=== PATIENT | female | born 1960 | race American Indian/Alaskan Native ===

== ENCOUNTER 2017-08-06 13:09 | Inpatient (IN) | payer MEDICAID ==
[2017-08-06] MEDS ORDERED: Sodium Chloride 0.9% 1,000 ML IV STA ×2 (13:23→15:48)
--- NOTE | 2017-08-06 13:35 | ED PDOC ---
Arrival/HPI - General Chief Complaint: Substance Abuse Time Seen by Provider: 08/06/17 13:11 Historian: Patient - History of Present Illness Narrative History of Present Illness (Text): 08/06/17 13:18 A 56 year old female, whose past medical history includes hypertension and substance abuse, who is brought in by EMS to the emergency department for AMS. Per EMS, patient was found by on the bathroom floor unresponsive. Patient has been administered Narcan 4 mg intranasally in the field. Upon arrival, patient found to be agitated and yelling, and she attempted to climb out of the stretcher. Here in the ER, patient has now been sedated. Limited HPI and ROS due to patient's AMS. No PMD Past Medical History - Provider Review Nursing Documentation Reviewed: Yes - Psychiatric Hx Substance Use: Yes (heroine) Family/Social History - Physician Review Nursing Documentation Reviewed: Yes Family/Social History: No Known Family HX Smoking Status: Unknown If Ever Smoked Hx Alcohol Use: No Hx Substance Use: Yes (heroine) Allergies/Home Meds Allergies/Adverse Reactions: Allergies No Known Allergies Allergy (Verified 08/06/17 13:12) Home Medications: Home Meds Medication Instructions Recorded Confirmed Unobtainable 08/06/17 08/06/17 Review of Systems - Review of Systems Systems not reviewed;Unavailable: Altered Mental Status Physical Exam Vital Signs Reviewed: Yes Vital Signs Temp Pulse Pulse Resp BP Pulse Ox 08/06/17 16:50 100 08/06/17 16:46 96 H 25 H 142/112 H 98 08/06/17 16:42 85 25 H 08/06/17 15:37 100 F H 123 H 123 H 20 121/22 L 08/06/17 13:21 100 F H 123 H 20 121/72 99 Temperature: Febrile Blood Pressure: Normal Pulse: Tachycardic Respiratory Rate: Normal Appearance: Positive for: Ill-Appearing Pain Distress: None Mental Status: Positive for: Agitated (patient in AMS state, agitated and yelling), other (obese) Finger Stick Blood Glucose: 190 - Systems Exam Pupils: Present: Pinpoint (dilated) Cardiovascular: Present: Tachycardic Medical Decision Making ED Course and Treatment: 08/06/17 13:22 Impression: 56 year old female with AMS. Plan: -- EKG -- Head CT -- Chest X-ray -- Labs -- Venous Blood Gas -- Urinalysis -- IV Fluids -- Geoden Inj. -- Reassess and disposition Progress Notes: 08/06/17 13:47 Code Sepsis called. 08/06/2017 14:23 Chest X-ray IMPRESSION: No active disease. Dictator: Raymundo Atkinson MD 08/07/17 07:42 pt with suspect heroin od. upnn arrival agited, ?withdrawla vs sepsis. note leukocytosis la, code sepsis called. geodon given in itialy for agitation. antibiotics ordered. tachycardia improved s/p fluids. accepted icu and by hospitalist. - Lab Interpretations Lab Results: 08/06/17 13:37 08/06/17 13:37 Lab Results 08/06/17 13:37: Thyroxine (T4) 8.1, Total T3 1.09, TSH 3rd Generation 0.76 08/06/17 13:37: Alcohol, Quantitative < 10 08/06/17 13:37: Salicylates < 1 L, Acetaminophen < 10.0 L 08/06/17 13:37: Sodium 141, Chloride 102, Potassium 3.1 L, Carbon Dioxide 21, Anion Gap 20, BUN 17, Creatinine 1.0, Est GFR ( Amer) > 60, Est GFR (Non- Af Amer) 58, Random Glucose 203 H, Calcium 9.7, Magnesium 2.1, Total Bilirubin 0.8, AST 225 H, ALT 83 H, Alkaline Phosphatase 116, Lactate Dehydrogenase 842 H , Total Creatine Kinase 93, Troponin I 0.02, Total Protein 8.3, Albumin 4.7, Globulin 3.7, Albumin/Globulin Ratio 1.3 08/06/17 13:37: PT 12.9 H, INR 1.12 H, APTT 26.1 08/06/17 13:37: WBC 13.4 H, RBC 3.80, Hgb 11.7 L, Hct 34.1 L, MCV 89.7, MCH 30.8 , MCHC 34.3, RDW 13.4, Plt Count 314, MPV 9.3, Gran % 53.2, Lymph % (Auto) 41.0 H, [place] % (Auto) 4.1, Eos % (Auto) 1.6, Baso % (Auto) 0.1, Gran # 7.14 H, Lymph # (Auto) 5.5 H, [place] # (Auto) 0.6, Eos # (Auto) 0.2, Baso # (Auto) 0.01 08/06/17 13:37: pO2 80 H, VBG pH 7.34, VBG pCO2 42.0, VBG HCO3 22.7, VBG Total CO2 24.0, VBG O2 Sat (Calc) 98.1 H, VBG Base Excess -3.0 L, VBG Potassium 2.8 L , Sodium 140.0, Chloride 105.0, Glucose 214 H, Lactate 6.3 H*, FiO2 21.0, Venous Blood Potassium 2.8 L I have reviewed the lab results: Yes - RAD Interpretation Radiology Orders: 08/06/17 13:22 CHEST PORTABLE [RAD] Stat 08/06/17 13:28 HEAD W/O CONTRAST [CT] Stat 08/06/17 14:04 ABD & PELVIS IV CONTRAST ONLY [CT] Stat - Medication Orders Current Medication Orders: Enoxaparin Sodium (Lovenox) 40 mg SC DAILY SUBHASH PRN Reason: Protocol Last Admin: 08/06/17 15:29 Dose: 40 mg MAR aPTT Document 08/06/17 15:29 EQ (Rec: 08/06/17 15:29 EQ [id number]) aPTT aPTT (secs) 26.1 Subcutaneous Administrations Document 08/06/17 15:29 EQ (Rec: 08/06/17 15:29 EQ [id number]) Injection Site MAR Injection Site Left Deltoid Charges for Administration # of Subcutaneous Administrations 1 Ceftriaxone Sodium (Rocephin 1 Gram Ivpb) 1 gm in 100 mls @ 100 mls/hr IVPB DAILY SUBHASH PRN Reason: Protocol Last Admin: 08/06/17 21:37 Dose: 100 mls/hr eMAR Start Stop Document 08/06/17 21:37 MG (Rec: 08/06/17 21:41 MG [id number]) Intravenous Solution Start Date 08/06/17 Start Time 21:41 Lactated Ringer's (Lactated Ringer's) 1,000 mls @ 150 mls/hr IV .Q6H40M SUBHASH Last Admin: 08/07/17 00:40 Dose: 150 mls/hr eMAR Start Stop Document 08/07/17 00:40 MG (Rec: 08/07/17 06:58 MG [id number]) Intravenous Solution Start Date 08/06/17 Start Time 00:40 Lorazepam (Ativan) 2 mg IVP Q6H PRN; Protocol PRN Reason: Agitation Pantoprazole Sodium (Protonix Inj) 40 mg IVP DAILY SUBHASH Discontinued Medications Acetaminophen (Tylenol 650 Mg Supp) 650 mg RC STAT STA Stop: 08/06/17 14:27 Last Admin: 08/06/17 15:29 Dose: 650 mg MAR Pain/Vitals Document 08/06/17 15:29 EQ (Rec: 08/06/17 15:29 EQ [id number]) Pain Reassessment Is This A Pain ReAssessment? No Sleep Is patient sleeping during reassessment? No Presence of Pain Presence of Pain Yes Sodium Chloride (Sodium Chloride 0.9%) 1,000 mls @ 999 mls/hr IV .Q1H1M STA Stop: 08/06/17 14:23 Last Admin: 08/06/17 13:34 Dose: 999 mls/hr eMAR Start Stop Document 08/06/17 13:34 EQ (Rec: 08/06/17 13:34 EQ [id number]) Intravenous Solution Start Date 08/06/17 Start Time 13:34 Vancomycin HCl (Vancomycin 1gm) 1 gm in 250 mls @ 167 mls/hr IVPB STAT STA PRN Reason: Protocol Stop: 08/06/17 15:15 Last Admin: 08/06/17 15:26 Dose: 167 mls/hr eMAR Start Stop Document 08/06/17 15:26 EQ (Rec: 08/06/17 15:28 EQ [id number]) Intravenous Solution Start Date 08/06/17 Start Time 15:27 Piperacillin Sod/Tazobactam Sod (Zosyn 3.375 In Ns 100ml) 100 mls @ 200 mls/hr IVPB STAT STA PRN Reason: Protocol Stop: 08/06/17 14:15 Last Admin: 08/06/17 14:08 Dose: 200 mls/hr eMAR Start Stop Document 08/06/17 14:08 EQ (Rec: 08/06/17 14:10 EQ [id number]) Intravenous Solution Start Date 08/06/17 Start Time 14:08 Potassium Chloride (Potassium Chloride 10 Meq/100 Ml) 10 meq in 100 mls @ 50 mls/hr IVPB Q2H SUBHASH Stop: 08/06/17 18:14 Sodium Chloride (Sodium Chloride 0.9%) 1,000 mls @ 150 mls/hr IV .Q6H40M SUBHASH Last Admin: 08/06/17 15:30 Dose: 150 mls/hr eMAR Start Stop Document 08/06/17 15:30 EQ (Rec: 08/06/17 15:30 EQ [id number]) Intravenous Solution Start Date 08/06/17 Start Time 15:30 Potassium Chloride (Potassium Chloride 20 Meq/100 Ml) 20 meq in 100 mls @ 50 mls/hr IVPB Q2H SUBHASH Stop: 08/06/17 18:44 Last Admin: 08/06/17 15:29 Dose: 50 mls/hr eMAR Start Stop Document 08/06/17 15:29 EQ (Rec: 08/06/17 15:29 EQ [id number]) Intravenous Solution Start Date 08/06/17 Start Time 15:29 Sodium Chloride (Sodium Chloride 0.9%) 1,000 mls @ 999 mls/hr IV .Q1H1M STA Stop: 08/06/17 16:48 Sodium Chloride (Sodium Chloride 0.9%) 500 mls @ 999 mls/hr IV .Q31M STA Stop: 08/06/17 16:19 Potassium Chloride (Potassium Chloride 10 Meq/100 Ml) 10 meq in 100 mls @ 50 mls/hr IVPB Q2H SUBHASH Stop: 08/06/17 22:44 Last Admin: 08/06/17 21:41 Dose: 50 mls/hr eMAR Start Stop Document 08/06/17 21:41 MG (Rec: 08/06/17 21:41 [place] [id number] Intravenous Solution Start Date 08/06/17 Start Time 21:41 Lactated Ringer's (Lactated Ringer's) 1,000 mls @ 100 mls/hr IV .Q10H [facility] Last Admin: 08/06/17 19:54 Dose: 100 mls/hr eMAR Start Stop Document 08/06/17 19:54 KGD (Rec: 08/06/17 19:54 KGD [id number]) Intravenous Solution Start Date 08/06/17 Start Time 19:54 Lorazepam (Ativan) 2 mg IVP ONCE ONE PRN Reason: Protocol Stop: 08/06/17 14:20 Last Admin: 08/06/17 14:23 Dose: 2 mg IVP Administration Document 08/06/17 14:23 EQ (Rec: 08/06/17 14:23 EQ [id number]) Charges for Administration # of IVP Administrations 1 Pneumococcal Polyvalent Vaccine (Pneumovax 23 Vaccine) 0.5 ml IM .ONCE ONE Stop: 08/06/17 15:57 Ziprasidone (Geodon Inj) 20 mg IM STAT STA PRN Reason: Protocol Stop: 08/06/17 13:24 Last Admin: 08/06/17 13:34 Dose: 20 mg IM Administration Charges Document 08/06/17 13:34 EQ (Rec: 08/06/17 13:34 EQ [id number]) Injection Site MAR Injection Site Left Deltoid Charges for Administration # of IM Administrations 1 - Scribe Statement The provider has reviewed the documentation as recorded by the Kervin Caal Provider Scribe Attestation: All medical record entries made by the Kervin were at my direction and personally dictated by me. I have reviewed the chart and agree that the record accurately reflects my personal performance of the history, physical exam, medical decision making, and the department course for this patient. I have also personally directed, reviewed, and agree with the discharge instructions and disposition. Disposition/Present on Arrival - Present on Arrival Any Indicators Present on Arrival: No History of DVT/PE: No History of Uncontrolled Diabetes: No Urinary Catheter: No History of Decub. Ulcer: No History Surgical Site Infection Following: None - Disposition Have Diagnosis and Disposition been Completed?: Yes Diagnosis: Overdose, Lactic acidosis, Sepsis, UTI (urinary tract infection) Disposition: HOSPITALIZED Disposition Time: 02:00 Patient Problems: Current Active Problems Problem Status Onset Lactic acidosis Acute Overdose Acute Sepsis Acute UTI (urinary tract infection) Acute Condition: CRITICAL
[2017-08-06 13:44] LABS: VENOUS BLOOD GAS PO2 80 mm/Hg (30-55); VENOUS BLOOD PH 7.34 (7.32-7.43)
[2017-08-06] MEDS ORDERED: Piperacillin/Tazobact 3.375 gm 100 ML IVPB STA (13:46)
[2017-08-06] MEDS ORDERED: Vancomycin 1gm in NS 250ml 1 GM/250 ML BAG IVPB STA (13:46)
[2017-08-06 13:47] LABS: BASO # 0.01 K/mm3 (0.0-2.0); BASO % 0.1 % (0.0-3.0); EOS # 0.2 (0.0-0.7); EOS % 1.6 % (1.5-5.0); GRAN # 7.14 (1.4-6.5); GRAN % 53.2 % (50.0-68.0); HEMOGLOBIN 11.7 g/dL (12.0-16.0); LYMPH # 5.5 (1.2-3.4); MEAN CELL VOLUME 89.7 fl (80.0-105.0); MEAN CORPUSCULAR HEMOGLOBIN 30.8 pg (25.0-35.0); MEAN CORPUSCULAR HGB CONC 34.3 g/dl (31.0-37.0); MEAN PLATELET VOLUME 9.3 fl (7.0-11.0); MONO # 0.6 (0.1-0.6); MONO % 4.1 % (1.0-6.0); RBC 3.8 10^6/uL (3.5-6.1); RED CELL DISTRIBUTION WIDTH 13.4 % (11.5-14.5); WHITE BLOOD COUNT 13.4 10^3/ul (4.5-11.0)
[2017-08-06 13:58] LABS: ALB/GLOB RATIO 1.3 (1.1-1.8); ALBUMIN 4.7 g/dL (3.0-4.8); ALT/SGPT 83 U/L (7-56); AST/SGOT 225 U/L (14-36); BLOOD UREA NITROGEN 17 mg/dL (7-21); CALCIUM 9.7 mg/dL (8.4-10.5); GFR AFRICAN-AMERICAN > 60; GFR NON-AFRICAN AMERICAN 58
[2017-08-06 13:59] LABS: ACETAMINOPHEN < 10.0 ug/ml (10.0-20.0); SALICYLATE < 1 mg/dL (2.0-20.0)
[2017-08-06 14:04] LABS: INR 1.12 (0.93-1.08); PARTIAL THROMBOPLASTIN TIME 26.1 Seconds (25.1-36.5); PROTHROMBIN TIME 12.9 SECONDS (9.4-12.5)
[2017-08-06 14:09] LABS: TROPONIN I 0.02 ng/mL
[2017-08-06] MEDS ORDERED: Iohexol 350 MG/100 ML VIAL ONE (14:16)
--- NOTE | 2017-08-06 14:25 | RAD ---
HISTORY: Altered mental status COMPARISON: No prior. FINDINGS: LUNGS: No active pulmonary disease. PLEURA: No significant pleural effusion identified, no pneumothorax apparent. CARDIOVASCULAR: Normal. OSSEOUS STRUCTURES: No significant abnormalities. VISUALIZED UPPER ABDOMEN: Normal. OTHER FINDINGS: None. IMPRESSION: No active disease.
[2017-08-06] MEDS ORDERED: Sodium Chloride 0.9% 1,000 ML IV SCH (14:45)
--- NOTE | 2017-08-06 15:23 | CT ---
PROCEDURE: CT HEAD WITHOUT CONTRAST. HISTORY: Altered mental status COMPARISON: None available. TECHNIQUE: Axial computed tomography images were obtained through the head/brain without intravenous contrast. Radiation dose: Total exam DLP = 891.86 mGy-cm. This CT exam was performed using one or more of the following dose reduction techniques: Automated exposure control, adjustment of the mA and/or kV according to patient size, and/or use of iterative reconstruction technique. FINDINGS: HEMORRHAGE: No intracranial hemorrhage. BRAIN: No mass effect or edema. No atrophy or chronic microvascular ischemic changes. VENTRICLES: Unremarkable. No hydrocephalus. CALVARIUM: Unremarkable. PARANASAL SINUSES: Unremarkable as visualized. No significant inflammatory changes. MASTOID AIR CELLS: Unremarkable as visualized. No inflammatory changes. OTHER FINDINGS: None. IMPRESSION: No acute intracranial abnormalities. No significant findings to account for the clinical presentation.
--- NOTE | 2017-08-06 15:26 | CT ---
PROCEDURE: CT Abdomen and Pelvis with contrast HISTORY: sepsis, leukocytosis COMPARISON: None. TECHNIQUE: Contrast dose: 100 cc Omnipaque 350 Radiation dose: Total exam DLP = 1085.89 mGy-cm. This CT exam was performed using one or more of the following dose reduction techniques: Automated exposure control, adjustment of the mA and/or kV according to patient size, and/or use of iterative reconstruction technique. FINDINGS: LOWER THORAX: Unremarkable. LIVER: Unremarkable. No gross lesion or ductal dilatation. GALLBLADDER AND BILE DUCTS: Cholelithiasis without CT evidence of acute cholecystitis. PANCREAS: Unremarkable. No gross lesion or ductal dilatation. SPLEEN: Unremarkable. ADRENALS: Unremarkable. No mass. KIDNEYS AND URETERS: Unremarkable. No hydronephrosis. No solid mass. VASCULATURE: Unremarkable. No aortic aneurysm. BOWEL: Unremarkable. No obstruction. No gross mural thickening. APPENDIX: Normal appendix. PERITONEUM: Unremarkable. No free fluid. No free air. LYMPH NODES: Unremarkable. No enlarged lymph nodes. BLADDER: Unremarkable. REPRODUCTIVE: Unremarkable. BONES: No acute fracture. OTHER FINDINGS: None. IMPRESSION: Cholelithiasis without CT evidence of acute cholecystitis. Otherwise unremarkable study without acute findings to account for the clinical presentation
[2017-08-06] MEDS: Enoxaparin 40 mg Syringe SC SCH (15:29)
[2017-08-06 15:35] LABS: URINE BILIRUBIN NEGATIVE (NEGATIVE); URINE BLOOD TRACE-LYSED (NEGATIVE); URINE COLOR YELLOW (YELLOW); URINE GLUCOSE (UA) 100 mg/dL (NEGATIVE); URINE LEUKOCYTE ESTERASE SMALL Leu/uL (NEGATIVE); URINE PROTEIN NEGATIVE mg/dL (<30 mg/dL); URINE UROBILINOGEN 0.2 E.U./dL (<1 E.U./dL)
[2017-08-06 15:42] LABS: URINE BACTERIA MOD (NEG)
[2017-08-06 15:43] LABS: URINE APPEARANCE SL CLOUDY (CLEAR)
[2017-08-06 15:45] LABS: T4 8.1 ug/dL (5.5-11.0)
[2017-08-06] MEDS ORDERED: Sodium Chloride 0.9% 500 ML IV STA (15:49)
[2017-08-06 15:50] LABS: BARBITURATES, UR NEGATIVE (NEGATIVE); BENZODIAZEPINES, UR NEGATIVE (NEGATIVE); OPIATES, UR POSITIVE (NEGATIVE); PHENCYCLIDINE, UR NEGATIVE (NEGATIVE)
[2017-08-06 15:51] LABS: ARTERIAL BLOOD GAS HCO3 24.8 mmol/L (21-28); ARTERIAL BLOOD GAS O2 SAT 97.9 % (95-98); ARTERIAL BLOOD GAS PCO2 41 mm/Hg (35-45); ARTERIAL BLOOD GAS PH 7.39 (7.35-7.45); ARTERIAL BLOOD GAS TCO2 26.1 mmol.L (22-28)
[2017-08-06 15:56] VITALS: BMI 30.3
[2017-08-06] MEDS ORDERED: Pneumococcal 23-Valent Vaccine IM ONE (15:56)
[2017-08-06 15:58] LABS: T3 1.09 ng/mL (0.97-1.69)
--- NOTE | 2017-08-06 16:21 | CP.PCM.HP ---
<Jen Contreras - Last Filed: 08/06/17 15:44> History of Present Illness - History of Present Illness History of Present Illness: Jen Contreras, PGY1, H&P for Dr Castañeda: CC: AMS 56 year old female, with PMH HTN, substance abuse, brought in by EMS to [facility] [place] [facility] ED for AMS. At my time of examination, patient agitated, confused, uncooperative. Most HPI obtained from son and boyfriend, staff members, medical records. As per boyfriend, patient was in her usual state of health this morning. Around 12: 30 PM, he found patient kneeling down in toilet bowel with dilated pupils and not responding to his questions. He noted a bag of heroin there. Denies LOC, jerking movements of body, urinary/bowel incontinence. When EMS arrived, they gave Narcan 4 mg. Upon arrival to ED, patient agitated, screaming but confused. Given Geodon and ativan here. As per boyfriend, patient has been complaining of intermittent cp for past few weeks. Denies prior stress test or cardiac cath. In ED, pt had temp 100F, tachycardic 120's, mild leukocytosis 13.4, lactic acid 6.3, K 3.1. elevated LFTs, UA pos for infection. Head CT negative. CT abd pelvis showed no infection, + cholelithiasis. Code sepsis called. Given 2.5 L IVF, vanco, zosyn. 12 point ROS unobtainable as patient is AMS. PMD: denies Pharm: INS: Medicaid [employer] [place] [employer] PMH: HTN, substance abuse PSH: denies NKA FH: HTN Father, cancer SH: lives with boyfriend. Snorts heroin. Denies tobacco use. + 3 beers/day for 15 years. Present on Admission - Present on Admission Any Indicators Present on Admission: No History of DVT/PE: No History of Uncontrolled Diabetes: No Urinary Catheter: No Decubitus Ulcer Present: No Review of Systems - Review of Systems Systems not reviewed;Unavailable: Altered Mental Status, Uncooperative Past Patient History - Past Social History Smoking Status: Unknown If Ever Smoked - CARDIAC Hx Cardiac Disorders: Yes (chest pain) Hx Hypertension: Yes - PULMONARY Hx Respiratory Disorders: No - NEUROLOGICAL Hx Neurological Disorder: No - HEENT Hx HEENT Problems: No - RENAL Hx Chronic Kidney Disease: No - ENDOCRINE/METABOLIC Hx Endocrine Disorders: No - HEMATOLOGICAL/ONCOLOGICAL Hx Blood Disorders: No - INTEGUMENTARY Hx Dermatological Problems: Yes Other/Comment: dark skin discolorations ble - MUSCULOSKELETAL/RHEUMATOLOGICAL Hx Musculoskeletal Disorders: Yes Hx Unsteady Gait: Yes - GASTROINTESTINAL Hx Gastrointestinal Disorders: Yes (obese) - GENITOURINARY/GYNECOLOGICAL Hx Genitourinary Disorders: No - PSYCHIATRIC Hx Psychophysiologic Disorder: Yes Other/Comment: heroine abuse, occasional beer - SURGICAL HISTORY Hx Surgeries: No Meds Allergies/Adverse Reactions: Allergies Allergy/AdvReac Type Severity Reaction Status Date / Time No Known Allergies Allergy Verified 08/06/17 13:12 Physical Exam - Constitutional Appears: Older Than Stated Age, Combative, Agitated, Confused - Head Exam Head Exam: ATRAUMATIC, NORMOCEPHALIC - Eye Exam Eye Exam: Normal appearance. absent: Conjunctival injection, Nystagmus, Scleral icterus Pupil Exam: Mydriatic (4 mm bilaterally). absent: Fixed, Irregular, Miosis, Unequal - ENT Exam ENT Exam: Mucous Membranes Dry - Neck Exam Neck exam: Positive for: Full Rom - Respiratory Exam Respiratory Exam: Clear to Auscultation Bilateral, NORMAL BREATHING PATTERN. absent: Accessory Muscle Use, Rales, Rhonchi, Wheezes, Stridor - Cardiovascular Exam Cardiovascular Exam: Tachycardia, +S1, +S2. absent: Systolic Murmur - GI/Abdominal Exam GI & Abdominal Exam: Normal Bowel Sounds, Soft. absent: Distended, Firm, Guarding, Mass, Organomegaly, Rebound, Rigid, Tenderness - Extremities Exam Extremities exam: Positive for: normal capillary refill, normal inspection, pedal pulses present. Negative for: calf tenderness, pedal edema - Back Exam Back exam: NORMAL INSPECTION. absent: CVA tenderness (L), CVA tenderness (R) - Neurological Exam Additional comments: + awake, oriented to self only. Uncooperative with exam. Moving all extremities No facial droop. - Psychiatric Exam Psychiatric exam: Agitated - Skin Skin Exam: Dry, Normal Color, Warm Results - Vital Signs Recent Vital Signs: Last Vital Signs Temp 100 F H 08/06/17 13:21 Pulse 123 H 08/06/17 13:21 Resp 20 08/06/17 13:21 BP 121/72 08/06/17 13:21 Pulse Ox 99 08/06/17 13:21 - Labs Result Diagrams: 08/06/17 13:37 08/06/17 13:37 Labs: Laboratory Results - last 24 hr 08/06/17 15:15 Urine Color Yellow Urine Appearance Sl cloudy Urine pH 6.0 Ur Specific [place] <= 1.005 Urine Protein Negative Urine Glucose (UA) 100 H Urine Ketones Negative Urine Blood Trace-lysed H Urine Nitrate Negative Urine Bilirubin Negative Urine Urobilinogen 0.2 Ur Leukocyte Esterase Small H Urine RBC 1 - 3 Urine WBC 10 - 15 Ur Epithelial Cells 4 - 5 Urine Bacteria Mod Assessment & Plan - Assessment and Plan (Free Text) Assessment: 56 year old female with PMH HTN, substance abuse, presents for AMS, found to be septic, elevated lactic acidosis, UTI, transaminitis, elevated trop: AMS: 2/2 drug use vs sepsis vs seizure vs CVA - admitted to ICU for airway protection - F/u UDS. - etoh, salicylate, tylenol levels negative - Received geodon and ativan 2 mg IV in ED - Ativan prn agitation - mild temperature 100F, leukocytosis 13.4, lactate 6.3. trend lactate/wbc - Given 1L NS bolus, Vanco, Zosyn in ED. Will give additional 2.5L NS bolus, as per sepsis protocol - 30 ml/kg/hr - UA positive for mild infection. F/u urine culture, blood cultures - CXR neg for pulmonary congestion/infiltrates - CT abd pelvis shows cholelithiasis, no inflammation. - F/u procalcitonin - Rocephin IV - ID consult. F/u recs - CK level normal. f/u prolactin - EEG f/u - Head CT negative - neurochecks, seizure precautions, fall precautions Elevated trop: - EKG shows sinus tachycardia. HR 123. No ST/T wave abnormalities. QTc 426 ms. - trop 0.02. - patient complains of intermittent cp at home - TSH, lipid panel, A1C - serial trops x2 f/u - echocardiogram Transaminitis: 2/2 alcohol use vs hepatitis vs ischemic colitis - etoh level neg - Discriminant factor 5 - patient's family reports a long history of alcohol abuse - 3 beers/day for many years - hepatitis panel - monitor Hypokalemia: - repleted - monitor hx if HTN: - BP normal - monitor Hx of substance abuse: - advised cessation - f/u UDS - ativan prn Hx of alcohol use: - advised cessation - CIWA protocol - seizure precautions, neurochecks - fall precautions - ativan prn PPX: lovenox sq, protonix Dispo: upon discharge, patient will follow up with [facility] clinic at [facility] Case seen and discussed with Dr Castañeda. Jen Contreras PGY1 - Date & Time Date: 08/06/17 Time: 16:21 <Sarthak Castañeda - Last Filed: 08/06/17 18:36> Results - Vital Signs Recent Vital Signs: Last Vital Signs Temp 100 F H 08/06/17 15:37 Pulse 113 H 08/06/17 17:24 Resp 18 08/06/17 17:24 BP 122/79 08/06/17 17:24 Pulse Ox 100 08/06/17 17:24 - Labs Result Diagrams: 08/06/17 13:37 08/06/17 13:37 Labs: Laboratory Results - last 24 hr 08/06/17 08/06/17 08/06/17 15:15 15:15 15:46 pCO2 41 pO2 72.0 L HCO3 24.8 ABG pH 7.39 ABG Total CO2 26.1 ABG O2 Saturation 97.9 ABG Base Excess -0.2 ABG Potassium 3.2 L VBG pH VBG pCO2 VBG HCO3 VBG Total CO2 VBG O2 Sat (Calc) VBG Base Excess VBG Potassium Sodium 141.0 Chloride 110.0 H Glucose 141 H Lactate 1.5 FiO2 21.0 Arterial Blood Potassium 3.2 L Venous Blood Potassium Urine Color Yellow Urine Appearance Sl cloudy Urine pH 6.0 Ur Specific [place] <= 1.005 Urine Protein Negative Urine Glucose (UA) 100 H Urine Ketones Negative Urine Blood Trace-lysed H Urine Nitrate Negative Urine Bilirubin Negative Urine Urobilinogen 0.2 Ur Leukocyte Esterase Small H Urine RBC 1 - 3 Urine WBC 10 - 15 Ur Epithelial Cells 4 - 5 Urine Bacteria Mod Urine Opiates Screen Positive H Urine Methadone Screen Negative Ur Barbiturates Screen Negative Ur Phencyclidine Scrn Negative Ur Amphetamines Screen Negative U Benzodiazepines Scrn Negative U Oth Cocaine Metabols Negative U Cannabinoids Screen Negative 08/06/17 17:40 pCO2 pO2 25 L HCO3 ABG pH ABG Total CO2 ABG O2 Saturation ABG Base Excess ABG Potassium VBG pH 7.34 VBG pCO2 51.0 VBG HCO3 27.5 VBG Total CO2 29.1 H VBG O2 Sat (Calc) 57.6 VBG Base Excess 0.9 VBG Potassium 4.0 Sodium 141.0 Chloride 107.0 Glucose 112 H Lactate 2.0 FiO2 21.0 Arterial Blood Potassium Venous Blood Potassium 4.0 Urine Color Urine Appearance Urine pH Ur Specific [place] Urine Protein Urine Glucose (UA) Urine Ketones Urine Blood Urine Nitrate Urine Bilirubin Urine Urobilinogen Ur Leukocyte Esterase Urine RBC Urine WBC Ur Epithelial Cells Urine Bacteria Urine Opiates Screen Urine Methadone Screen Ur Barbiturates Screen Ur Phencyclidine Scrn Ur Amphetamines Screen U Benzodiazepines Scrn U Oth Cocaine Metabols U Cannabinoids Screen Attending/Attestation - Attestation I have personally seen and examined this patient.: Yes I have fully participated in the care of the patient.: Yes I have reviewed all pertinent clinical information: Yes Notes (Text): 08/06/17 18:31 Medical record note made by the resident after discussion with my direction and input after the patient was personally seen and examined by me. I have reviewed the chart and agree that the record accurately reflects by personal performance of the history, physical exam, data review, and medical decision-making, in the course for the patient. I have also personally directed the plan of care. 56 year old female, with PMH HTN, substance abuse is admitted with change of mental status, also found to have low grade fever 100 F , leukocytosis, elevated transaminase and lactic acidosis.The etiology of change of mental status is harriet to drug abuse and possible sepsis.Patient was given IV Vancomycin and Zosyn in ER.At this we will continue IV hydration, antibiotics and will follow up cultures.We will follow up lactic acid. Borderline troponin, will monitor serial troponin, we will get 2D Echo. We will watch patient for alcohol withdrawal.Elevated transaminase is likely due to alcohol abuse, we will monitor.
[2017-08-06 18:01] LABS: VENOUS BLOOD GAS BASE EXCESS 0.9 mmol/L (0.0-2.0); VENOUS BLOOD GAS PO2 25 mm/Hg (30-55); VENOUS BLOOD PH 7.34 (7.32-7.43)
[2017-08-06 18:43] LABS: ARTERIAL BLOOD GAS HCO3 22.7 mmol/L (21-28); ARTERIAL BLOOD GAS O2 SAT 96.9 % (95-98); ARTERIAL BLOOD GAS PCO2 35 mm/Hg (35-45); ARTERIAL BLOOD GAS PH 7.42 (7.35-7.45); ARTERIAL BLOOD GAS TCO2 23.8 mmol.L (22-28)
[2017-08-06] MEDS ORDERED: Lactated Ringer's 1,000 ML IV SCH (18:45)
--- NOTE | 2017-08-06 19:14 | PCM.SEPTIC ---
<Jen Contreras - Last Filed: 08/06/17 19:13> Sepsis Progress Note - Reassessment Type Date of Evaluation: 08/06/17 Time of Evaluation: 19:14 Reassessment Type: Non-invasive reassessment - Non Invasive Reassessment Were the most recent vital sign reviewed: Yes Vital Sign (Latest): Temp Pulse Resp BP Pulse Ox 100 F H 93 H 24 122/79 100 08/06/17 15:37 08/06/17 18:50 08/06/17 18:50 08/06/17 17:24 08/06/17 18:50 Cardiovascular: Yes: Regular Rate, Rhythm Respiratory: Yes: Normal Breath Sounds Capillary Refill: Normal (Less than 2 sec) Pulses: Normal Radial, Normal Dorsalis Pedis, Normal Posterior Tibialis Skin: Warm, Dry <Sarthak Castañeda - Last Filed: 08/07/17 10:52> Sepsis Progress Note - Non Invasive Reassessment Vital Sign (Latest): Temp Pulse Resp BP Pulse Ox 100 F H 69 22 153/94 H 100 08/06/17 15:37 08/07/17 10:40 08/07/17 10:40 08/07/17 10:00 08/07/17 10:40 Attending/Attestation - Attestation I have fully participated in the care of the patient.: Yes I have reviewed all pertinent clinical information, including history, physical exam and plan: Yes
--- NOTE | 2017-08-06 20:05 | CP.PCM.CON ---
History of Present Illness - History of Present Illness History of Present Illness: Infectious Disease Consultation: August 06, 2017 56 yo female found by boyfriend in altered mental status kneeling the bathroom with dilated pupils. Bag of heroin found next to patient at that time. Patient was given Narcan by EMS and again in ER. The patient has been mostly uncooperative, confused, and agitated. As per boyfriend, the patient was in her usual state of health on the morning of admission. The patient may have had some chest pain for the past few weeks. PMHx: HTN, substance abuse PSHx: none given Allergies: NKDA Social Hx: Snorts heroin, lives with boyfriend. No tobacco use 3 beers/day for 15 years. Active Medications Enoxaparin Sodium (Lovenox) 40 mg SC DAILY [facility] PRN Reason: Protocol Last Admin: 08/06/17 15:29 Dose: 40 mg Ceftriaxone Sodium (Rocephin 1 Gram Ivpb) 1 gm in 100 mls @ 100 mls/hr IVPB DAILY [facility] PRN Reason: Protocol Potassium Chloride (Potassium Chloride 10 Meq/100 Ml) 10 meq in 100 mls @ 50 mls/hr IVPB Q2H [facility] Stop: 08/06/17 22:44 Lactated Ringer's (Lactated Ringer's) 1,000 mls @ 100 mls/hr IV .Q10H [facility] Lorazepam (Ativan) 2 mg IVP Q6H PRN; Protocol PRN Reason: Agitation Pantoprazole Sodium (Protonix Inj) 40 mg IVP DAILY [facility] Family Hx: HTN ROS: Unable to obtain at this time. Past Patient History - Past Social History Smoking Status: Unknown If Ever Smoked - CARDIAC Hx Cardiac Disorders: Yes (chest pain) Hx Hypertension: Yes - PULMONARY Hx Respiratory Disorders: No - NEUROLOGICAL Hx Neurological Disorder: No - HEENT Hx HEENT Problems: No - RENAL Hx Chronic Kidney Disease: No - ENDOCRINE/METABOLIC Hx Endocrine Disorders: No - HEMATOLOGICAL/ONCOLOGICAL Hx Blood Disorders: No - INTEGUMENTARY Hx Dermatological Problems: Yes Other/Comment: dark skin discolorations ble - MUSCULOSKELETAL/RHEUMATOLOGICAL Hx Musculoskeletal Disorders: Yes Hx Unsteady Gait: Yes - GASTROINTESTINAL Hx Gastrointestinal Disorders: Yes (obese) - GENITOURINARY/GYNECOLOGICAL Hx Genitourinary Disorders: No - PSYCHIATRIC Hx Psychophysiologic Disorder: Yes Other/Comment: heroine abuse, occasional beer - SURGICAL HISTORY Hx Surgeries: No Meds Allergies/Adverse Reactions: Allergies Allergy/AdvReac Type Severity Reaction Status Date / Time No Known Allergies Allergy Verified 08/06/17 13:12 - Medications Medications: Current Medications Enoxaparin Sodium (Lovenox) 40 mg SC DAILY [facility] PRN Reason: Protocol Last Admin: 08/06/17 15:29 Dose: 40 mg Ceftriaxone Sodium (Rocephin 1 Gram Ivpb) 1 gm in 100 mls @ 100 mls/hr IVPB DAILY [facility] PRN Reason: Protocol Potassium Chloride (Potassium Chloride 10 Meq/100 Ml) 10 meq in 100 mls @ 50 mls/hr IVPB Q2H [facility] Stop: 08/06/17 22:44 Lactated Ringer's (Lactated Ringer's) 1,000 mls @ 100 mls/hr IV .Q10H [facility] Lorazepam (Ativan) 2 mg IVP Q6H PRN; Protocol PRN Reason: Agitation Pantoprazole Sodium (Protonix Inj) 40 mg IVP DAILY [facility] Physical Exam - Constitutional Appears: Older Than Stated Age, Combative, Agitated, Confused - Head Exam Head Exam: ATRAUMATIC, NORMOCEPHALIC - Eye Exam Eye Exam: absent: Conjunctival injection, Scleral icterus Pupil Exam: Mydriatic (4mm bilaterally.). absent: Fixed, Irregular - ENT Exam ENT Exam: Mucous Membranes Dry - Neck Exam Neck exam: Positive for: Full Rom, Normal Inspection - Respiratory Exam Respiratory Exam: Clear to Auscultation Bilateral, NORMAL BREATHING PATTERN. absent: Rales, Rhonchi, Wheezes - Cardiovascular Exam Cardiovascular Exam: Tachycardia, +S1, +S2 - GI/Abdominal Exam GI & Abdominal Exam: Normal Bowel Sounds, Soft. absent: Distended, Tenderness - Extremities Exam Extremities exam: Positive for: full ROM, normal inspection. Negative for: joint swelling, pedal edema - Back Exam Back exam: NORMAL INSPECTION - Neurological Exam Neurological exam: Alert, CN II-XII Intact Additional comments: Orientated to self. - Psychiatric Exam Psychiatric exam: Agitated, Anxious - Skin Skin Exam: Intact, Normal Color Results - Vital Signs Recent Vital Signs: Last Vital Signs Temp 100 F H 08/06/17 15:37 Pulse 93 H 08/06/17 18:50 Resp 24 08/06/17 18:50 BP 122/79 08/06/17 17:24 Pulse Ox 100 08/06/17 18:50 - Labs Result Diagrams: 08/06/17 13:37 08/06/17 13:37 Labs: Laboratory Results - last 24 hr 08/06/17 08/06/17 08/06/17 15:15 15:15 15:46 pCO2 41 pO2 72.0 L HCO3 24.8 ABG pH 7.39 ABG Total CO2 26.1 ABG O2 Saturation 97.9 ABG Base Excess -0.2 ABG Potassium 3.2 L VBG pH VBG pCO2 VBG HCO3 VBG Total CO2 VBG O2 Sat (Calc) VBG Base Excess VBG Potassium Sodium 141.0 Chloride 110.0 H Glucose 141 H Lactate 1.5 FiO2 21.0 Arterial Blood Potassium 3.2 L Venous Blood Potassium Urine Color Yellow Urine Appearance Sl cloudy Urine pH 6.0 Ur Specific Norman <= 1.005 Urine Protein Negative Urine Glucose (UA) 100 H Urine Ketones Negative Urine Blood Trace-lysed H Urine Nitrate Negative Urine Bilirubin Negative Urine Urobilinogen 0.2 Ur Leukocyte Esterase Small H Urine RBC 1 - 3 Urine WBC 10 - 15 Ur Epithelial Cells 4 - 5 Urine Bacteria Mod Urine Opiates Screen Positive H Urine Methadone Screen Negative Ur Barbiturates Screen Negative Ur Phencyclidine Scrn Negative Ur Amphetamines Screen Negative U Benzodiazepines Scrn Negative U Oth Cocaine Metabols Negative U Cannabinoids Screen Negative 08/06/17 17:40 pCO2 pO2 25 L HCO3 ABG pH ABG Total CO2 ABG O2 Saturation ABG Base Excess ABG Potassium VBG pH 7.34 VBG pCO2 51.0 VBG HCO3 27.5 VBG Total CO2 29.1 H VBG O2 Sat (Calc) 57.6 VBG Base Excess 0.9 VBG Potassium 4.0 Sodium 141.0 Chloride 107.0 Glucose 112 H Lactate 2.0 FiO2 21.0 Arterial Blood Potassium Venous Blood Potassium 4.0 Urine Color Urine Appearance Urine pH Ur Specific Norman Urine Protein Urine Glucose (UA) Urine Ketones Urine Blood Urine Nitrate Urine Bilirubin Urine Urobilinogen Ur Leukocyte Esterase Urine RBC Urine WBC Ur Epithelial Cells Urine Bacteria Urine Opiates Screen Urine Methadone Screen Ur Barbiturates Screen Ur Phencyclidine Scrn Ur Amphetamines Screen U Benzodiazepines Scrn U Oth Cocaine Metabols U Cannabinoids Screen Assessment & Plan - Assessment and Plan (Free Text) Assessment: 56 yo female found in altered mental status by boyfriend with bag of heroin nearby. The patient has leukocytosis, hypokalemia, elevates tranaminases, lactic acidosis. Started on Rocephin. Chest X-ray with no signs of active disease. CT abdomen with cholelithiasis but no signs of acute cholecystitis. Opiates positive on urine drug screen. Supportive care. Temperature up to 100.0 F. Cannot rule sepsis vs. aftereffects of excessive heroin ingestion. Maintain Rocephin for now. Thank you for allowing me to participate in the care of the patient, we will follow with you.
--- NOTE | 2017-08-06 20:31 | CON ---
HISTORY OF PRESENT ILLNESS: This is a 56-year-old lady whose past medical history significant for hypertension and heroin abuse, who was brought in by EMS for her altered mental status. The patient received Narcan intranasally and her mental status substantially improved. However, she was found to have significant lactic acidosis and occasionally slipping back to substantial lethargy. She, however, is easily arousable; however, unable to maintain conversation and responds only with short sentences to the question. She, however, appears to be comfortable, not in respiratory or otherwise distress. At some point, the patient was agitated, 20 mg of Geodon IM. She also received 2 mg of Ativan x1. CT of the head, abdomen, and pelvis is pending. No nausea, no vomiting, no diarrhea, no constipation. PAST MEDICAL HISTORY: Hypertension. SOCIAL HISTORY: The patient is a heroin abuser, no alcohol abuse. Unclear whether she ever smoked and not. ALLERGIES: NKDA. FAMILY HISTORY: Noncontributory. MEDICATIONS AT HOME: Unobtainable. REVIEW OF SYSTEMS: Review of 12-organ system other than mentioned in the history of present illness is negative. PHYSICAL EXAMINATION: VITAL SIGNS: Temperature 100, heart rate 123, blood pressure 121/72, respiratory rate 20, oxygen saturation 99% on room air. ENT, HEAD, AND NECK: Atraumatic. LUNGS: Clear to auscultation bilaterally. HEART: Regular rate and rhythm. S1, S2 normal. ABDOMEN: Soft, nontender, and nondistended. MUSCULOSKELETAL: No C/C/E. NEURO: The patient was observed moving all extremities spontaneously. SKIN: Moist. PSYCH: Patient is lethargic, comfortable, easily arousable. She appears to be confused. LABORATORY DATA: WBC 13.4, hemoglobin 11.7, and platelet count 314. Sodium 141, potassium 3.1 (supplemented in the emergency room), chloride is 102, carbon dioxide 21. BUN 17, creatinine 1. Glucose 203. AST 225, ALT 83, total bilirubin 0.8. ABG showed lactic acid 6.3, pH 7.34, pCO2 of 42. INR 1.12. Blood toxicology screen showed negative for salicylates, Tylenol, and alcohol. U-tox screen is pending. Chest x-ray, no active pulmonary disease. EKG showed no specific signs of ischemia. ASSESSMENT AND PLAN: This is a 56-year-old lady who presented with possible opiate overdose. She, however, still did not regain clear consciousness and appeared to be very lethargic, even at times agitated. I am a bit concerned about her sinus tachycardia even without signs of myocardial ischemia. It is possible that she shows signs of opiate withdrawal. I am concerned about lactic acidosis and mild leukocytosis as well. Possibility of sepsis of unclear origin cannot be ruled out at present time. I agree with CT head, abdomen, and pelvis. Her abdominal exam is benign though. However, the source of lactic acidosis is unclear at the present time. Urine will be sent for urinalysis and culture. I will send blood culture and procalcitonin level. I agree with empiric antibiotics. The patient will be admitted to ICU. ABG as well as lactic acid level will be repeated. If the patient continued to be agitated, Precedex drip will be started. At the present time, I would avoid antipsychotics as they lower threshold for seizures, which may be a concern if the patient withdraws from opiates. I will order EEG. The plan may be adjusted based on imaging of her head, abdomen, and pelvis. We will continue with DVT and GI prophylaxes. Aspiration precaution. Head of bed elevated more than 35 degrees. I will check TSH and T4 level, and we will get echocardiogram as well. Addendum: Patient arrived to ICU-->more alert and awake, calm, lactic acidosis resolved, ventilating well, no C02 retention. UA+ve for LE, ceftriaxone started ccm time 40 min Davion Mahan MD [facility]
--- NOTE | 2017-08-06 20:38 | CP.PCM.PN ---
Subjective - Date & Time of Evaluation Date of Evaluation: 08/06/17 Time of Evaluation: 20:38 - Subjective Subjective: # 24 angiocaht was inserted in left hand dorsum. Objective - Vital Signs/Intake and Output Vital Signs (last 24 hours): Temp Pulse Resp BP Pulse Ox 100 F H 77 16 154/83 H 100 08/06/17 15:37 08/06/17 20:30 08/06/17 20:30 08/06/17 20:00 08/06/17 20:30 - Medications Medications: Current Medications Enoxaparin Sodium (Lovenox) 40 mg SC DAILY [facility] PRN Reason: Protocol Last Admin: 08/06/17 15:29 Dose: 40 mg Ceftriaxone Sodium (Rocephin 1 Gram Ivpb) 1 gm in 100 mls @ 100 mls/hr IVPB DAILY [facility] PRN Reason: Protocol Potassium Chloride (Potassium Chloride 10 Meq/100 Ml) 10 meq in 100 mls @ 50 mls/hr IVPB Q2H [facility] Stop: 08/06/17 22:44 Last Admin: 08/06/17 19:52 Dose: 50 mls/hr Lactated Ringer's (Lactated Ringer's) 1,000 mls @ 100 mls/hr IV .Q10H [facility] Last Admin: 08/06/17 19:54 Dose: 100 mls/hr Lorazepam (Ativan) 2 mg IVP Q6H PRN; Protocol PRN Reason: Agitation Pantoprazole Sodium (Protonix Inj) 40 mg IVP DAILY [facility] - Labs Labs: PT 12.9 SECONDS (9.4-12.5) H 08/06/17 13:37 INR 1.12 (0.93-1.08) H 08/06/17 13:37 APTT 26.1 Seconds (25.1-36.5) 08/06/17 13:37
[2017-08-06 21:23] LABS: VENOUS BLOOD GAS BASE EXCESS 3.1 mmol/L (0.0-2.0); VENOUS BLOOD GAS PO2 22 mm/Hg (30-55); VENOUS BLOOD PH 7.37 (7.32-7.43)
[2017-08-06] MEDS: cefTRIAXone 1 gm 1 GM/100 ML BAG IVPB SCH (21:37)
--- NOTE | 2017-08-06 22:43 | CARD ---
APPROVED REPORT EKG Measurement Heart [id number] ID [id number] <Conclusion> Sinus tachycardia with fusion complexes Possible Left atrial enlargement Borderline ECG
[2017-08-07] MEDS: Lactated Ringer's 1,000 ML IV SCH ×2 (00:40→07:00)
[2017-08-07 01:39] LABS: BLOOD UREA NITROGEN 12 mg/dL (7-21); CALCIUM 8.9 mg/dL (8.4-10.5); GFR AFRICAN-AMERICAN > 60; GFR NON-AFRICAN AMERICAN > 60
[2017-08-07 05:40] LABS: BASO # 0.01 K/mm3 (0.0-2.0); BASO % 0.1 % (0.0-3.0); EOS # 0.1 (0.0-0.7); EOS % 0.8 % (1.5-5.0); GRAN # 4.42 (1.4-6.5); GRAN % 58.9 % (50.0-68.0); HEMOGLOBIN 10.9 g/dL (12.0-16.0); LYMPH # 2.5 (1.2-3.4); LYMPH % 33.6 % (22.0-35.0); MEAN CORPUSCULAR HEMOGLOBIN 30.3 pg (25.0-35.0); MEAN CORPUSCULAR HGB CONC 33.6 g/dl (31.0-37.0); MEAN PLATELET VOLUME 9.2 fl (7.0-11.0); MONO # 0.5 (0.1-0.6); MONO % 6.6 % (1.0-6.0); RBC 3.6 10^6/uL (3.5-6.1); RED CELL DISTRIBUTION WIDTH 13.7 % (11.5-14.5); WHITE BLOOD COUNT 7.5 10^3/ul (4.5-11.0)
[2017-08-07 05:50] LABS: ARTERIAL BLOOD GAS O2 SAT 99.2 % (95-98); ARTERIAL BLOOD GAS PCO2 41 mm/Hg (35-45); ARTERIAL BLOOD GAS PH 7.41 (7.35-7.45); ARTERIAL BLOOD GAS TCO2 27.3 mmol.L (22-28)
[2017-08-07 06:14] LABS: LDL CHOLESTEROL 86 mg/dL (0-129)
[2017-08-07 06:16] LABS: ALB/GLOB RATIO 1.2 (1.1-1.8); ALBUMIN 4.3 g/dL (3.0-4.8); ALT/SGPT 73 U/L (7-56); AST/SGOT 80 U/L (14-36); BLOOD UREA NITROGEN 11 mg/dL (7-21); CALCIUM 9.3 mg/dL (8.4-10.5); GFR AFRICAN-AMERICAN > 60; GFR NON-AFRICAN AMERICAN > 60; HDL CHOLESTEROL 57 mg/dL (29-60)
[2017-08-07 06:41] LABS: CK-MB 0.7 ng/mL (0.0-3.6)
--- NOTE | 2017-08-07 07:56 | CP.PCM.PN ---
<Timothy Melendez - Last Filed: 08/07/17 09:30> Subjective - Date & Time of Evaluation Date of Evaluation: 08/07/17 Time of Evaluation: 07:54 - Subjective Subjective: Patient seen and examined this AM. No acute events overnight reported. Patient complaining of constipation and abdominal discomfort. Reports she is not passing flatus. Patient denies chest pain, shortness of breath, fever, chills, nausea, vomiting. Objective - Vital Signs/Intake and Output Vital Signs (last 24 hours): Temp Pulse Resp BP Pulse Ox 100 F H 71 13 101/59 L 100 08/06/17 15:37 08/07/17 06:00 08/07/17 04:00 08/07/17 04:00 08/07/17 04:00 Intake and Output: 08/07/17 08/07/17 06:59 18:59 Intake Total 1850 Output Total 450 Balance 1400 - Medications Medications: Current Medications Enoxaparin Sodium (Lovenox) 40 mg SC DAILY [facility] PRN Reason: Protocol Last Admin: 08/06/17 15:29 Dose: 40 mg Ceftriaxone Sodium (Rocephin 1 Gram Ivpb) 1 gm in 100 mls @ 100 mls/hr IVPB DAILY [facility] PRN Reason: Protocol Last Admin: 08/06/17 21:37 Dose: 100 mls/hr Lactated Ringer's (Lactated Ringer's) 1,000 mls @ 150 mls/hr IV .Q6H40M [facility] Last Admin: 08/07/17 00:40 Dose: 150 mls/hr Lorazepam (Ativan) 2 mg IVP Q6H PRN; Protocol PRN Reason: Agitation Pantoprazole Sodium (Protonix Inj) 40 mg IVP DAILY [facility] - Labs Labs: 08/07/17 05:15 08/07/17 05:15 PT 12.9 SECONDS (9.4-12.5) H 08/06/17 13:37 INR 1.12 (0.93-1.08) H 08/06/17 13:37 APTT 26.1 Seconds (25.1-36.5) 08/06/17 13:37 - Constitutional Appears: No Acute Distress - Head Exam Head Exam: ATRAUMATIC, NORMAL INSPECTION, NORMOCEPHALIC - Eye Exam Eye Exam: EOMI, PERRL - ENT Exam ENT Exam: Mucous Membranes Moist - Neck Exam Neck Exam: Full ROM - Respiratory Exam Respiratory Exam: Clear to Ausculation Bilateral, NORMAL BREATHING PATTERN. absent: Wheezes - Cardiovascular Exam Cardiovascular Exam: REGULAR RHYTHM, +S1, +S2 - GI/Abdominal Exam GI & Abdominal Exam: Soft, Tenderness (LLQ, diffuse tenderness), Diminished Bowel Sounds - Extremities Exam Extremities Exam: Full ROM. absent: Pedal Edema, Tenderness - Neurological Exam Neurological Exam: Alert, Awake, CN II-XII Intact, Oriented x3 Neuro motor strength exam: Left Upper Extremity: 5, Right Upper Extremity: 5, Left Lower Extremity: 5, Right Lower Extremity: 5 - Psychiatric Exam Psychiatric exam: Normal Mood - Skin Skin Exam: Dry, Intact Assessment and Plan - Assessment and Plan (Free Text) Assessment: 56 year old female with past medical history of HTN, polysubstance abuse who [place] [facility] [place] vs. suboxone ingestion with AMS. Patient given narcan in field and evaluated in ED to have elevated lactate, leukocytosis, temp of 100F and admitted to ICU for AMS likely secondary to AMS in setting of polysubstance abuse vs. ?seizure vs. ?infectious etiology. Patient responded to IVF challenge and is stable in ICU with plans for DC to med/surg Plan: AMS - improved - Etiology: opiate use vs. sepsis vs. seizure - UDS positive for opiates - Lactate on admission 6.1 s/p fluids repeat wnl - Broad spectrum abx with vanc and zosyn - Procalcitonin normal, UA with positive leuk est - Prolactin elevated, started on keppra - ID consulted and followed up Sepsis - resolved - Elevated lactate of 6.1, leukocytosis, mild temperature of 100F, AMS on admission - IVF challenge and abx administered - Repeat lactate wnl, afebrile, mental status improved - Continue rocephin as of now - ID consulted ETOH withdrawal - Last drink yesterday - CIWA protocol - Ativan prn agitation - Monitor for 24 hours Elevated Prolactin - No reported seizure activity from handoff and patient - Head CT negative for acute findings - Neurology consult, appreciate recs - EEG f/u results Transaminitits - improved - Elevated on admission, improvement today - Etiology alcohol vs. sepsis - Ab/pelvis CT showing cholelithiasis - Continue to monitor Hx of HTN - Continue home medication of norvasc 10mg Hx of substance and alcohol use - Cessation counseling provided - UDS positive for opiates - Monitor for withdrawl symptoms Constipation - Abdominal/pelvis CT showing collection of stool - Hypoactive bowel sounds, reports absent flatus - Hx of suboxone, opiate use - Miralax and soap water enema GI/DVT ppx - Protonix - Lovenox Dispo: Patient to follow up with Dr. Rosas upon discharge Case and plan discussed with attending, Dr. Maddy Melendez PGY-1 <Sarthak Castañeda - Last Filed: 08/07/17 10:58> Objective - Vital Signs/Intake and Output Vital Signs (last 24 hours): Temp Pulse Resp BP Pulse Ox 100 F H 69 22 153/94 H 100 08/06/17 15:37 08/07/17 10:40 08/07/17 10:40 08/07/17 10:00 08/07/17 10:40 Intake and Output: 08/07/17 08/07/17 06:59 18:59 Intake Total 1850 Output Total 450 Balance 1400 - Medications Medications: Current Medications Amlodipine Besylate (Norvasc) 10 mg PO DAILY [facility] Last Admin: 08/07/17 09:21 Dose: 10 mg Aspirin (Aspirin Chewable) 81 mg PO DAILY [facility] Last Admin: 08/07/17 09:21 Dose: 81 mg Enoxaparin Sodium (Lovenox) 40 mg SC DAILY [facility] PRN Reason: Protocol Last Admin: 08/07/17 09:22 Dose: 40 mg Ceftriaxone Sodium (Rocephin 1 Gram Ivpb) 1 gm in 100 mls @ 100 mls/hr IVPB DAILY [facility] PRN Reason: Protocol Last Admin: 08/07/17 09:23 Dose: 100 mls/hr Lactated Ringer's (Lactated Ringer's) 1,000 mls @ 75 mls/hr IV .[id number] [facility] Lorazepam (Ativan) 2 mg IVP Q6H PRN; Protocol PRN Reason: Agitation Pantoprazole Sodium (Protonix Inj) 40 mg IVP DAILY [facility] Last Admin: 08/07/17 09:22 Dose: 40 mg Polyethylene Glycol (Miralax) 17 gm PO DAILY [facility] Last Admin: 08/07/17 09:21 Dose: 17 gm - Labs Labs: 08/07/17 05:15 07/01/18 05:15 PT 12.9 SECONDS (9.4-12.5) H 08/06/17 13:37 INR 1.12 (0.93-1.08) H 08/06/17 13:37 APTT 26.1 Seconds (25.1-36.5) 08/06/17 13:37 Attending/Attestation - Attestation I have personally seen and examined this patient.: Yes I have fully participated in the care of the patient.: Yes I have reviewed all pertinent clinical information, including history, physical exam and plan: Yes Notes (Text): 08/07/17 10:52 Medical record note made by the resident after discussion with my direction and input after the patient was personally seen and examined by me. I have reviewed the chart and agree that the record accurately reflects by personal performance of the history, physical exam, data review, and medical decision-making, in the course for the patient. I have also personally directed the plan of care. 56 year old female, with PMH of HTN, alcohol and drug abuse was admitted with change of mental status, found to have low grade fever 100 F , leukocytosis, elevated transaminase and lactic acidosis. The etiology is due to drug abuse, seizure ? and possible sepsis.Patient was given IV Vancomycin and Zosyn in ER, now on Rocephin. Lactic acidosis is resolved .Mental status is back to normal, LFT are coming down, cultures are negative so fat,EEG is requested. Borderline troponin with out chest pain and EKG changes, 2D Echo is requested, Opioid induced constipation,we will give stool softner, there is no no sign of withdrawal at this time. Management plan was discussed in detail with patient. Education was provided.
--- NOTE | 2017-08-07 08:12 | PN ---
DATE: 08/07/2017 SUBJECTIVE: The patient is seen and examined at bedside. She is very comfortable. She is smiling. She is alert, awake and oriented x3. She maintains thoughtful and long conversation. She is aware about her diagnosis. OBJECTIVE: VITAL SIGNS: Heart rate 75, oxygen saturation 100% on room air, blood pressure 138/79, respiratory rate 20. ENT: Head and neck atraumatic. LUNGS: Clear to auscultation bilaterally. HEART: Regular rate and rhythm. S1, S2 normal. ABDOMEN: Soft, nontender and nondistended. MUSCULOSKELETAL: No C/C/E. NEUROLOGICAL: The patient moves all extremities spontaneously. SKIN: Moist. PSYCHIATRIC: The patient is alert, awake and oriented x3. LABORATORY DATA: WBC 7.5 down from 13.4, hemoglobin 10.9, platelet count 254. Sodium 143, potassium 4.1, chloride 105, carbon dioxide 29, BUN 11, creatinine 0.7, glucose 78, AST 80, ALT 73, total bilirubin 0.9. Troponin x3 negative. ABG showed 7.41/41/102 with lactic acid 0.6 on 28% of FiO2. MEDICATIONS: Lovenox 40 mg subcu daily for DVT prophylaxis, Ativan p.r.n., Protonix, ceftriaxone. ASSESSMENT AND PLAN: This is 56-year-old lady who presented with urinary tract infection and opiate overdose. She completely woke up and is able to protect her airways. She is alert, awake and oriented x3. She is hemodynamically and respiratory marti stable. She does not have any signs of end-organ dysfunction. Her leukocytosis improved. She is not febrile. We will continue with ceftriaxone for now. However, she potentially can be switched to Bactrim, but that will be deferred to primary medical team judgment. We will continue target euvolemia, euglycemia, normothermia and oxgyen saturation more than 90%. We will continue with DVT, GI prophylaxes. The patient can be transferred to Med-Surg floor. ccm time 40 min Davion Mahan MD [facility]
[2017-08-07] MEDS: POLYETHYLENE GLYCOL 3350 17 GM/Dose PACKET PO SCH (09:21)
[2017-08-07] MEDS: Enoxaparin 40 mg Syringe SC SCH (09:22)
[2017-08-07] MEDS: cefTRIAXone 1 gm 1 GM/100 ML BAG IVPB SCH (09:23)
[2017-08-07] MEDS ORDERED: Lactated Ringer's 1,000 ML IV SCH (09:26)
--- NOTE | 2017-08-07 12:20 | CP.CCUPN ---
<Jose CarlosJavier - Last Filed: 08/07/17 12:13> CCU Subjective - Physician Review Events Since Last Encounter (Free Text): 08/07/17 08:30A Patient seen and examined at bedside. Patient had no significant events overnight. Per this morning conversation, patient believes she snorted Suboxone in the bathroom before she was found unresponsive. No acute complaints at this time CCU Objective - Vital Signs / Intake & Output Vital Signs (Last 4 hours): Vital Signs Pulse Resp BP Pulse Ox 08/07/17 10:40 69 22 100 08/07/17 10:30 77 21 100 08/07/17 10:20 67 17 100 08/07/17 10:10 69 18 100 08/07/17 10:00 70 20 153/94 H 100 08/07/17 09:50 69 18 100 08/07/17 09:40 66 20 100 08/07/17 09:30 72 32 H 100 08/07/17 09:21 149/87 08/07/17 09:20 72 18 100 08/07/17 09:10 68 22 100 08/07/17 09:00 72 18 149/87 100 08/07/17 08:50 74 20 100 08/07/17 08:40 70 22 100 08/07/17 08:30 68 19 100 08/07/17 08:20 94 H 33 H 100 Intake and Output (Last 8hrs): Intake & Output 08/06/17 08/07/17 08/07/17 22:59 06:59 14:59 Intake Total 1850 Output Total 450 Balance 1400 Weight 82.645 kg 85.275 kg Intake: IV 1850 Left Hand 1850 Output: Urine 450 Urine, Voided 450 Other: Voiding Method Bedpan # Bowel Movements 0 - Physical Exam Pupils: Positive for: Pinpoint (dilated) Cardiovascular: Positive for: Tachycardic - Medications Active Medications: Active Medications Generic Name Dose Route Start Last Admin Trade Name Freq PRN Reason Stop Dose Admin Amlodipine Besylate 10 mg 08/07/17 10:00 08/07/17 09:21 Norvasc PO 10 mg DAILY SUBHASH Administration Aspirin 81 mg 08/07/17 10:00 08/07/17 09:21 Aspirin Chewable PO 81 mg DAILY SUBHASH Administration Enoxaparin Sodium 40 mg 08/06/17 14:45 08/07/17 09:22 Lovenox SC 40 mg DAILY SUBHASH Administration Protocol Ceftriaxone Sodium 1 gm in 100 mls @ 100 mls/hr 08/06/17 20:00 08/07/17 09:23 Rocephin 1 Gram Ivpb IVPB 100 mls/hr DAILY SUBHASH Administration Protocol Lactated Ringer's 1,000 mls @ 75 mls/hr 08/07/17 09:26 Lactated Ringer's IV .[id number] SUBHASH Lorazepam 2 mg 08/06/17 15:41 Ativan IVP Q6H PRN Agitation Protocol Pantoprazole Sodium 40 mg 08/07/17 10:00 08/07/17 09:22 Protonix Inj IVP 40 mg DAILY SUBHASH Administration Polyethylene Glycol 17 gm 08/07/17 10:00 08/07/17 09:21 Miralax PO 17 gm DAILY SUBHASH Administration - Patient Studies Lab Studies: Lab Studies 08/07/17 08/07/17 08/07/17 Range/Units 05:52 05:30 05:15 WBC (4.5-11.0) 10^3/ul RBC (3.5-6.1) 10^6/uL Hgb (12.0-16.0) g/dL Hct (36.0-48.0) % MCV (80.0-105.0) fl MCH (25.0-35.0) pg MCHC (31.0-37.0) g/dl RDW (11.5-14.5) % Plt Count (120.0-450.0) 10^3/uL MPV (7.0-11.0) fl Gran % (50.0-68.0) % Lymph % (Auto) (22.0-35.0) % Mcmullen % (Auto) (1.0-6.0) % Eos % (Auto) (1.5-5.0) % Baso % (Auto) (0.0-3.0) % Gran # (1.4-6.5) Lymph # (Auto) (1.2-3.4) [place]mullen # (Auto) (0.1-0.6) Eos # (Auto) (0.0-0.7) Baso # (Auto) (0.0-2.0) K/mm3 pCO2 41 (35-45) mm/Hg pO2 102.0 H (80-100) mm/Hg HCO3 26.0 (21-28) mmol/L ABG pH 7.41 (7.35-7.45) ABG Total CO2 27.3 (22-28) mmol.L ABG O2 Saturation 99.2 H (95-98) % ABG Base Excess 1.2 (-2.0-3.0) mmol/L ABG Potassium 3.4 L (3.6-5.2) mmol/L VBG pH (7.32-7.43) VBG pCO2 (40-60) VBG HCO3 (21-28) mmol/l VBG Total CO2 (22-28) mmol.L VBG O2 Sat (Calc) (40-65) % VBG Base Excess (0.0-2.0) mmol/L VBG Potassium (3.6-5.2) mmol/L Sodium 140.0 143 (132-148) mmol/L Chloride 111.0 H 105 (98-107) mmol/L Glucose 92 (65-105) mg/dl Lactate 0.6 L (0.7-2.1) mmol/L FiO2 28.0 % Potassium 4.1 (3.6-5.0) mmol/L Carbon Dioxide 29 (21-33) mmol/L Anion Gap 13 (10-20) BUN 11 (7-21) mg/dL Creatinine 0.7 (0.7-1.2) mg/dl Est GFR ( Amer) > 60 Est GFR (Non-Af Amer) > 60 POC Glucose (mg/dL) 78 (65-110) mg/dL Random Glucose 96 (70-110) mg/dL Calcium 9.3 (8.4-10.5) mg/dL Magnesium 2.0 (1.7-2.2) mg/dL Total Bilirubin 0.9 (0.2-1.3) mg/dL AST 80 H D (14-36) U/L ALT 73 H (7-56) U/L Alkaline Phosphatase 93 (38-126) U/L Total Creatine Kinase 285 H (35-230) U/L CK-MB (CK-2) 0.7 (0.0-3.6) ng/mL CK-MB (CK-2) % Cancelled Troponin I ng/mL Total Protein 7.8 (5.8-8.3) g/dL Albumin 4.3 (3.0-4.8) g/dL Globulin 3.5 gm/dL Albumin/Globulin Ratio 1.2 (1.1-1.8) Triglycerides 67 (35-160) mg/dL Cholesterol 180 (130-200) mg/dL LDL Cholesterol Direct 86 (0-129) mg/dL HDL Cholesterol 57 (29-60) mg/dL Procalcitonin (0.19-0.49) NG/ML Prolactin (3.0-18.9) ng/mL Arterial Blood Potassium 3.4 L (3.6-5.2) mmol/L Venous Blood Potassium (3.6-5.2) mmol/L Urine Color (YELLOW) Urine Appearance (CLEAR) Urine pH (4.7-8.0) Ur Specific [place] (1.005-1.035) Urine Protein (<30 mg/dL) mg/dL Urine Glucose (UA) (NEGATIVE) mg/dL Urine Ketones (NEGATIVE) mg/dL Urine Blood (NEGATIVE) Urine Nitrate (NEGATIVE) Urine Bilirubin (NEGATIVE) Urine Urobilinogen (<1 E.U./dL) E.U./dL Ur Leukocyte Esterase (NEGATIVE) Uvaldo/uL Urine RBC (0-2) /hpf Urine WBC (0-6) /hpf Ur Epithelial Cells (0-5) /hpf Urine Bacteria (NEG) Urine Opiates Screen (NEGATIVE) Urine Methadone Screen (NEGATIVE) Ur Barbiturates Screen (NEGATIVE) Ur Phencyclidine Scrn (NEGATIVE) Ur Amphetamines Screen (NEGATIVE) U Benzodiazepines Scrn (NEGATIVE) U Oth Cocaine Metabols (NEGATIVE) U Cannabinoids Screen (NEGATIVE) 08/07/17 08/07/17 08/07/17 Range/Units 05:15 01:10 01:10 WBC 7.5 D (4.5-11.0) 10^3/ul RBC 3.60 (3.5-6.1) 10^6/uL Hgb 10.9 L (12.0-16.0) g/dL Hct 32.4 L (36.0-48.0) % MCV 90.0 (80.0-105.0) fl MCH 30.3 (25.0-35.0) pg MCHC 33.6 (31.0-37.0) g/dl RDW 13.7 (11.5-14.5) % Plt Count 254 (120.0-450.0) 10^3/uL MPV 9.2 (7.0-11.0) fl Gran % 58.9 (50.0-68.0) % Lymph % (Auto) 33.6 (22.0-35.0) % Mcmullen % (Auto) 6.6 H (1.0-6.0) % Eos % (Auto) 0.8 L (1.5-5.0) % Baso % (Auto) 0.1 (0.0-3.0) % Gran # 4.42 (1.4-6.5) Lymph # (Auto) 2.5 (1.2-3.4) [place] # (Auto) 0.5 (0.1-0.6) Eos # (Auto) 0.1 (0.0-0.7) Baso # (Auto) 0.01 (0.0-2.0) K/mm3 pCO2 (35-45) mm/Hg pO2 (80-100) mm/Hg HCO3 (21-28) mmol/L ABG pH (7.35-7.45) ABG Total CO2 (22-28) mmol.L ABG O2 Saturation (95-98) % ABG Base Excess (-2.0-3.0) mmol/L ABG Potassium (3.6-5.2) mmol/L VBG pH (7.32-7.43) VBG pCO2 (40-60) VBG HCO3 (21-28) mmol/l VBG Total CO2 (22-28) mmol.L VBG O2 Sat (Calc) (40-65) % VBG Base Excess (0.0-2.0) mmol/L VBG Potassium (3.6-5.2) mmol/L Sodium 143 (132-148) mmol/L Chloride 106 (98-107) mmol/L Glucose (65-105) mg/dl Lactate (0.7-2.1) mmol/L FiO2 % Potassium 4.4 (3.6-5.0) mmol/L Carbon Dioxide 27 (21-33) mmol/L Anion Gap 14 (10-20) BUN 12 (7-21) mg/dL Creatinine 0.8 (0.7-1.2) mg/dl Est GFR ( Amer) > 60 Est GFR (Non-Af Amer) > 60 POC Glucose (mg/dL) (65-110) mg/dL Random Glucose 95 (70-110) mg/dL Calcium 8.9 (8.4-10.5) mg/dL Magnesium 2.1 (1.7-2.2) mg/dL Total Bilirubin (0.2-1.3) mg/dL AST (14-36) U/L ALT (7-56) U/L Alkaline Phosphatase (38-126) U/L Total Creatine Kinase (35-230) U/L CK-MB (CK-2) (0.0-3.6) ng/mL CK-MB (CK-2) % Troponin I 0.04 ng/mL Total Protein (5.8-8.3) g/dL Albumin (3.0-4.8) g/dL Globulin gm/dL Albumin/Globulin Ratio (1.1-1.8) Triglycerides (35-160) mg/dL Cholesterol (130-200) mg/dL LDL Cholesterol Direct (0-129) mg/dL HDL Cholesterol (29-60) mg/dL Procalcitonin (0.19-0.49) NG/ML Prolactin (3.0-18.9) ng/mL Arterial Blood Potassium (3.6-5.2) mmol/L Venous Blood Potassium (3.6-5.2) mmol/L Urine Color (YELLOW) Urine Appearance (CLEAR) Urine pH (4.7-8.0) Ur Specific [place] (1.005-1.035) Urine Protein (<30 mg/dL) mg/dL Urine Glucose (UA) (NEGATIVE) mg/dL Urine Ketones (NEGATIVE) mg/dL Urine Blood (NEGATIVE) Urine Nitrate (NEGATIVE) Urine Bilirubin (NEGATIVE) Urine Urobilinogen (<1 E.U./dL) E.U./dL Ur Leukocyte Esterase (NEGATIVE) [place]/uL Urine RBC (0-2) /hpf Urine WBC (0-6) /hpf Ur Epithelial Cells (0-5) /hpf Urine Bacteria (NEG) Urine Opiates Screen (NEGATIVE) Urine Methadone Screen (NEGATIVE) Ur Barbiturates Screen (NEGATIVE) Ur Phencyclidine Scrn (NEGATIVE) Ur Amphetamines Screen (NEGATIVE) U Benzodiazepines Scrn (NEGATIVE) U Oth Cocaine Metabols (NEGATIVE) U Cannabinoids Screen (NEGATIVE) 08/06/17 08/06/17 08/06/17 Range/Units 23:39 21:00 21:00 WBC (4.5-11.0) 10^3/ul RBC (3.5-6.1) 10^6/uL Hgb (12.0-16.0) g/dL Hct (36.0-48.0) % MCV (80.0-105.0) fl MCH (25.0-35.0) pg MCHC (31.0-37.0) g/dl RDW (11.5-14.5) % Plt Count (120.0-450.0) 10^3/uL MPV (7.0-11.0) fl Gran % (50.0-68.0) % Lymph % (Auto) (22.0-35.0) % [place] % (Auto) (1.0-6.0) % Eos % (Auto) (1.5-5.0) % Baso % (Auto) (0.0-3.0) % Gran # (1.4-6.5) Lymph # (Auto) (1.2-3.4) [place] # (Auto) (0.1-0.6) Eos # (Auto) (0.0-0.7) Baso # (Auto) (0.0-2.0) K/mm3 pCO2 (35-45) mm/Hg pO2 22 L (80-100) mm/Hg HCO3 (21-28) mmol/L ABG pH (7.35-7.45) ABG Total CO2 (22-28) mmol.L ABG O2 Saturation (95-98) % ABG Base Excess (-2.0-3.0) mmol/L ABG Potassium (3.6-5.2) mmol/L VBG pH 7.37 (7.32-7.43) VBG pCO2 51.0 (40-60) VBG HCO3 29.5 H (21-28) mmol/l VBG Total CO2 31.1 H (22-28) mmol.L VBG O2 Sat (Calc) 46.7 (40-65) % VBG Base Excess 3.1 H (0.0-2.0) mmol/L VBG Potassium 4.3 (3.6-5.2) mmol/L Sodium 141.0 (132-148) mmol/L Chloride 109.0 H (98-107) mmol/L Glucose 103 (65-105) mg/dl Lactate 0.7 (0.7-2.1) mmol/L FiO2 21.0 % Potassium (3.6-5.0) mmol/L Carbon Dioxide (21-33) mmol/L Anion Gap (10-20) BUN (7-21) mg/dL Creatinine (0.7-1.2) mg/dl Est GFR ( Amer) Est GFR (Non-Af Amer) POC Glucose (mg/dL) 85 (65-110) mg/dL Random Glucose (70-110) mg/dL Calcium (8.4-10.5) mg/dL Magnesium (1.7-2.2) mg/dL Total Bilirubin (0.2-1.3) mg/dL AST (14-36) U/L ALT (7-56) U/L Alkaline Phosphatase (38-126) U/L Total Creatine Kinase (35-230) U/L CK-MB (CK-2) (0.0-3.6) ng/mL CK-MB (CK-2) % Troponin I 0.04 D ng/mL Total Protein (5.8-8.3) g/dL Albumin (3.0-4.8) g/dL Globulin gm/dL Albumin/Globulin Ratio (1.1-1.8) Triglycerides (35-160) mg/dL Cholesterol (130-200) mg/dL LDL Cholesterol Direct (0-129) mg/dL HDL Cholesterol (29-60) mg/dL Procalcitonin (0.19-0.49) NG/ML Prolactin (3.0-18.9) ng/mL Arterial Blood Potassium (3.6-5.2) mmol/L Venous Blood Potassium 4.3 (3.6-5.2) mmol/L Urine Color (YELLOW) Urine Appearance (CLEAR) Urine pH (4.7-8.0) Ur Specific [place] (1.005-1.035) Urine Protein (<30 mg/dL) mg/dL Urine Glucose (UA) (NEGATIVE) mg/dL Urine Ketones (NEGATIVE) mg/dL Urine Blood (NEGATIVE) Urine Nitrate (NEGATIVE) Urine Bilirubin (NEGATIVE) Urine Urobilinogen (<1 E.U./dL) E.U./dL Ur Leukocyte Esterase (NEGATIVE) [place]/uL Urine RBC (0-2) /hpf Urine WBC (0-6) /hpf Ur Epithelial Cells (0-5) /hpf Urine Bacteria (NEG) Urine Opiates Screen (NEGATIVE) Urine Methadone Screen (NEGATIVE) Ur Barbiturates Screen (NEGATIVE) Ur Phencyclidine Scrn (NEGATIVE) Ur Amphetamines Screen (NEGATIVE) U Benzodiazepines Scrn (NEGATIVE) U Oth Cocaine Metabols (NEGATIVE) U Cannabinoids Screen (NEGATIVE) 08/06/17 08/06/17 08/06/17 Range/Units 18:39 17:40 16:30 WBC (4.5-11.0) 10^3/ul RBC (3.5-6.1) 10^6/uL Hgb (12.0-16.0) g/dL Hct (36.0-48.0) % MCV (80.0-105.0) fl MCH (25.0-35.0) pg MCHC (31.0-37.0) g/dl RDW (11.5-14.5) % Plt Count (120.0-450.0) 10^3/uL MPV (7.0-11.0) fl Gran % (50.0-68.0) % Lymph % (Auto) (22.0-35.0) % [place] % (Auto) (1.0-6.0) % Eos % (Auto) (1.5-5.0) % Baso % (Auto) (0.0-3.0) % Gran # (1.4-6.5) Lymph # (Auto) (1.2-3.4) [place] # (Auto) (0.1-0.6) Eos # (Auto) (0.0-0.7) Baso # (Auto) (0.0-2.0) K/mm3 pCO2 35 (35-45) mm/Hg pO2 66.0 L 25 L (80-100) mm/Hg HCO3 22.7 (21-28) mmol/L ABG pH 7.42 (7.35-7.45) ABG Total CO2 23.8 (22-28) mmol.L ABG O2 Saturation 96.9 (95-98) % ABG Base Excess -1.3 (-2.0-3.0) mmol/L ABG Potassium 3.0 L (3.6-5.2) mmol/L VBG pH 7.34 (7.32-7.43) VBG pCO2 51.0 (40-60) VBG HCO3 27.5 (21-28) mmol/l VBG Total CO2 29.1 H (22-28) mmol.L VBG O2 Sat (Calc) 57.6 (40-65) % VBG Base Excess 0.9 (0.0-2.0) mmol/L VBG Potassium 4.0 (3.6-5.2) mmol/L Sodium 144.0 141.0 (132-148) mmol/L Chloride 115.0 H 107.0 (98-107) mmol/L Glucose 84 112 H (65-105) mg/dl Lactate 0.6 L 2.0 (0.7-2.1) mmol/L FiO2 21.0 21.0 % Potassium (3.6-5.0) mmol/L Carbon Dioxide (21-33) mmol/L Anion Gap (10-20) BUN (7-21) mg/dL Creatinine (0.7-1.2) mg/dl Est GFR ( Amer) Est GFR (Non-Af Amer) POC Glucose (mg/dL) (65-110) mg/dL Random Glucose (70-110) mg/dL Calcium (8.4-10.5) mg/dL Magnesium (1.7-2.2) mg/dL Total Bilirubin (0.2-1.3) mg/dL AST (14-36) U/L ALT (7-56) U/L Alkaline Phosphatase (38-126) U/L Total Creatine Kinase (35-230) U/L CK-MB (CK-2) (0.0-3.6) ng/mL CK-MB (CK-2) % Troponin I ng/mL Total Protein (5.8-8.3) g/dL Albumin (3.0-4.8) g/dL Globulin gm/dL Albumin/Globulin Ratio (1.1-1.8) Triglycerides (35-160) mg/dL Cholesterol (130-200) mg/dL LDL Cholesterol Direct (0-129) mg/dL HDL Cholesterol (29-60) mg/dL Procalcitonin (0.19-0.49) NG/ML Prolactin 38.5 H (3.0-18.9) ng/mL Arterial Blood Potassium 3.0 L (3.6-5.2) mmol/L Venous Blood Potassium 4.0 (3.6-5.2) mmol/L Urine Color (YELLOW) Urine Appearance (CLEAR) Urine pH (4.7-8.0) Ur Specific [place] (1.005-1.035) Urine Protein (<30 mg/dL) mg/dL Urine Glucose (UA) (NEGATIVE) mg/dL Urine Ketones (NEGATIVE) mg/dL Urine Blood (NEGATIVE) Urine Nitrate (NEGATIVE) Urine Bilirubin (NEGATIVE) Urine Urobilinogen (<1 E.U./dL) E.U./dL Ur Leukocyte Esterase (NEGATIVE) [place]/uL Urine RBC (0-2) /hpf Urine WBC (0-6) /hpf Ur Epithelial Cells (0-5) /hpf Urine Bacteria (NEG) Urine Opiates Screen (NEGATIVE) Urine Methadone Screen (NEGATIVE) Ur Barbiturates Screen (NEGATIVE) Ur Phencyclidine Scrn (NEGATIVE) Ur Amphetamines Screen (NEGATIVE) U Benzodiazepines Scrn (NEGATIVE) U Oth Cocaine Metabols (NEGATIVE) U Cannabinoids Screen (NEGATIVE) 08/06/17 08/06/17 08/06/17 Range/Units 16:30 15:46 15:15 WBC (4.5-11.0) 10^3/ul RBC (3.5-6.1) 10^6/uL Hgb (12.0-16.0) g/dL Hct (36.0-48.0) % MCV (80.0-105.0) fl MCH (25.0-35.0) pg MCHC (31.0-37.0) g/dl RDW (11.5-14.5) % Plt Count (120.0-450.0) 10^3/uL MPV (7.0-11.0) fl Gran % (50.0-68.0) % Lymph % (Auto) (22.0-35.0) % [place] % (Auto) (1.0-6.0) % Eos % (Auto) (1.5-5.0) % Baso % (Auto) (0.0-3.0) % Gran # (1.4-6.5) Lymph # (Auto) (1.2-3.4) [place] # (Auto) (0.1-0.6) Eos # (Auto) (0.0-0.7) Baso # (Auto) (0.0-2.0) K/mm3 pCO2 41 (35-45) mm/Hg pO2 72.0 L (80-100) mm/Hg HCO3 24.8 (21-28) mmol/L ABG pH 7.39 (7.35-7.45) ABG Total CO2 26.1 (22-28) mmol.L ABG O2 Saturation 97.9 (95-98) % ABG Base Excess -0.2 (-2.0-3.0) mmol/L ABG Potassium 3.2 L (3.6-5.2) mmol/L VBG pH (7.32-7.43) VBG pCO2 (40-60) VBG HCO3 (21-28) mmol/l VBG Total CO2 (22-28) mmol.L VBG O2 Sat (Calc) (40-65) % VBG Base Excess (0.0-2.0) mmol/L VBG Potassium (3.6-5.2) mmol/L Sodium 141.0 (132-148) mmol/L Chloride 110.0 H (98-107) mmol/L Glucose 141 H (65-105) mg/dl Lactate 1.5 (0.7-2.1) mmol/L FiO2 21.0 % Potassium (3.6-5.0) mmol/L Carbon Dioxide (21-33) mmol/L Anion Gap (10-20) BUN (7-21) mg/dL Creatinine (0.7-1.2) mg/dl Est GFR ( Amer) Est GFR (Non-Af Amer) POC Glucose (mg/dL) (65-110) mg/dL Random Glucose (70-110) mg/dL Calcium (8.4-10.5) mg/dL Magnesium (1.7-2.2) mg/dL Total Bilirubin (0.2-1.3) mg/dL AST (14-36) U/L ALT (7-56) U/L Alkaline Phosphatase (38-126) U/L Total Creatine Kinase (35-230) U/L CK-MB (CK-2) (0.0-3.6) ng/mL CK-MB (CK-2) % Troponin I ng/mL Total Protein (5.8-8.3) g/dL Albumin (3.0-4.8) g/dL Globulin gm/dL Albumin/Globulin Ratio (1.1-1.8) Triglycerides (35-160) mg/dL Cholesterol (130-200) mg/dL LDL Cholesterol Direct (0-129) mg/dL HDL Cholesterol (29-60) mg/dL Procalcitonin 0.08 L (0.19-0.49) NG/ML Prolactin (3.0-18.9) ng/mL Arterial Blood Potassium 3.2 L (3.6-5.2) mmol/L Venous Blood Potassium (3.6-5.2) mmol/L Urine Color (YELLOW) Urine Appearance (CLEAR) Urine pH (4.7-8.0) Ur Specific [place] (1.005-1.035) Urine Protein (<30 mg/dL) mg/dL Urine Glucose (UA) (NEGATIVE) mg/dL Urine Ketones (NEGATIVE) mg/dL Urine Blood (NEGATIVE) Urine Nitrate (NEGATIVE) Urine Bilirubin (NEGATIVE) Urine Urobilinogen (<1 E.U./dL) E.U./dL Ur Leukocyte Esterase (NEGATIVE) [place]/uL Urine RBC (0-2) /hpf Urine WBC (0-6) /hpf Ur Epithelial Cells (0-5) /hpf Urine Bacteria (NEG) Urine Opiates Screen Positive H (NEGATIVE) Urine Methadone Screen Negative (NEGATIVE) Ur Barbiturates Screen Negative (NEGATIVE) Ur Phencyclidine Scrn Negative (NEGATIVE) Ur Amphetamines Screen Negative (NEGATIVE) U Benzodiazepines Scrn Negative (NEGATIVE) U Oth Cocaine Metabols Negative (NEGATIVE) U Cannabinoids Screen Negative (NEGATIVE) 08/06/17 Range/Units 15:15 WBC (4.5-11.0) 10^3/ul RBC (3.5-6.1) 10^6/uL Hgb (12.0-16.0) g/dL Hct (36.0-48.0) % MCV (80.0-105.0) fl MCH (25.0-35.0) pg MCHC (31.0-37.0) g/dl RDW (11.5-14.5) % Plt Count (120.0-450.0) 10^3/uL MPV (7.0-11.0) fl Gran % (50.0-68.0) % Lymph % (Auto) (22.0-35.0) % [place] % (Auto) (1.0-6.0) % Eos % (Auto) (1.5-5.0) % Baso % (Auto) (0.0-3.0) % Gran # (1.4-6.5) Lymph # (Auto) (1.2-3.4) [place] # (Auto) (0.1-0.6) Eos # (Auto) (0.0-0.7) Baso # (Auto) (0.0-2.0) K/mm3 pCO2 (35-45) mm/Hg pO2 (80-100) mm/Hg HCO3 (21-28) mmol/L ABG pH (7.35-7.45) ABG Total CO2 (22-28) mmol.L ABG O2 Saturation (95-98) % ABG Base Excess (-2.0-3.0) mmol/L ABG Potassium (3.6-5.2) mmol/L VBG pH (7.32-7.43) VBG pCO2 (40-60) VBG HCO3 (21-28) mmol/l VBG Total CO2 (22-28) mmol.L VBG O2 Sat (Calc) (40-65) % VBG Base Excess (0.0-2.0) mmol/L VBG Potassium (3.6-5.2) mmol/L Sodium (132-148) mmol/L Chloride (98-107) mmol/L Glucose (65-105) mg/dl Lactate (0.7-2.1) mmol/L FiO2 % Potassium (3.6-5.0) mmol/L Carbon Dioxide (21-33) mmol/L Anion Gap (10-20) BUN (7-21) mg/dL Creatinine (0.7-1.2) mg/dl Est GFR ( Amer) Est GFR (Non-Af Amer) POC Glucose (mg/dL) (65-110) mg/dL Random Glucose (70-110) mg/dL Calcium (8.4-10.5) mg/dL Magnesium (1.7-2.2) mg/dL Total Bilirubin (0.2-1.3) mg/dL AST (14-36) U/L ALT (7-56) U/L Alkaline Phosphatase (38-126) U/L Total Creatine Kinase (35-230) U/L CK-MB (CK-2) (0.0-3.6) ng/mL CK-MB (CK-2) % Troponin I ng/mL Total Protein (5.8-8.3) g/dL Albumin (3.0-4.8) g/dL Globulin gm/dL Albumin/Globulin Ratio (1.1-1.8) Triglycerides (35-160) mg/dL Cholesterol (130-200) mg/dL LDL Cholesterol Direct (0-129) mg/dL HDL Cholesterol (29-60) mg/dL Procalcitonin (0.19-0.49) NG/ML Prolactin (3.0-18.9) ng/mL Arterial Blood Potassium (3.6-5.2) mmol/L Venous Blood Potassium (3.6-5.2) mmol/L Urine Color Yellow (YELLOW) Urine Appearance Sl cloudy (CLEAR) Urine pH 6.0 (4.7-8.0) Ur Specific [place] <= 1.005 (1.005-1.035) Urine Protein Negative (<30 mg/dL) mg/dL Urine Glucose (UA) 100 H (NEGATIVE) mg/dL Urine Ketones Negative (NEGATIVE) mg/dL Urine Blood Trace-lysed H (NEGATIVE) Urine Nitrate Negative (NEGATIVE) Urine Bilirubin Negative (NEGATIVE) Urine Urobilinogen 0.2 (<1 E.U./dL) E.U./dL Ur Leukocyte Esterase Small H (NEGATIVE) Uvaldo/uL Urine RBC 1 - 3 (0-2) /hpf Urine WBC 10 - 15 (0-6) /hpf Ur Epithelial Cells 4 - 5 (0-5) /hpf Urine Bacteria Mod (NEG) Urine Opiates Screen (NEGATIVE) Urine Methadone Screen (NEGATIVE) Ur Barbiturates Screen (NEGATIVE) Ur Phencyclidine Scrn (NEGATIVE) Ur Amphetamines Screen (NEGATIVE) U Benzodiazepines Scrn (NEGATIVE) U Oth Cocaine Metabols (NEGATIVE) U Cannabinoids Screen (NEGATIVE) Laboratory Results - last 24 hr 08/06/17 08/06/17 08/06/17 15:15 15:15 15:46 WBC RBC Hgb Hct MCV MCH MCHC RDW Plt Count MPV Gran % Lymph % (Auto) Mcmullen % (Auto) Eos % (Auto) Baso % (Auto) Gran # Lymph # (Auto) [place] # (Auto) Eos # (Auto) Baso # (Auto) pCO2 41 pO2 72.0 L HCO3 24.8 ABG pH 7.39 ABG Total CO2 26.1 ABG O2 Saturation 97.9 ABG Base Excess -0.2 ABG Potassium 3.2 L VBG pH VBG pCO2 VBG HCO3 VBG Total CO2 VBG O2 Sat (Calc) VBG Base Excess VBG Potassium Sodium 141.0 Chloride 110.0 H Glucose 141 H Lactate 1.5 FiO2 21.0 Potassium Carbon Dioxide Anion Gap BUN Creatinine Est GFR ( Amer) Est GFR (Non-Af Amer) POC Glucose (mg/dL) Random Glucose Calcium Magnesium Total Bilirubin AST ALT Alkaline Phosphatase Total Creatine Kinase CK-MB (CK-2) CK-MB (CK-2) % Troponin I Total Protein Albumin Globulin Albumin/Globulin Ratio Triglycerides Cholesterol LDL Cholesterol Direct HDL Cholesterol Procalcitonin Prolactin Arterial Blood Potassium 3.2 L Venous Blood Potassium Urine Color Yellow Urine Appearance Sl cloudy Urine pH 6.0 Ur Specific [place] <= 1.005 Urine Protein Negative Urine Glucose (UA) 100 H Urine Ketones Negative Urine Blood Trace-lysed H Urine Nitrate Negative Urine Bilirubin Negative Urine Urobilinogen 0.2 Ur Leukocyte Esterase Small H Urine RBC 1 - 3 Urine WBC 10 - 15 Ur Epithelial Cells 4 - 5 Urine Bacteria Mod Urine Opiates Screen Positive H Urine Methadone Screen Negative Ur Barbiturates Screen Negative Ur Phencyclidine Scrn Negative Ur Amphetamines Screen Negative U Benzodiazepines Scrn Negative U Oth Cocaine Metabols Negative U Cannabinoids Screen Negative 08/06/17 08/06/17 08/06/17 16:30 16:30 17:40 WBC RBC Hgb Hct MCV MCH MCHC RDW Plt Count MPV Gran % Lymph % (Auto) [place] % (Auto) Eos % (Auto) Baso % (Auto) Gran # Lymph # (Auto) [place]ullen # (Auto) Eos # (Auto) Baso # (Auto) pCO2 pO2 25 L HCO3 ABG pH ABG Total CO2 ABG O2 Saturation ABG Base Excess ABG Potassium VBG pH 7.34 VBG pCO2 51.0 VBG HCO3 27.5 VBG Total CO2 29.1 H VBG O2 Sat (Calc) 57.6 VBG Base Excess 0.9 VBG Potassium 4.0 Sodium 141.0 Chloride 107.0 Glucose 112 H Lactate 2.0 FiO2 21.0 Potassium Carbon Dioxide Anion Gap BUN Creatinine Est GFR ( Amer) Est GFR (Non-Af Amer) POC Glucose (mg/dL) Random Glucose Calcium Magnesium Total Bilirubin AST ALT Alkaline Phosphatase Total Creatine Kinase CK-MB (CK-2) CK-MB (CK-2) % Troponin I Total Protein Albumin Globulin Albumin/Globulin Ratio Triglycerides Cholesterol LDL Cholesterol Direct HDL Cholesterol Procalcitonin 0.08 L Prolactin 38.5 H Arterial Blood Potassium Venous Blood Potassium 4.0 Urine Color Urine Appearance Urine pH Ur Specific [place] Urine Protein Urine Glucose (UA) Urine Ketones Urine Blood Urine Nitrate Urine Bilirubin Urine Urobilinogen Ur Leukocyte Esterase Urine RBC Urine WBC Ur Epithelial Cells Urine Bacteria Urine Opiates Screen Urine Methadone Screen Ur Barbiturates Screen Ur Phencyclidine Scrn Ur Amphetamines Screen U Benzodiazepines Scrn U Oth Cocaine Metabols U Cannabinoids Screen 08/06/17 08/06/17 08/06/17 18:39 21:00 21:00 WBC RBC Hgb Hct MCV MCH MCHC RDW Plt Count MPV Gran % Lymph % (Auto) [place] % (Auto) Eos % (Auto) Baso % (Auto) Gran # Lymph # (Auto) [place] # (Auto) Eos # (Auto) Baso # (Auto) pCO2 35 pO2 66.0 L 22 L HCO3 22.7 ABG pH 7.42 ABG Total CO2 23.8 ABG O2 Saturation 96.9 ABG Base Excess -1.3 ABG Potassium 3.0 L VBG pH 7.37 VBG pCO2 51.0 VBG HCO3 29.5 H VBG Total CO2 31.1 H VBG O2 Sat (Calc) 46.7 VBG Base Excess 3.1 H VBG Potassium 4.3 Sodium 144.0 141.0 Chloride 115.0 H 109.0 H Glucose 84 103 Lactate 0.6 L 0.7 FiO2 21.0 21.0 Potassium Carbon Dioxide Anion Gap BUN Creatinine Est GFR ( Amer) Est GFR (Non-Af Amer) POC Glucose (mg/dL) Random Glucose Calcium Magnesium Total Bilirubin AST ALT Alkaline Phosphatase Total Creatine Kinase CK-MB (CK-2) CK-MB (CK-2) % Troponin I 0.04 D Total Protein Albumin Globulin Albumin/Globulin Ratio Triglycerides Cholesterol LDL Cholesterol Direct HDL Cholesterol Procalcitonin Prolactin Arterial Blood Potassium 3.0 L Venous Blood Potassium 4.3 Urine Color Urine Appearance Urine pH Ur Specific [place] Urine Protein Urine Glucose (UA) Urine Ketones Urine Blood Urine Nitrate Urine Bilirubin Urine Urobilinogen Ur Leukocyte Esterase Urine RBC Urine WBC Ur Epithelial Cells Urine Bacteria Urine Opiates Screen Urine Methadone Screen Ur Barbiturates Screen Ur Phencyclidine Scrn Ur Amphetamines Screen U Benzodiazepines Scrn U Oth Cocaine Metabols U Cannabinoids Screen 08/06/17 08/07/17 08/07/17 23:39 01:10 01:10 WBC RBC Hgb Hct MCV MCH MCHC RDW Plt Count MPV Gran % Lymph % (Auto) [place] % (Auto) Eos % (Auto) Baso % (Auto) Gran # Lymph # (Auto) [place] # (Auto) Eos # (Auto) Baso # (Auto) pCO2 pO2 HCO3 ABG pH ABG Total CO2 ABG O2 Saturation ABG Base Excess ABG Potassium VBG pH VBG pCO2 VBG HCO3 VBG Total CO2 VBG O2 Sat (Calc) VBG Base Excess VBG Potassium Sodium 143 Chloride 106 Glucose Lactate FiO2 Potassium 4.4 Carbon Dioxide 27 Anion Gap 14 BUN 12 Creatinine 0.8 Est GFR ( Amer) > 60 Est GFR (Non-Af Amer) > 60 POC Glucose (mg/dL) 85 Random Glucose 95 Calcium 8.9 Magnesium 2.1 Total Bilirubin AST ALT Alkaline Phosphatase Total Creatine Kinase CK-MB (CK-2) CK-MB (CK-2) % Troponin I 0.04 Total Protein Albumin Globulin Albumin/Globulin Ratio Triglycerides Cholesterol LDL Cholesterol Direct HDL Cholesterol Procalcitonin Prolactin Arterial Blood Potassium Venous Blood Potassium Urine Color Urine Appearance Urine pH Ur Specific [place] Urine Protein Urine Glucose (UA) Urine Ketones Urine Blood Urine Nitrate Urine Bilirubin Urine Urobilinogen Ur Leukocyte Esterase Urine RBC Urine WBC Ur Epithelial Cells Urine Bacteria Urine Opiates Screen Urine Methadone Screen Ur Barbiturates Screen Ur Phencyclidine Scrn Ur Amphetamines Screen U Benzodiazepines Scrn U Oth Cocaine Metabols U Cannabinoids Screen 08/07/17 08/07/17 08/07/17 05:15 05:15 05:30 WBC 7.5 D RBC 3.60 Hgb 10.9 L Hct 32.4 L MCV 90.0 MCH 30.3 MCHC 33.6 RDW 13.7 Plt Count 254 MPV 9.2 Gran % 58.9 Lymph % (Auto) 33.6 Mcmullen % (Auto) 6.6 H Eos % (Auto) 0.8 L Baso % (Auto) 0.1 Gran # 4.42 Lymph # (Auto) 2.5 Mcmullen # (Auto) 0.5 Eos # (Auto) 0.1 Baso # (Auto) 0.01 pCO2 41 pO2 102.0 H HCO3 26.0 ABG pH 7.41 ABG Total CO2 27.3 ABG O2 Saturation 99.2 H ABG Base Excess 1.2 ABG Potassium 3.4 L VBG pH VBG pCO2 VBG HCO3 VBG Total CO2 VBG O2 Sat (Calc) VBG Base Excess VBG Potassium Sodium 143 140.0 Chloride 105 111.0 H Glucose 92 Lactate 0.6 L FiO2 28.0 Potassium 4.1 Carbon Dioxide 29 Anion Gap 13 BUN 11 Creatinine 0.7 Est GFR ( Amer) > 60 Est GFR (Non-Af Amer) > 60 POC Glucose (mg/dL) Random Glucose 96 Calcium 9.3 Magnesium 2.0 Total Bilirubin 0.9 AST 80 H D ALT 73 H Alkaline Phosphatase 93 Total Creatine Kinase 285 H CK-MB (CK-2) 0.7 CK-MB (CK-2) % Cancelled Troponin I Total Protein 7.8 Albumin 4.3 Globulin 3.5 Albumin/Globulin Ratio 1.2 Triglycerides 67 Cholesterol 180 LDL Cholesterol Direct 86 HDL Cholesterol 57 Procalcitonin Prolactin Arterial Blood Potassium 3.4 L Venous Blood Potassium Urine Color Urine Appearance Urine pH Ur Specific [place] Urine Protein Urine Glucose (UA) Urine Ketones Urine Blood Urine Nitrate Urine Bilirubin Urine Urobilinogen Ur Leukocyte Esterase Urine RBC Urine WBC Ur Epithelial Cells Urine Bacteria Urine Opiates Screen Urine Methadone Screen Ur Barbiturates Screen Ur Phencyclidine Scrn Ur Amphetamines Screen U Benzodiazepines Scrn U Oth Cocaine Metabols U Cannabinoids Screen 08/07/17 05:52 WBC RBC Hgb Hct MCV MCH MCHC RDW Plt Count MPV Gran % Lymph % (Auto) Mcmullen % (Auto) Eos % (Auto) Baso % (Auto) Gran # Lymph # (Auto) [place]mullen # (Auto) Eos # (Auto) Baso # (Auto) pCO2 pO2 HCO3 ABG pH ABG Total CO2 ABG O2 Saturation ABG Base Excess ABG Potassium VBG pH VBG pCO2 VBG HCO3 VBG Total CO2 VBG O2 Sat (Calc) VBG Base Excess VBG Potassium Sodium Chloride Glucose Lactate FiO2 Potassium Carbon Dioxide Anion Gap BUN Creatinine Est GFR ( Amer) Est GFR (Non-Af Amer) POC Glucose (mg/dL) 78 Random Glucose Calcium Magnesium Total Bilirubin AST ALT Alkaline Phosphatase Total Creatine Kinase CK-MB (CK-2) CK-MB (CK-2) % Troponin I Total Protein Albumin Globulin Albumin/Globulin Ratio Triglycerides Cholesterol LDL Cholesterol Direct HDL Cholesterol Procalcitonin Prolactin Arterial Blood Potassium Venous Blood Potassium Urine Color Urine Appearance Urine pH Ur Specific [place] Urine Protein Urine Glucose (UA) Urine Ketones Urine Blood Urine Nitrate Urine Bilirubin Urine Urobilinogen Ur Leukocyte Esterase Urine RBC Urine WBC Ur Epithelial Cells Urine Bacteria Urine Opiates Screen Urine Methadone Screen Ur Barbiturates Screen Ur Phencyclidine Scrn Ur Amphetamines Screen U Benzodiazepines Scrn U Oth Cocaine Metabols U Cannabinoids Screen Fingerstick Blood Sugar Results: 190 Critical Care Progress Note - Nutrition Nutrition: Nutrition Category Date Time Status Liquid Diet [DIET] Diets 08/07/17 Breakfast Ordered Assessment/Plan - Assessment and Plan (Free Text) Assessment: 56 female initially under ICU management for concern of septic shock. Later determined to be opioid overdose, most likely suboxone. Hx IVDA Hx HTN Plan Neurologic: - Neurochecks, aspiration checks, CIWA, fall precautions - Maintain normothermia - EEG f/u; prolactin was elevated - Cardiology: - Maintain MAP > 65 - Monitor EKG for signs of ischemia and QT interval prolongation Pulmonology: - Keep sats > 90% - Maintain airway, monitor for signs of losing airway protection Gastrointestinal: - PPX with protonix - Liquid diet Genitourinary: - Maintain euvolemia, replete electrolytes PRN Heme: - DVT PPX with lovenox ID: - Rocephin for LE on UA - Pending septic work up Endo: - Maintain euglycemia Dispo: At this time, patient stable for transfer out of ICU. Please re- consult as necessary <Davion Mahan - Last Filed: 08/07/17 13:42> CCU Objective - Vital Signs / Intake & Output Vital Signs (Last 4 hours): Vital Signs Pulse Resp BP Pulse Ox 08/07/17 12:30 72 16 100 08/07/17 12:20 69 19 100 08/07/17 12:10 68 23 100 08/07/17 12:00 71 21 155/82 H 100 08/07/17 11:50 69 20 100 08/07/17 11:40 69 16 100 08/07/17 11:30 69 19 100 08/07/17 11:20 73 22 97 08/07/17 11:10 72 14 100 08/07/17 11:00 72 21 146/65 100 08/07/17 10:50 84 21 95 08/07/17 10:40 69 22 100 08/07/17 10:30 77 21 100 08/07/17 10:20 67 17 100 08/07/17 10:10 69 18 100 08/07/17 10:00 70 20 153/94 H 100 08/07/17 09:50 69 18 100 Intake and Output (Last 8hrs): Intake & Output 08/06/17 08/07/17 08/07/17 22:59 06:59 14:59 Intake Total 1850 Output Total 450 Balance 1400 Weight 182 lb 3.2 oz 188 lb Intake: IV 1850 Left Hand 1850 Output: Urine 450 Urine, Voided 450 Other: Voiding Method Bedpan # Bowel Movements 0 - Medications Active Medications: Active Medications Generic Name Dose Route Start Last Admin Trade Name Freq PRN Reason Stop Dose Admin Amlodipine Besylate 10 mg 08/07/17 10:00 08/07/17 09:21 Norvasc PO 10 mg DAILY SUBHASH Administration Aspirin 81 mg 08/07/17 10:00 08/07/17 09:21 Aspirin Chewable PO 81 mg DAILY SUBHASH Administration Enoxaparin Sodium 40 mg 08/06/17 14:45 08/07/17 09:22 Lovenox SC 40 mg DAILY SUBHASH Administration Protocol Ceftriaxone Sodium 1 gm in 100 mls @ 100 mls/hr 08/06/17 20:00 08/07/17 09:23 Rocephin 1 Gram Ivpb IVPB 100 mls/hr DAILY SUBHASH Administration Protocol Lactated Ringer's 1,000 mls @ 75 mls/hr 08/07/17 09:26 Lactated Ringer's IV .[id number] SUBHASH Lorazepam 2 mg 08/06/17 15:41 Ativan IVP Q6H PRN Agitation Protocol Pantoprazole Sodium 40 mg 08/07/17 10:00 08/07/17 09:22 Protonix Inj IVP 40 mg DAILY SUBHASH Administration Polyethylene Glycol 17 gm 08/07/17 10:00 08/07/17 09:21 Miralax PO 17 gm DAILY SUBHASH Administration - Patient Studies Lab Studies: Lab Studies 08/07/17 08/07/17 08/07/17 Range/Units 05:52 05:30 05:15 WBC (4.5-11.0) 10^3/ul RBC (3.5-6.1) 10^6/uL Hgb (12.0-16.0) g/dL Hct (36.0-48.0) % MCV (80.0-105.0) fl MCH (25.0-35.0) pg MCHC (31.0-37.0) g/dl RDW (11.5-14.5) % Plt Count (120.0-450.0) 10^3/uL MPV (7.0-11.0) fl Gran % (50.0-68.0) % Lymph % (Auto) (22.0-35.0) % [place]mullen % (Auto) (1.0-6.0) % Eos % (Auto) (1.5-5.0) % Baso % (Auto) (0.0-3.0) % Gran # (1.4-6.5) Lymph # (Auto) (1.2-3.4) [place]mullen # (Auto) (0.1-0.6) Eos # (Auto) (0.0-0.7) Baso # (Auto) (0.0-2.0) K/mm3 pCO2 41 (35-45) mm/Hg pO2 102.0 H (80-100) mm/Hg HCO3 26.0 (21-28) mmol/L ABG pH 7.41 (7.35-7.45) ABG Total CO2 27.3 (22-28) mmol.L ABG O2 Saturation 99.2 H (95-98) % ABG Base Excess 1.2 (-2.0-3.0) mmol/L ABG Potassium 3.4 L (3.6-5.2) mmol/L VBG pH (7.32-7.43) VBG pCO2 (40-60) VBG HCO3 (21-28) mmol/l VBG Total CO2 (22-28) mmol.L VBG O2 Sat (Calc) (40-65) % VBG Base Excess (0.0-2.0) mmol/L VBG Potassium (3.6-5.2) mmol/L Sodium 140.0 143 (132-148) mmol/L Chloride 111.0 H 105 (98-107) mmol/L Glucose 92 (65-105) mg/dl Lactate 0.6 L (0.7-2.1) mmol/L FiO2 28.0 % Potassium 4.1 (3.6-5.0) mmol/L Carbon Dioxide 29 (21-33) mmol/L Anion Gap 13 (10-20) BUN 11 (7-21) mg/dL Creatinine 0.7 (0.7-1.2) mg/dl Est GFR ( Amer) > 60 Est GFR (Non-Af Amer) > 60 POC Glucose (mg/dL) 78 (65-110) mg/dL Random Glucose 96 (70-110) mg/dL Calcium 9.3 (8.4-10.5) mg/dL Magnesium 2.0 (1.7-2.2) mg/dL Total Bilirubin 0.9 (0.2-1.3) mg/dL AST 80 H D (14-36) U/L ALT 73 H (7-56) U/L Alkaline Phosphatase 93 (38-126) U/L Total Creatine Kinase 285 H (35-230) U/L CK-MB (CK-2) 0.7 (0.0-3.6) ng/mL CK-MB (CK-2) % Cancelled Troponin I ng/mL Total Protein 7.8 (5.8-8.3) g/dL Albumin 4.3 (3.0-4.8) g/dL Globulin 3.5 gm/dL Albumin/Globulin Ratio 1.2 (1.1-1.8) Triglycerides 67 (35-160) mg/dL Cholesterol 180 (130-200) mg/dL LDL Cholesterol Direct 86 (0-129) mg/dL HDL Cholesterol 57 (29-60) mg/dL Procalcitonin (0.19-0.49) NG/ML Prolactin (3.0-18.9) ng/mL Arterial Blood Potassium 3.4 L (3.6-5.2) mmol/L Venous Blood Potassium (3.6-5.2) mmol/L Urine Color (YELLOW) Urine Appearance (CLEAR) Urine pH (4.7-8.0) Ur Specific [place] (1.005-1.035) Urine Protein (<30 mg/dL) mg/dL Urine Glucose (UA) (NEGATIVE) mg/dL Urine Ketones (NEGATIVE) mg/dL Urine Blood (NEGATIVE) Urine Nitrate (NEGATIVE) Urine Bilirubin (NEGATIVE) Urine Urobilinogen (<1 E.U./dL) E.U./dL Ur Leukocyte Esterase (NEGATIVE) [place]/uL Urine RBC (0-2) /hpf Urine WBC (0-6) /hpf Ur Epithelial Cells (0-5) /hpf Urine Bacteria (NEG) Urine Opiates Screen (NEGATIVE) Urine Methadone Screen (NEGATIVE) Ur Barbiturates Screen (NEGATIVE) Ur Phencyclidine Scrn (NEGATIVE) Ur Amphetamines Screen (NEGATIVE) U Benzodiazepines Scrn (NEGATIVE) U Oth Cocaine Metabols (NEGATIVE) U Cannabinoids Screen (NEGATIVE) 08/07/17 08/07/17 08/07/17 Range/Units 05:15 01:10 01:10 WBC 7.5 D (4.5-11.0) 10^3/ul RBC 3.60 (3.5-6.1) 10^6/uL Hgb 10.9 L (12.0-16.0) g/dL Hct 32.4 L (36.0-48.0) % MCV 90.0 (80.0-105.0) fl MCH 30.3 (25.0-35.0) pg MCHC 33.6 (31.0-37.0) g/dl RDW 13.7 (11.5-14.5) % Plt Count 254 (120.0-450.0) 10^3/uL MPV 9.2 (7.0-11.0) fl Gran % 58.9 (50.0-68.0) % Lymph % (Auto) 33.6 (22.0-35.0) % [place] % (Auto) 6.6 H (1.0-6.0) % Eos % (Auto) 0.8 L (1.5-5.0) % Baso % (Auto) 0.1 (0.0-3.0) % Gran # 4.42 (1.4-6.5) Lymph # (Auto) 2.5 (1.2-3.4) [place] # (Auto) 0.5 (0.1-0.6) Eos # (Auto) 0.1 (0.0-0.7) Baso # (Auto) 0.01 (0.0-2.0) K/mm3 pCO2 (35-45) mm/Hg pO2 (80-100) mm/Hg HCO3 (21-28) mmol/L ABG pH (7.35-7.45) ABG Total CO2 (22-28) mmol.L ABG O2 Saturation (95-98) % ABG Base Excess (-2.0-3.0) mmol/L ABG Potassium (3.6-5.2) mmol/L VBG pH (7.32-7.43) VBG pCO2 (40-60) VBG HCO3 (21-28) mmol/l VBG Total CO2 (22-28) mmol.L VBG O2 Sat (Calc) (40-65) % VBG Base Excess (0.0-2.0) mmol/L VBG Potassium (3.6-5.2) mmol/L Sodium 143 (132-148) mmol/L Chloride 106 (98-107) mmol/L Glucose (65-105) mg/dl Lactate (0.7-2.1) mmol/L FiO2 % Potassium 4.4 (3.6-5.0) mmol/L Carbon Dioxide 27 (21-33) mmol/L Anion Gap 14 (10-20) BUN 12 (7-21) mg/dL Creatinine 0.8 (0.7-1.2) mg/dl Est GFR ( Amer) > 60 Est GFR (Non-Af Amer) > 60 POC Glucose (mg/dL) (65-110) mg/dL Random Glucose 95 (70-110) mg/dL Calcium 8.9 (8.4-10.5) mg/dL Magnesium 2.1 (1.7-2.2) mg/dL Total Bilirubin (0.2-1.3) mg/dL AST (14-36) U/L ALT (7-56) U/L Alkaline Phosphatase (38-126) U/L Total Creatine Kinase (35-230) U/L CK-MB (CK-2) (0.0-3.6) ng/mL CK-MB (CK-2) % Troponin I 0.04 ng/mL Total Protein (5.8-8.3) g/dL Albumin (3.0-4.8) g/dL Globulin gm/dL Albumin/Globulin Ratio (1.1-1.8) Triglycerides (35-160) mg/dL Cholesterol (130-200) mg/dL LDL Cholesterol Direct (0-129) mg/dL HDL Cholesterol (29-60) mg/dL Procalcitonin (0.19-0.49) NG/ML Prolactin (3.0-18.9) ng/mL Arterial Blood Potassium (3.6-5.2) mmol/L Venous Blood Potassium (3.6-5.2) mmol/L Urine Color (YELLOW) Urine Appearance (CLEAR) Urine pH (4.7-8.0) Ur Specific [place] (1.005-1.035) Urine Protein (<30 mg/dL) mg/dL Urine Glucose (UA) (NEGATIVE) mg/dL Urine Ketones (NEGATIVE) mg/dL Urine Blood (NEGATIVE) Urine Nitrate (NEGATIVE) Urine Bilirubin (NEGATIVE) Urine Urobilinogen (<1 E.U./dL) E.U./dL Ur Leukocyte Esterase (NEGATIVE) [place]/uL Urine RBC (0-2) /hpf Urine WBC (0-6) /hpf Ur Epithelial Cells (0-5) /hpf Urine Bacteria (NEG) Urine Opiates Screen (NEGATIVE) Urine Methadone Screen (NEGATIVE) Ur Barbiturates Screen (NEGATIVE) Ur Phencyclidine Scrn (NEGATIVE) Ur Amphetamines Screen (NEGATIVE) U Benzodiazepines Scrn (NEGATIVE) U Oth Cocaine Metabols (NEGATIVE) U Cannabinoids Screen (NEGATIVE) 06/30/18 06/30/18 06/30/18 Range/Units 23:39 21:00 21:00 WBC (4.5-11.0) 10^3/ul RBC (3.5-6.1) 10^6/uL Hgb (12.0-16.0) g/dL Hct (36.0-48.0) % MCV (80.0-105.0) fl MCH (25.0-35.0) pg MCHC (31.0-37.0) g/dl RDW (11.5-14.5) % Plt Count (120.0-450.0) 10^3/uL MPV (7.0-11.0) fl Gran % (50.0-68.0) % Lymph % (Auto) (22.0-35.0) % [place] % (Auto) (1.0-6.0) % Eos % (Auto) (1.5-5.0) % Baso % (Auto) (0.0-3.0) % Gran # (1.4-6.5) Lymph # (Auto) (1.2-3.4) [place] # (Auto) (0.1-0.6) Eos # (Auto) (0.0-0.7) Baso # (Auto) (0.0-2.0) K/mm3 pCO2 (35-45) mm/Hg pO2 22 L (80-100) mm/Hg HCO3 (21-28) mmol/L ABG pH (7.35-7.45) ABG Total CO2 (22-28) mmol.L ABG O2 Saturation (95-98) % ABG Base Excess (-2.0-3.0) mmol/L ABG Potassium (3.6-5.2) mmol/L VBG pH 7.37 (7.32-7.43) VBG pCO2 51.0 (40-60) VBG HCO3 29.5 H (21-28) mmol/l VBG Total CO2 31.1 H (22-28) mmol.L VBG O2 Sat (Calc) 46.7 (40-65) % VBG Base Excess 3.1 H (0.0-2.0) mmol/L VBG Potassium 4.3 (3.6-5.2) mmol/L Sodium 141.0 (132-148) mmol/L Chloride 109.0 H (98-107) mmol/L Glucose 103 (65-105) mg/dl Lactate 0.7 (0.7-2.1) mmol/L FiO2 21.0 % Potassium (3.6-5.0) mmol/L Carbon Dioxide (21-33) mmol/L Anion Gap (10-20) BUN (7-21) mg/dL Creatinine (0.7-1.2) mg/dl Est GFR ( Amer) Est GFR (Non-Af Amer) POC Glucose (mg/dL) 85 (65-110) mg/dL Random Glucose (70-110) mg/dL Calcium (8.4-10.5) mg/dL Magnesium (1.7-2.2) mg/dL Total Bilirubin (0.2-1.3) mg/dL AST (14-36) U/L ALT (7-56) U/L Alkaline Phosphatase (38-126) U/L Total Creatine Kinase (35-230) U/L CK-MB (CK-2) (0.0-3.6) ng/mL CK-MB (CK-2) % Troponin I 0.04 D ng/mL Total Protein (5.8-8.3) g/dL Albumin (3.0-4.8) g/dL Globulin gm/dL Albumin/Globulin Ratio (1.1-1.8) Triglycerides (35-160) mg/dL Cholesterol (130-200) mg/dL LDL Cholesterol Direct (0-129) mg/dL HDL Cholesterol (29-60) mg/dL Procalcitonin (0.19-0.49) NG/ML Prolactin (3.0-18.9) ng/mL Arterial Blood Potassium (3.6-5.2) mmol/L Venous Blood Potassium 4.3 (3.6-5.2) mmol/L Urine Color (YELLOW) Urine Appearance (CLEAR) Urine pH (4.7-8.0) Ur Specific [place] (1.005-1.035) Urine Protein (<30 mg/dL) mg/dL Urine Glucose (UA) (NEGATIVE) mg/dL Urine Ketones (NEGATIVE) mg/dL Urine Blood (NEGATIVE) Urine Nitrate (NEGATIVE) Urine Bilirubin (NEGATIVE) Urine Urobilinogen (<1 E.U./dL) E.U./dL Ur Leukocyte Esterase (NEGATIVE) [place]/uL Urine RBC (0-2) /hpf Urine WBC (0-6) /hpf Ur Epithelial Cells (0-5) /hpf Urine Bacteria (NEG) Urine Opiates Screen (NEGATIVE) Urine Methadone Screen (NEGATIVE) Ur Barbiturates Screen (NEGATIVE) Ur Phencyclidine Scrn (NEGATIVE) Ur Amphetamines Screen (NEGATIVE) U Benzodiazepines Scrn (NEGATIVE) U Oth Cocaine Metabols (NEGATIVE) U Cannabinoids Screen (NEGATIVE) 08/06/17 08/06/17 08/06/17 Range/Units 18:39 17:40 16:30 WBC (4.5-11.0) 10^3/ul RBC (3.5-6.1) 10^6/uL Hgb (12.0-16.0) g/dL Hct (36.0-48.0) % MCV (80.0-105.0) fl MCH (25.0-35.0) pg MCHC (31.0-37.0) g/dl RDW (11.5-14.5) % Plt Count (120.0-450.0) 10^3/uL MPV (7.0-11.0) fl Gran % (50.0-68.0) % Lymph % (Auto) (22.0-35.0) % [place] % (Auto) (1.0-6.0) % Eos % (Auto) (1.5-5.0) % Baso % (Auto) (0.0-3.0) % Gran # (1.4-6.5) Lymph # (Auto) (1.2-3.4) [place] # (Auto) (0.1-0.6) Eos # (Auto) (0.0-0.7) Baso # (Auto) (0.0-2.0) K/mm3 pCO2 35 (35-45) mm/Hg pO2 66.0 L 25 L (80-100) mm/Hg HCO3 22.7 (21-28) mmol/L ABG pH 7.42 (7.35-7.45) ABG Total CO2 23.8 (22-28) mmol.L ABG O2 Saturation 96.9 (95-98) % ABG Base Excess -1.3 (-2.0-3.0) mmol/L ABG Potassium 3.0 L (3.6-5.2) mmol/L VBG pH 7.34 (7.32-7.43) VBG pCO2 51.0 (40-60) VBG HCO3 27.5 (21-28) mmol/l VBG Total CO2 29.1 H (22-28) mmol.L VBG O2 Sat (Calc) 57.6 (40-65) % VBG Base Excess 0.9 (0.0-2.0) mmol/L VBG Potassium 4.0 (3.6-5.2) mmol/L Sodium 144.0 141.0 (132-148) mmol/L Chloride 115.0 H 107.0 (98-107) mmol/L Glucose 84 112 H (65-105) mg/dl Lactate 0.6 L 2.0 (0.7-2.1) mmol/L FiO2 21.0 21.0 % Potassium (3.6-5.0) mmol/L Carbon Dioxide (21-33) mmol/L Anion Gap (10-20) BUN (7-21) mg/dL Creatinine (0.7-1.2) mg/dl Est GFR ( Amer) Est GFR (Non-Af Amer) POC Glucose (mg/dL) (65-110) mg/dL Random Glucose (70-110) mg/dL Calcium (8.4-10.5) mg/dL Magnesium (1.7-2.2) mg/dL Total Bilirubin (0.2-1.3) mg/dL AST (14-36) U/L ALT (7-56) U/L Alkaline Phosphatase (38-126) U/L Total Creatine Kinase (35-230) U/L CK-MB (CK-2) (0.0-3.6) ng/mL CK-MB (CK-2) % Troponin I ng/mL Total Protein (5.8-8.3) g/dL Albumin (3.0-4.8) g/dL Globulin gm/dL Albumin/Globulin Ratio (1.1-1.8) Triglycerides (35-160) mg/dL Cholesterol (130-200) mg/dL LDL Cholesterol Direct (0-129) mg/dL HDL Cholesterol (29-60) mg/dL Procalcitonin (0.19-0.49) NG/ML Prolactin 38.5 H (3.0-18.9) ng/mL Arterial Blood Potassium 3.0 L (3.6-5.2) mmol/L Venous Blood Potassium 4.0 (3.6-5.2) mmol/L Urine Color (YELLOW) Urine Appearance (CLEAR) Urine pH (4.7-8.0) Ur Specific [place] (1.005-1.035) Urine Protein (<30 mg/dL) mg/dL Urine Glucose (UA) (NEGATIVE) mg/dL Urine Ketones (NEGATIVE) mg/dL Urine Blood (NEGATIVE) Urine Nitrate (NEGATIVE) Urine Bilirubin (NEGATIVE) Urine Urobilinogen (<1 E.U./dL) E.U./dL Ur Leukocyte Esterase (NEGATIVE) [place]val[place]/uL Urine RBC (0-2) /hpf Urine WBC (0-6) /hpf Ur Epithelial Cells (0-5) /hpf Urine Bacteria (NEG) Urine Opiates Screen (NEGATIVE) Urine Methadone Screen (NEGATIVE) Ur Barbiturates Screen (NEGATIVE) Ur Phencyclidine Scrn (NEGATIVE) Ur Amphetamines Screen (NEGATIVE) U Benzodiazepines Scrn (NEGATIVE) U Oth Cocaine Metabols (NEGATIVE) U Cannabinoids Screen (NEGATIVE) 08/06/17 08/06/17 08/06/17 Range/Units 16:30 15:46 15:15 WBC (4.5-11.0) 10^3/ul RBC (3.5-6.1) 10^6/uL Hgb (12.0-16.0) g/dL Hct (36.0-48.0) % MCV (80.0-105.0) fl MCH (25.0-35.0) pg MCHC (31.0-37.0) g/dl RDW (11.5-14.5) % Plt Count (120.0-450.0) 10^3/uL MPV (7.0-11.0) fl Gran % (50.0-68.0) % Lymph % (Auto) (22.0-35.0) % [place] % (Auto) (1.0-6.0) % Eos % (Auto) (1.5-5.0) % Baso % (Auto) (0.0-3.0) % Gran # (1.4-6.5) Lymph # (Auto) (1.2-3.4) [place] # (Auto) (0.1-0.6) Eos # (Auto) (0.0-0.7) Baso # (Auto) (0.0-2.0) K/mm3 pCO2 41 (35-45) mm/Hg pO2 72.0 L (80-100) mm/Hg HCO3 24.8 (21-28) mmol/L ABG pH 7.39 (7.35-7.45) ABG Total CO2 26.1 (22-28) mmol.L ABG O2 Saturation 97.9 (95-98) % ABG Base Excess -0.2 (-2.0-3.0) mmol/L ABG Potassium 3.2 L (3.6-5.2) mmol/L VBG pH (7.32-7.43) VBG pCO2 (40-60) VBG HCO3 (21-28) mmol/l VBG Total CO2 (22-28) mmol.L VBG O2 Sat (Calc) (40-65) % VBG Base Excess (0.0-2.0) mmol/L VBG Potassium (3.6-5.2) mmol/L Sodium 141.0 (132-148) mmol/L Chloride 110.0 H (98-107) mmol/L Glucose 141 H (65-105) mg/dl Lactate 1.5 (0.7-2.1) mmol/L FiO2 21.0 % Potassium (3.6-5.0) mmol/L Carbon Dioxide (21-33) mmol/L Anion Gap (10-20) BUN (7-21) mg/dL Creatinine (0.7-1.2) mg/dl Est GFR ( Amer) Est GFR (Non-Af Amer) POC Glucose (mg/dL) (65-110) mg/dL Random Glucose (70-110) mg/dL Calcium (8.4-10.5) mg/dL Magnesium (1.7-2.2) mg/dL Total Bilirubin (0.2-1.3) mg/dL AST (14-36) U/L ALT (7-56) U/L Alkaline Phosphatase (38-126) U/L Total Creatine Kinase (35-230) U/L CK-MB (CK-2) (0.0-3.6) ng/mL CK-MB (CK-2) % Troponin I ng/mL Total Protein (5.8-8.3) g/dL Albumin (3.0-4.8) g/dL Globulin gm/dL Albumin/Globulin Ratio (1.1-1.8) Triglycerides (35-160) mg/dL Cholesterol (130-200) mg/dL LDL Cholesterol Direct (0-129) mg/dL HDL Cholesterol (29-60) mg/dL Procalcitonin 0.08 L (0.19-0.49) NG/ML Prolactin (3.0-18.9) ng/mL Arterial Blood Potassium 3.2 L (3.6-5.2) mmol/L Venous Blood Potassium (3.6-5.2) mmol/L Urine Color (YELLOW) Urine Appearance (CLEAR) Urine pH (4.7-8.0) Ur Specific [place] (1.005-1.035) Urine Protein (<30 mg/dL) mg/dL Urine Glucose (UA) (NEGATIVE) mg/dL Urine Ketones (NEGATIVE) mg/dL Urine Blood (NEGATIVE) Urine Nitrate (NEGATIVE) Urine Bilirubin (NEGATIVE) Urine Urobilinogen (<1 E.U./dL) E.U./dL Ur Leukocyte Esterase (NEGATIVE) [place]/uL Urine RBC (0-2) /hpf Urine WBC (0-6) /hpf Ur Epithelial Cells (0-5) /hpf Urine Bacteria (NEG) Urine Opiates Screen Positive H (NEGATIVE) Urine Methadone Screen Negative (NEGATIVE) Ur Barbiturates Screen Negative (NEGATIVE) Ur Phencyclidine Scrn Negative (NEGATIVE) Ur Amphetamines Screen Negative (NEGATIVE) U Benzodiazepines Scrn Negative (NEGATIVE) U Oth Cocaine Metabols Negative (NEGATIVE) U Cannabinoids Screen Negative (NEGATIVE) 08/06/17 Range/Units 15:15 WBC (4.5-11.0) 10^3/ul RBC (3.5-6.1) 10^6/uL Hgb (12.0-16.0) g/dL Hct (36.0-48.0) % MCV (80.0-105.0) fl MCH (25.0-35.0) pg MCHC (31.0-37.0) g/dl RDW (11.5-14.5) % Plt Count (120.0-450.0) 10^3/uL MPV (7.0-11.0) fl Gran % (50.0-68.0) % Lymph % (Auto) (22.0-35.0) % [place]ullen % (Auto) (1.0-6.0) % Eos % (Auto) (1.5-5.0) % Baso % (Auto) (0.0-3.0) % Gran # (1.4-6.5) Lymph # (Auto) (1.2-3.4) [place] # (Auto) (0.1-0.6) Eos # (Auto) (0.0-0.7) Baso # (Auto) (0.0-2.0) K/mm3 pCO2 (35-45) mm/Hg pO2 (80-100) mm/Hg HCO3 (21-28) mmol/L ABG pH (7.35-7.45) ABG Total CO2 (22-28) mmol.L ABG O2 Saturation (95-98) % ABG Base Excess (-2.0-3.0) mmol/L ABG Potassium (3.6-5.2) mmol/L VBG pH (7.32-7.43) VBG pCO2 (40-60) VBG HCO3 (21-28) mmol/l VBG Total CO2 (22-28) mmol.L VBG O2 Sat (Calc) (40-65) % VBG Base Excess (0.0-2.0) mmol/L VBG Potassium (3.6-5.2) mmol/L Sodium (132-148) mmol/L Chloride (98-107) mmol/L Glucose (65-105) mg/dl Lactate (0.7-2.1) mmol/L FiO2 % Potassium (3.6-5.0) mmol/L Carbon Dioxide (21-33) mmol/L Anion Gap (10-20) BUN (7-21) mg/dL Creatinine (0.7-1.2) mg/dl Est GFR ( Amer) Est GFR (Non-Af Amer) POC Glucose (mg/dL) (65-110) mg/dL Random Glucose (70-110) mg/dL Calcium (8.4-10.5) mg/dL Magnesium (1.7-2.2) mg/dL Total Bilirubin (0.2-1.3) mg/dL AST (14-36) U/L ALT (7-56) U/L Alkaline Phosphatase (38-126) U/L Total Creatine Kinase (35-230) U/L CK-MB (CK-2) (0.0-3.6) ng/mL CK-MB (CK-2) % Troponin I ng/mL Total Protein (5.8-8.3) g/dL Albumin (3.0-4.8) g/dL Globulin gm/dL Albumin/Globulin Ratio (1.1-1.8) Triglycerides (35-160) mg/dL Cholesterol (130-200) mg/dL LDL Cholesterol Direct (0-129) mg/dL HDL Cholesterol (29-60) mg/dL Procalcitonin (0.19-0.49) NG/ML Prolactin (3.0-18.9) ng/mL Arterial Blood Potassium (3.6-5.2) mmol/L Venous Blood Potassium (3.6-5.2) mmol/L Urine Color Yellow (YELLOW) Urine Appearance Sl cloudy (CLEAR) Urine pH 6.0 (4.7-8.0) Ur Specific [place] <= 1.005 (1.005-1.035) Urine Protein Negative (<30 mg/dL) mg/dL Urine Glucose (UA) 100 H (NEGATIVE) mg/dL Urine Ketones Negative (NEGATIVE) mg/dL Urine Blood Trace-lysed H (NEGATIVE) Urine Nitrate Negative (NEGATIVE) Urine Bilirubin Negative (NEGATIVE) Urine Urobilinogen 0.2 (<1 E.U./dL) E.U./dL Ur Leukocyte Esterase Small H (NEGATIVE) [place]/uL Urine RBC 1 - 3 (0-2) /hpf Urine WBC 10 - 15 (0-6) /hpf Ur Epithelial Cells 4 - 5 (0-5) /hpf Urine Bacteria Mod (NEG) Urine Opiates Screen (NEGATIVE) Urine Methadone Screen (NEGATIVE) Ur Barbiturates Screen (NEGATIVE) Ur Phencyclidine Scrn (NEGATIVE) Ur Amphetamines Screen (NEGATIVE) U Benzodiazepines Scrn (NEGATIVE) U Oth Cocaine Metabols (NEGATIVE) U Cannabinoids Screen (NEGATIVE) Laboratory Results - last 24 hr 08/06/17 08/06/17 08/06/17 15:15 15:15 15:46 WBC RBC Hgb Hct MCV MCH MCHC RDW Plt Count MPV Gran % Lymph % (Auto) [place] % (Auto) Eos % (Auto) Baso % (Auto) Gran # Lymph # (Auto) [place] # (Auto) Eos # (Auto) Baso # (Auto) pCO2 41 pO2 72.0 L HCO3 24.8 ABG pH 7.39 ABG Total CO2 26.1 ABG O2 Saturation 97.9 ABG Base Excess -0.2 ABG Potassium 3.2 L VBG pH VBG pCO2 VBG HCO3 VBG Total CO2 VBG O2 Sat (Calc) VBG Base Excess VBG Potassium Sodium 141.0 Chloride 110.0 H Glucose 141 H Lactate 1.5 FiO2 21.0 Potassium Carbon Dioxide Anion Gap BUN Creatinine Est GFR ( Amer) Est GFR (Non-Af Amer) POC Glucose (mg/dL) Random Glucose Calcium Magnesium Total Bilirubin AST ALT Alkaline Phosphatase Total Creatine Kinase CK-MB (CK-2) CK-MB (CK-2) % Troponin I Total Protein Albumin Globulin Albumin/Globulin Ratio Triglycerides Cholesterol LDL Cholesterol Direct HDL Cholesterol Procalcitonin Prolactin Arterial Blood Potassium 3.2 L Venous Blood Potassium Urine Color Yellow Urine Appearance Sl cloudy Urine pH 6.0 Ur Specific [place] <= 1.005 Urine Protein Negative Urine Glucose (UA) 100 H Urine Ketones Negative Urine Blood Trace-lysed H Urine Nitrate Negative Urine Bilirubin Negative Urine Urobilinogen 0.2 Ur Leukocyte Esterase Small H Urine RBC 1 - 3 Urine WBC 10 - 15 Ur Epithelial Cells 4 - 5 Urine Bacteria Mod Urine Opiates Screen Positive H Urine Methadone Screen Negative Ur Barbiturates Screen Negative Ur Phencyclidine Scrn Negative Ur Amphetamines Screen Negative U Benzodiazepines Scrn Negative U Oth Cocaine Metabols Negative U Cannabinoids Screen Negative 08/06/17 08/06/17 08/06/17 16:30 16:30 17:40 WBC RBC Hgb Hct MCV MCH MCHC RDW Plt Count MPV Gran % Lymph % (Auto) Mcmullen % (Auto) Eos % (Auto) Baso % (Auto) Gran # Lymph # (Auto) Mcmullen # (Auto) Eos # (Auto) Baso # (Auto) pCO2 pO2 25 L HCO3 ABG pH ABG Total CO2 ABG O2 Saturation ABG Base Excess ABG Potassium VBG pH 7.34 VBG pCO2 51.0 VBG HCO3 27.5 VBG Total CO2 29.1 H VBG O2 Sat (Calc) 57.6 VBG Base Excess 0.9 VBG Potassium 4.0 Sodium 141.0 Chloride 107.0 Glucose 112 H Lactate 2.0 FiO2 21.0 Potassium Carbon Dioxide Anion Gap BUN Creatinine Est GFR ( Amer) Est GFR (Non-Af Amer) POC Glucose (mg/dL) Random Glucose Calcium Magnesium Total Bilirubin AST ALT Alkaline Phosphatase Total Creatine Kinase CK-MB (CK-2) CK-MB (CK-2) % Troponin I Total Protein Albumin Globulin Albumin/Globulin Ratio Triglycerides Cholesterol LDL Cholesterol Direct HDL Cholesterol Procalcitonin 0.08 L Prolactin 38.5 H Arterial Blood Potassium Venous Blood Potassium 4.0 Urine Color Urine Appearance Urine pH Ur Specific [place] Urine Protein Urine Glucose (UA) Urine Ketones Urine Blood Urine Nitrate Urine Bilirubin Urine Urobilinogen Ur Leukocyte Esterase Urine RBC Urine WBC Ur Epithelial Cells Urine Bacteria Urine Opiates Screen Urine Methadone Screen Ur Barbiturates Screen Ur Phencyclidine Scrn Ur Amphetamines Screen U Benzodiazepines Scrn U Oth Cocaine Metabols U Cannabinoids Screen 08/06/17 08/06/17 08/06/17 18:39 21:00 21:00 WBC RBC Hgb Hct MCV MCH MCHC RDW Plt Count MPV Gran % Lymph % (Auto) [place]mullen % (Auto) Eos % (Auto) Baso % (Auto) Gran # Lymph # (Auto) [place]mullen # (Auto) Eos # (Auto) Baso # (Auto) pCO2 35 pO2 66.0 L 22 L HCO3 22.7 ABG pH 7.42 ABG Total CO2 23.8 ABG O2 Saturation 96.9 ABG Base Excess -1.3 ABG Potassium 3.0 L VBG pH 7.37 VBG pCO2 51.0 VBG HCO3 29.5 H VBG Total CO2 31.1 H VBG O2 Sat (Calc) 46.7 VBG Base Excess 3.1 H VBG Potassium 4.3 Sodium 144.0 141.0 Chloride 115.0 H 109.0 H Glucose 84 103 Lactate 0.6 L 0.7 FiO2 21.0 21.0 Potassium Carbon Dioxide Anion Gap BUN Creatinine Est GFR ( Amer) Est GFR (Non-Af Amer) POC Glucose (mg/dL) Random Glucose Calcium Magnesium Total Bilirubin AST ALT Alkaline Phosphatase Total Creatine Kinase CK-MB (CK-2) CK-MB (CK-2) % Troponin I 0.04 D Total Protein Albumin Globulin Albumin/Globulin Ratio Triglycerides Cholesterol LDL Cholesterol Direct HDL Cholesterol Procalcitonin Prolactin Arterial Blood Potassium 3.0 L Venous Blood Potassium 4.3 Urine Color Urine Appearance Urine pH Ur Specific [place] Urine Protein Urine Glucose (UA) Urine Ketones Urine Blood Urine Nitrate Urine Bilirubin Urine Urobilinogen Ur Leukocyte Esterase Urine RBC Urine WBC Ur Epithelial Cells Urine Bacteria Urine Opiates Screen Urine Methadone Screen Ur Barbiturates Screen Ur Phencyclidine Scrn Ur Amphetamines Screen U Benzodiazepines Scrn U Oth Cocaine Metabols U Cannabinoids Screen 08/06/17 08/07/17 08/07/17 23:39 01:10 01:10 WBC RBC Hgb Hct MCV MCH MCHC RDW Plt Count MPV Gran % Lymph % (Auto) [place] % (Auto) Eos % (Auto) Baso % (Auto) Gran # Lymph # (Auto) [place] # (Auto) Eos # (Auto) Baso # (Auto) pCO2 pO2 HCO3 ABG pH ABG Total CO2 ABG O2 Saturation ABG Base Excess ABG Potassium VBG pH VBG pCO2 VBG HCO3 VBG Total CO2 VBG O2 Sat (Calc) VBG Base Excess VBG Potassium Sodium 143 Chloride 106 Glucose Lactate FiO2 Potassium 4.4 Carbon Dioxide 27 Anion Gap 14 BUN 12 Creatinine 0.8 Est GFR ( Amer) > 60 Est GFR (Non-Af Amer) > 60 POC Glucose (mg/dL) 85 Random Glucose 95 Calcium 8.9 Magnesium 2.1 Total Bilirubin AST ALT Alkaline Phosphatase Total Creatine Kinase CK-MB (CK-2) CK-MB (CK-2) % Troponin I 0.04 Total Protein Albumin Globulin Albumin/Globulin Ratio Triglycerides Cholesterol LDL Cholesterol Direct HDL Cholesterol Procalcitonin Prolactin Arterial Blood Potassium Venous Blood Potassium Urine Color Urine Appearance Urine pH Ur Specific [place] Urine Protein Urine Glucose (UA) Urine Ketones Urine Blood Urine Nitrate Urine Bilirubin Urine Urobilinogen Ur Leukocyte Esterase Urine RBC Urine WBC Ur Epithelial Cells Urine Bacteria Urine Opiates Screen Urine Methadone Screen Ur Barbiturates Screen Ur Phencyclidine Scrn Ur Amphetamines Screen U Benzodiazepines Scrn U Oth Cocaine Metabols U Cannabinoids Screen 08/07/17 08/07/17 08/07/17 05:15 05:15 05:30 WBC 7.5 D RBC 3.60 Hgb 10.9 L Hct 32.4 L MCV 90.0 MCH 30.3 MCHC 33.6 RDW 13.7 Plt Count 254 MPV 9.2 Gran % 58.9 Lymph % (Auto) 33.6 Mcmullen % (Auto) 6.6 H Eos % (Auto) 0.8 L Baso % (Auto) 0.1 Gran # 4.42 Lymph # (Auto) 2.5 [place]mullen # (Auto) 0.5 Eos # (Auto) 0.1 Baso # (Auto) 0.01 pCO2 41 pO2 102.0 H HCO3 26.0 ABG pH 7.41 ABG Total CO2 27.3 ABG O2 Saturation 99.2 H ABG Base Excess 1.2 ABG Potassium 3.4 L VBG pH VBG pCO2 VBG HCO3 VBG Total CO2 VBG O2 Sat (Calc) VBG Base Excess VBG Potassium Sodium 143 140.0 Chloride 105 111.0 H Glucose 92 Lactate 0.6 L FiO2 28.0 Potassium 4.1 Carbon Dioxide 29 Anion Gap 13 BUN 11 Creatinine 0.7 Est GFR ( Amer) > 60 Est GFR (Non-Af Amer) > 60 POC Glucose (mg/dL) Random Glucose 96 Calcium 9.3 Magnesium 2.0 Total Bilirubin 0.9 AST 80 H D ALT 73 H Alkaline Phosphatase 93 Total Creatine Kinase 285 H CK-MB (CK-2) 0.7 CK-MB (CK-2) % Cancelled Troponin I Total Protein 7.8 Albumin 4.3 Globulin 3.5 Albumin/Globulin Ratio 1.2 Triglycerides 67 Cholesterol 180 LDL Cholesterol Direct 86 HDL Cholesterol 57 Procalcitonin Prolactin Arterial Blood Potassium 3.4 L Venous Blood Potassium Urine Color Urine Appearance Urine pH Ur Specific [place] Urine Protein Urine Glucose (UA) Urine Ketones Urine Blood Urine Nitrate Urine Bilirubin Urine Urobilinogen Ur Leukocyte Esterase Urine RBC Urine WBC Ur Epithelial Cells Urine Bacteria Urine Opiates Screen Urine Methadone Screen Ur Barbiturates Screen Ur Phencyclidine Scrn Ur Amphetamines Screen U Benzodiazepines Scrn U Oth Cocaine Metabols U Cannabinoids Screen 08/07/17 05:52 WBC RBC Hgb Hct MCV MCH MCHC RDW Plt Count MPV Gran % Lymph % (Auto) [place] % (Auto) Eos % (Auto) Baso % (Auto) Gran # Lymph # (Auto) [place] # (Auto) Eos # (Auto) Baso # (Auto) pCO2 pO2 HCO3 ABG pH ABG Total CO2 ABG O2 Saturation ABG Base Excess ABG Potassium VBG pH VBG pCO2 VBG HCO3 VBG Total CO2 VBG O2 Sat (Calc) VBG Base Excess VBG Potassium Sodium Chloride Glucose Lactate FiO2 Potassium Carbon Dioxide Anion Gap BUN Creatinine Est GFR ( Amer) Est GFR (Non-Af Amer) POC Glucose (mg/dL) 78 Random Glucose Calcium Magnesium Total Bilirubin AST ALT Alkaline Phosphatase Total Creatine Kinase CK-MB (CK-2) CK-MB (CK-2) % Troponin I Total Protein Albumin Globulin Albumin/Globulin Ratio Triglycerides Cholesterol LDL Cholesterol Direct HDL Cholesterol Procalcitonin Prolactin Arterial Blood Potassium Venous Blood Potassium Urine Color Urine Appearance Urine pH Ur Specific [place] Urine Protein Urine Glucose (UA) Urine Ketones Urine Blood Urine Nitrate Urine Bilirubin Urine Urobilinogen Ur Leukocyte Esterase Urine RBC Urine WBC Ur Epithelial Cells Urine Bacteria Urine Opiates Screen Urine Methadone Screen Ur Barbiturates Screen Ur Phencyclidine Scrn Ur Amphetamines Screen U Benzodiazepines Scrn U Oth Cocaine Metabols U Cannabinoids Screen Critical Care Progress Note - Nutrition Nutrition: Nutrition Category Date Time Status Heart Healthy Diet [DIET] Diets 08/07/17 Lunch Active Attending/Attestation - Attestation I have personally seen and examined this patient.: Yes I have fully participated in the care of the patient.: Yes I have reviewed all pertinent clinical information: Yes Notes (Text): 08/07/17 13:[address] Mahan note
--- NOTE | 2017-08-07 18:38 | CP.PCM.PN ---
Subjective - Date & Time of Evaluation Date of Evaluation: 08/07/17 Time of Evaluation: 13:15 - Subjective Subjective: Infectious Disease Follow Up: August 07, 2017 56 yo female found by boyfriend in altered mental status kneeling the bathroom with dilated pupils. Bag of heroin found next to patient at that time. Patient was given Narcan by EMS and again in ER. The patient has been mostly uncooperative, confused, and agitated. As per boyfriend, the patient was in her usual state of health on the morning of admission. The patient may have had some chest pain for the past few weeks. Patient is awake and alert now. She is adamant that her children not know about any of her drug abuse. Objective - Vital Signs/Intake and Output Vital Signs (last 24 hours): Temp Pulse Resp BP Pulse Ox 98.4 F 70 18 135/75 100 08/07/17 14:00 08/07/17 14:00 08/07/17 14:00 08/07/17 14:00 08/07/17 14:00 Intake and Output: 08/07/17 08/07/17 06:59 18:59 Intake Total 1850 Output Total 450 Balance 1400 - Medications Medications: Current Medications Amlodipine Besylate (Norvasc) 10 mg PO DAILY [facility] Last Admin: 08/07/17 09:21 Dose: 10 mg Aspirin (Aspirin Chewable) 81 mg PO DAILY [facility] Last Admin: 08/07/17 09:21 Dose: 81 mg Enoxaparin Sodium (Lovenox) 40 mg SC DAILY [facility] PRN Reason: Protocol Last Admin: 08/07/17 09:22 Dose: 40 mg Ceftriaxone Sodium (Rocephin 1 Gram Ivpb) 1 gm in 100 mls @ 100 mls/hr IVPB DAILY [facility] PRN Reason: Protocol Last Admin: 08/07/17 09:23 Dose: 100 mls/hr Lactated Ringer's (Lactated Ringer's) 1,000 mls @ 75 mls/hr IV .[id number] [facility] Lorazepam (Ativan) 2 mg IVP Q6H PRN; Protocol PRN Reason: Agitation Pantoprazole Sodium (Protonix Inj) 40 mg IVP DAILY [facility] Last Admin: 08/07/17 09:22 Dose: 40 mg Polyethylene Glycol (Miralax) 17 gm PO DAILY [facility] Last Admin: 08/07/17 09:21 Dose: 17 gm - Labs Labs: 08/07/17 05:15 08/07/17 05:15 PT 12.9 SECONDS (9.4-12.5) H 08/06/17 13:37 INR 1.12 (0.93-1.08) H 08/06/17 13:37 APTT 26.1 Seconds (25.1-36.5) 08/06/17 13:37 - Constitutional Appears: Non-toxic, No Acute Distress, Older Than Stated Age - Head Exam Head Exam: ATRAUMATIC, NORMOCEPHALIC - Eye Exam Eye Exam: EOMI, PERRL Pupil Exam: NORMAL ACCOMODATION, PERRL - ENT Exam ENT Exam: Mucous Membranes Moist, Normal External Ear Exam, TM's Normal Bilaterally - Neck Exam Neck Exam: Full ROM, Normal Inspection - Respiratory Exam Respiratory Exam: Clear to Ausculation Bilateral, NORMAL BREATHING PATTERN. absent: Rales, Rhonchi, Wheezes - Cardiovascular Exam Cardiovascular Exam: REGULAR RHYTHM, RRR, +S1, +S2 - GI/Abdominal Exam GI & Abdominal Exam: Soft, Normal Bowel Sounds. absent: Distended, Tenderness - Extremities Exam Extremities Exam: Full ROM, Normal Inspection - Neurological Exam Neurological Exam: Alert, Awake, CN II-XII Intact, Oriented x3 - Psychiatric Exam Psychiatric exam: Normal Affect, Normal Mood - Skin Skin Exam: Intact, Normal Color Assessment and Plan - Assessment and Plan (Free Text) Assessment: 56 yo female found in altered mental status by boyfriend with bag of heroin nearby. The patient has leukocytosis, hypokalemia, elevates tranaminases, lactic acidosis. Started on Rocephin. Chest X-ray with no signs of active disease. CT abdomen with cholelithiasis but no signs of acute cholecystitis. Opiates positive on urine drug screen. Supportive care. Temperature up to 100.0 F. Cannot rule sepsis vs. aftereffects of excessive heroin ingestion and subsequent withdrawal. Maintain Rocephin for now. Can stop at third day of administration. Thank you for allowing me to participate in the care of the patient, we will follow with you.
[2017-08-08 07:16] LABS: ALB/GLOB RATIO 1.1 (1.1-1.8); ALT/SGPT 55 U/L (7-56); AST/SGOT 50 U/L (14-36); BLOOD UREA NITROGEN 8 mg/dL (7-21); CALCIUM 9.3 mg/dL (8.4-10.5); GFR AFRICAN-AMERICAN > 60; GFR NON-AFRICAN AMERICAN > 60
[2017-08-08 07:22] LABS: BASO # 0.02 K/mm3 (0.0-2.0); BASO % 0.4 % (0.0-3.0); EOS # 0.2 (0.0-0.7); EOS % 3.8 % (1.5-5.0); GRAN # 2.47 (1.4-6.5); GRAN % 47.6 % (50.0-68.0); MEAN CELL VOLUME 89.1 fl (80.0-105.0); MEAN CORPUSCULAR HEMOGLOBIN 30.8 pg (25.0-35.0); MEAN CORPUSCULAR HGB CONC 34.6 g/dl (31.0-37.0); MEAN PLATELET VOLUME 9.3 fl (7.0-11.0); MONO # 0.5 (0.1-0.6); MONO % 9.2 % (1.0-6.0); RBC 3.57 10^6/uL (3.5-6.1); RED CELL DISTRIBUTION WIDTH 13.3 % (11.5-14.5); WHITE BLOOD COUNT 5.2 10^3/ul (4.5-11.0)
[2017-08-08 10:51] LABS: HEPATITIS B SURFACE AG Negative (NEGATIVE)
[2017-08-08 10:57] LABS: HEPATITIS A IGM NEGATIVE (NEGATIVE); HEPATITIS B CORE AB NEGATIVE (NEGATIVE)
[2017-08-08 11:09] LABS: HEPATITIS C ANTIBODY NEGATIVE (NEGATIVE)
[2017-08-08] MEDS: POLYETHYLENE GLYCOL 3350 17 GM/Dose PACKET PO SCH (11:15)
[2017-08-08] MEDS: Enoxaparin 40 mg Syringe SC SCH (11:15)
[2017-08-08] MEDS: cefTRIAXone 1 gm 1 GM/100 ML BAG IVPB SCH (11:30)
--- NOTE | 2017-08-08 13:53 | CP.PCM.PN ---
<Zelalem Zimmerman - Last Filed: 08/08/17 13:50> Subjective - Date & Time of Evaluation Date of Evaluation: 08/08/17 Time of Evaluation: 13:50 - Subjective Subjective: Pt seen and examined at bedside. Denies any acute complaints. States she slept well overnight, admits to passing flatus, reports 1 BM yesterday. Tolerating diet well. Pt anxious to go home, states she feels much better. Objective - Vital Signs/Intake and Output Vital Signs (last 24 hours): Temp Pulse Resp BP Pulse Ox 98.4 F 70 20 132/81 99 08/08/17 07:26 08/08/17 07:26 08/08/17 07:26 08/08/17 11:14 08/08/17 07:26 Intake and Output: 08/08/17 08/08/17 06:59 18:59 Intake Total 680 Balance 680 - Medications Medications: Current Medications Amlodipine Besylate (Norvasc) 10 mg PO DAILY [facility] Last Admin: 08/08/17 11:14 Dose: 10 mg Aspirin (Aspirin Chewable) 81 mg PO DAILY [facility] Last Admin: 08/08/17 11:14 Dose: 81 mg Enoxaparin Sodium (Lovenox) 40 mg SC DAILY [facility] PRN Reason: Protocol Last Admin: 08/08/17 11:15 Dose: 40 mg Lactated Ringer's (Lactated Ringer's) 1,000 mls @ 75 mls/hr IV .[id number] [facility] Lorazepam (Ativan) 2 mg IVP Q6H PRN; Protocol PRN Reason: Agitation Pantoprazole Sodium (Protonix Ec Tab) 40 mg PO ACB [facility] Polyethylene Glycol (Miralax) 17 gm PO DAILY [facility] Last Admin: 08/08/17 11:15 Dose: Not Given - Labs Labs: 08/08/17 06:30 08/08/17 06:30 PT 12.9 SECONDS (9.4-12.5) H 08/06/17 13:37 INR 1.12 (0.93-1.08) H 08/06/17 13:37 APTT 26.1 Seconds (25.1-36.5) 08/06/17 13:37 - Constitutional Appears: Well, Non-toxic, No Acute Distress - Head Exam Head Exam: ATRAUMATIC, NORMOCEPHALIC - Eye Exam Eye Exam: EOMI, Normal appearance, PERRL - ENT Exam ENT Exam: Mucous Membranes Moist, Normal Exam, Normal Oropharynx - Neck Exam Neck Exam: Full ROM, Normal Inspection - Respiratory Exam Respiratory Exam: Clear to Ausculation Bilateral, NORMAL BREATHING PATTERN - Cardiovascular Exam Cardiovascular Exam: REGULAR RHYTHM, +S1, +S2 - GI/Abdominal Exam GI & Abdominal Exam: Soft, Normal Bowel Sounds - Extremities Exam Extremities Exam: Full ROM, Normal Capillary Refill, Normal Inspection - Neurological Exam Neurological Exam: Alert, Awake, CN II-XII Intact, Normal Gait, Oriented x3 - Psychiatric Exam Psychiatric exam: Normal Affect, Normal Mood - Skin Skin Exam: Intact, Normal Color, Warm Assessment and Plan - Assessment and Plan (Free Text) Assessment: 56 y o female PMhx HTN, polysubstance abuse, who presented to ED s/p heroin vs. suboxone injection with AMS. Pt was given narcan in the field and evaluated in ED with elevated lactate, leukocytosis, temp 100 F, was admitted to ICU for AMS 2/2 polysubstance abuse vs. seizure? vs. ?infectious etiology. Pt responded to IVF challenge, was downgraded to med/surg floor. Plan: AMS Improved Etiology likely due to substance abuse, r/o seizure vs. sepsis vs. syncopal episode Lactate 6.1 on admission, s/p IVF repeat wnl S/p vanco/zosyn Procalcitonin wnl, U/a with pos leuk esterase Prolactin elevated, started on keppra ID consulted, f/u recs F/u echo results Sepsis Resolved Elevated lactate 6.1, leukocytosis, temp 100 F, AMS on admission IVF challenge and anbx administered Repeat lactate wnl, afebrile, mental status improved C/w rocephin F/u ID recs EtOH withdrawal CIWA protocol Ativan PRN agitation Cont to monitor Elevated Prolactin No reported seizure activity Head CT neg for acute findings Neuro consulted, f/u recs F/u EEG results Transaminitis Improved Elevated on admission Etiology EtOH vs. sepsis Abd/pelvic CT demonstrating cholelithiasis Cont to monitor HTN C/w norvasc 10 mg Hx substance and alcohol use Cessation counseling given UDS pos for opiates Monitor for withdrawal sxs Constipation - resolved, hx suboxone and opiate use C/w miralax and soap water enema GI/DVT ppx: Protonix, Lovenox Dispo: Pt to f/u with Dr. Rosas upon d/c Plan d/w attending, Dr. Mccartney. <Sydney Mccartney - Last Filed: 08/08/17 15:06> Objective - Vital Signs/Intake and Output Vital Signs (last 24 hours): Temp Pulse Resp BP Pulse Ox 98.4 F 70 20 132/81 99 08/08/17 07:26 08/08/17 07:26 08/08/17 07:26 08/08/17 11:14 08/08/17 07:26 Intake and Output: 08/08/17 08/08/17 06:59 18:59 Intake Total 1160 Balance 1160 - Medications Medications: Current Medications Amlodipine Besylate (Norvasc) 10 mg PO DAILY [facility] Last Admin: 08/08/17 11:14 Dose: 10 mg Aspirin (Aspirin Chewable) 81 mg PO DAILY [facility] Last Admin: 08/08/17 11:14 Dose: 81 mg Enoxaparin Sodium (Lovenox) 40 mg SC DAILY [facility] PRN Reason: Protocol Last Admin: 08/08/17 11:15 Dose: 40 mg Lactated Ringer's (Lactated Ringer's) 1,000 mls @ 75 mls/hr IV .[id number] [facility] Lorazepam (Ativan) 2 mg IVP Q6H PRN; Protocol PRN Reason: Agitation Pantoprazole Sodium (Protonix Ec Tab) 40 mg PO ACB [facility] Polyethylene Glycol (Miralax) 17 gm PO DAILY [facility] Last Admin: 08/08/17 11:15 Dose: Not Given - Labs Labs: 08/08/17 06:30 08/08/17 06:30 PT 12.9 SECONDS (9.4-12.5) H 08/06/17 13:37 INR 1.12 (0.93-1.08) H 08/06/17 13:37 APTT 26.1 Seconds (25.1-36.5) 08/06/17 13:37 Attending/Attestation - Attestation I have personally seen and examined this patient.: Yes I have fully participated in the care of the patient.: Yes I have reviewed all pertinent clinical information, including history, physical exam and plan: Yes Notes (Text): 08/08/17 15:01 56 year old female with past medical history of hypertension, substance abuse and alcohol abuse who presented with altered mental status and SIRS with elevated lactic acid and leukocytosis. Her mental status improved to baseline. CT head was negative for acute findings. Symptoms likely related to substance abuse. She was counselled on risks of continued substance and alcohol abuse. She was on iv fluids and antibiotics. Her lactic acid and leukocytosis improved. She had echocardiogram and EEG done this morning. LFTs are improving. Sydney Mccartney MD Hospitalist.
--- NOTE | 2017-08-08 14:49 | CP.PCM.DIS ---
<Zelalem Zimmerman - Last Filed: 08/09/17 16:11> Provider - Provider Date of Admission: 08/06/17 14:39 Attending physician: Sydney Mccartney MD Primary care physician: Jorge Luis Rosas Consults: ID, Neuro Time Spent in preparation of Discharge (in minutes): 40 Diagnosis - Discharge Diagnosis (1) Lactic acidosis Status: Acute (2) Overdose Status: Acute (3) Sepsis Status: Acute (4) UTI (urinary tract infection) Status: Acute Hospital Course - Lab Results Lab Results: Micro Results 08/06/17 15:15 Urine,Clean Catch Urine Culture - Final 10-50,000 CFU/ML. MULTIPLE SPECIES. PROBABLE CONTAMINATION. 08/06/17 15:00 Blood Blood Culture - Preliminary NO GROWTH AFTER 24 HOURS Most Recent Lab Values WBC 5.2 10^3/ul (4.5-11.0) D 08/08/17 06:30 RBC 3.57 10^6/uL (3.5-6.1) 08/08/17 06:30 Hgb 11.0 g/dL (12.0-16.0) L 08/08/17 06:30 Hct 31.8 % (36.0-48.0) L 08/08/17 06:30 MCV 89.1 fl (80.0-105.0) 08/08/17 06:30 MCH 30.8 pg (25.0-35.0) 08/08/17 06:30 MCHC 34.6 g/dl (31.0-37.0) 08/08/17 06:30 RDW 13.3 % (11.5-14.5) 08/08/17 06:30 Plt Count 264 10^3/uL (120.0-450.0) 08/08/17 06:30 MPV 9.3 fl (7.0-11.0) 08/08/17 06:30 Gran % 47.6 % (50.0-68.0) L 08/08/17 06:30 Lymph % (Auto) 39.0 % (22.0-35.0) H 08/08/17 06:30 [place] % (Auto) 9.2 % (1.0-6.0) H 08/08/17 06:30 Eos % (Auto) 3.8 % (1.5-5.0) 08/08/17 06:30 Baso % (Auto) 0.4 % (0.0-3.0) 08/08/17 06:30 Gran # 2.47 (1.4-6.5) 08/08/17 06:30 Lymph # (Auto) 2.0 (1.2-3.4) 08/08/17 06:30 [place] # (Auto) 0.5 (0.1-0.6) 08/08/17 06:30 Eos # (Auto) 0.2 (0.0-0.7) 08/08/17 06:30 Baso # (Auto) 0.02 K/mm3 (0.0-2.0) 08/08/17 06:30 PT 12.9 SECONDS (9.4-12.5) H 08/06/17 13:37 INR 1.12 (0.93-1.08) H 08/06/17 13:37 APTT 26.1 Seconds (25.1-36.5) 08/06/17 13:37 pCO2 41 mm/Hg (35-45) 08/07/17 05:30 pO2 102.0 mm/Hg (80-100) H 08/07/17 05:30 HCO3 26.0 mmol/L (21-28) 08/07/17 05:30 ABG pH 7.41 (7.35-7.45) 08/07/17 05:30 ABG Total CO2 27.3 mmol.L (22-28) 08/07/17 05:30 ABG O2 Saturation 99.2 % (95-98) H 08/07/17 05:30 ABG Base Excess 1.2 mmol/L (-2.0-3.0) 08/07/17 05:30 ABG Potassium 3.4 mmol/L (3.6-5.2) L 08/07/17 05:30 VBG pH 7.37 (7.32-7.43) 08/06/17 21:00 VBG pCO2 51.0 (40-60) 08/06/17 21:00 VBG HCO3 29.5 mmol/l (21-28) H 08/06/17 21:00 VBG Total CO2 31.1 mmol.L (22-28) H 08/06/17 21:00 VBG O2 Sat (Calc) 46.7 % (40-65) 08/06/17 21:00 VBG Base Excess 3.1 mmol/L (0.0-2.0) H 08/06/17 21:00 VBG Potassium 4.3 mmol/L (3.6-5.2) 08/06/17 21:00 Sodium 140.0 mmol/L (132-148) 08/07/17 05:30 Chloride 111.0 mmol/L (98-107) H 08/07/17 05:30 Glucose 92 mg/dl (65-105) 08/07/17 05:30 Lactate 0.6 mmol/L (0.7-2.1) L 08/07/17 05:30 FiO2 28.0 % 08/07/17 05:30 Sodium 142 mmol/L (132-148) 08/08/17 06:30 Potassium 3.8 mmol/L (3.6-5.0) 08/08/17 06:30 Chloride 104 mmol/L (98-107) 08/08/17 06:30 Carbon Dioxide 30 mmol/L (21-33) 08/08/17 06:30 Anion Gap 12 (10-20) 08/08/17 06:30 BUN 8 mg/dL (7-21) 08/08/17 06:30 Creatinine 0.8 mg/dl (0.7-1.2) 08/08/17 06:30 Est GFR ( Amer) > 60 08/08/17 06:30 Est GFR (Non-Af Amer) > 60 08/08/17 06:30 POC Glucose (mg/dL) 78 mg/dL (65-110) 08/07/17 05:52 Random Glucose 100 mg/dL (70-110) 08/08/17 06:30 Hemoglobin A1c 5.1 % (4.2-6.5) 08/06/17 13:37 Calcium 9.3 mg/dL (8.4-10.5) 08/08/17 06:30 Magnesium 2.1 mg/dL (1.7-2.2) 08/08/17 06:30 Total Bilirubin 1.1 mg/dL (0.2-1.3) 08/08/17 06:30 AST 50 U/L (14-36) H D 08/08/17 06:30 ALT 55 U/L (7-56) 08/08/17 06:30 Alkaline Phosphatase 82 U/L (38-126) 08/08/17 06:30 Lactate Dehydrogenase 842 U/L (333-699) H 08/06/17 13:37 Total Creatine Kinase 285 U/L (35-230) H 08/07/17 05:15 CK-MB (CK-2) 0.7 ng/mL (0.0-3.6) 08/07/17 05:15 CK-MB (CK-2) % Cancelled 08/07/17 05:15 Troponin I 0.04 ng/mL 08/07/17 01:10 Total Protein 7.5 g/dL (5.8-8.3) 08/08/17 06:30 Albumin 4.0 g/dL (3.0-4.8) 08/08/17 06:30 Globulin 3.5 gm/dL 08/08/17 06:30 Albumin/Globulin Ratio 1.1 (1.1-1.8) 08/08/17 06:30 Triglycerides 67 mg/dL (35-160) 08/07/17 05:15 Cholesterol 180 mg/dL (130-200) 08/07/17 05:15 LDL Cholesterol Direct 86 mg/dL (0-129) 08/07/17 05:15 HDL Cholesterol 57 mg/dL (29-60) 08/07/17 05:15 Procalcitonin 0.08 NG/ML (0.19-0.49) L 08/06/17 16:30 Thyroxine (T4) 8.1 ug/dL (5.5-11.0) 08/06/17 13:37 Total T3 1.09 ng/mL (0.97-1.69) 08/06/17 13:37 TSH 3rd Generation 0.76 mIU/mL (0.46-4.68) 08/06/17 13:37 Prolactin 38.5 ng/mL (3.0-18.9) H 08/06/17 16:30 Arterial Blood Potassium 3.4 mmol/L (3.6-5.2) L 08/07/17 05:30 Venous Blood Potassium 4.3 mmol/L (3.6-5.2) 08/06/17 21:00 Urine Color Yellow (YELLOW) 08/06/17 15:15 Urine Appearance Sl cloudy (CLEAR) 08/06/17 15:15 Urine pH 6.0 (4.7-8.0) 08/06/17 15:15 Ur Specific [place] <= 1.005 (1.005-1.035) 08/06/17 15:15 Urine Protein Negative mg/dL (<30 mg/dL) 08/06/17 15:15 Urine Glucose (UA) 100 mg/dL (NEGATIVE) H 08/06/17 15:15 Urine Ketones Negative mg/dL (NEGATIVE) 08/06/17 15:15 Urine Blood Trace-lysed (NEGATIVE) H 08/06/17 15:15 Urine Nitrate Negative (NEGATIVE) 08/06/17 15:15 Urine Bilirubin Negative (NEGATIVE) 08/06/17 15:15 Urine Urobilinogen 0.2 E.U./dL (<1 E.U./dL) 08/06/17 15:15 Ur Leukocyte Esterase Small [place]/uL (NEGATIVE) H 08/06/17 15:15 Urine RBC 1 - 3 /hpf (0-2) 08/06/17 15:15 Urine WBC 10 - 15 /hpf (0-6) 08/06/17 15:15 Ur Epithelial Cells 4 - 5 /hpf (0-5) 08/06/17 15:15 Urine Bacteria Mod (NEG) 08/06/17 15:15 Salicylates < 1 mg/dL (2.0-20.0) L 08/06/17 13:37 Urine Opiates Screen Positive (NEGATIVE) H 08/06/17 15:15 Urine Methadone Screen Negative (NEGATIVE) 08/06/17 15:15 Acetaminophen < 10.0 ug/ml (10.0-20.0) L 08/06/17 13:37 Ur Barbiturates Screen Negative (NEGATIVE) 08/06/17 15:15 Ur Phencyclidine Scrn Negative (NEGATIVE) 08/06/17 15:15 Ur Amphetamines Screen Negative (NEGATIVE) 08/06/17 15:15 U Benzodiazepines Scrn Negative (NEGATIVE) 08/06/17 15:15 U Oth Cocaine Metabols Negative (NEGATIVE) 08/06/17 15:15 U Cannabinoids Screen Negative (NEGATIVE) 08/06/17 15:15 Alcohol, Quantitative < 10 mg/dL (0-10) 08/06/17 13:37 Hepatitis A IgM Ab Negative (NEGATIVE) 08/06/17 16:30 Hep Bs Antigen Negative (NEGATIVE) 08/06/17 16:30 Hep B Core IgM Ab Negative (NEGATIVE) 08/06/17 16:30 Hepatitis C Antibody Negative (NEGATIVE) 08/06/17 16:30 - Hospital Course Hospital Course: 56 y o female PMHx HTN, polysubstance abuse, who presented to the ED on 08/06/17 s/p heroin vs. suboxone injection with AMS. Pt was given narcan in the field and evaluated in ED with elevated lactate 6.1 , leukocytosis, temp 100 F, and thus was admitted to ICU for AMS 2/2 polysubstance abuse vs. seizure vs. infectious etiology. CT head was negative for acute changes. Pt responded to IVF challenge, repeat lactate wnl, was downgraded to med/surg floor. Pt received vanco/zosyn for broad spectrum coverage. ID was consulted on pt, recommended pt be treated with rocephin due to pos leuk esterase in U/a. Blood cxs were negative during admission. Neuro was also consulted for seizure work- up. Pt also had elevated transaminases which trended down during hospital course. CT abd pelvis demonstrated cholelithiasis. Pt was constipated during admission, was given enema and miralax with positive response. On day of discharge, pt was tolerating regular diet, ambulating, voiding well, passing flatus, and had BM. Echo results indicated no vegetation on valves, normal LV function and normal ejection fraction, no indication of arrhythmia or endocarditis. EEG was within normal limits. She was d/c to home in stable condition on 08/09/17, with instructions to f/u with Dr. Rosas as outpatient. No clinical evidence of seizure activity, including tongue biting, loss of bowel/ bladder function, or post-ictal state. Case discussed and reviewed with Dr. Sherrill Zimmerman PGY1 Discharge Exam - Head Exam Head Exam: ATRAUMATIC, NORMOCEPHALIC - Eye Exam Eye Exam: EOMI, Normal appearance, PERRL Pupil Exam: NORMAL ACCOMODATION - ENT Exam ENT Exam: Mucous Membranes Moist, Normal Exam, Normal Oropharynx - Respiratory Exam Respiratory Exam: Clear to PA & Lateral, NORMAL BREATHING PATTERN - Cardiovascular Exam Cardiovascular Exam: REGULAR RHYTHM - GI/Abdominal Exam GI & Abdominal Exam: Normal Bowel Sounds, Soft, Unremarkable - Extremities Exam Extremities exam: full ROM, normal capillary refill, normal inspection, pedal pulses present - Neurological Exam Neurological exam: Alert, Normal Gait, Oriented x3, Reflexes Normal - Psychiatric Exam Psychiatric exam: Normal Affect, Normal Mood - Skin Skin Exam: Dry, Intact, Normal Color, Warm Discharge Plan - Follow Up Plan Condition: IMPROVED Disposition: HOME/ ROUTINE Instructions: Heart Healthy Diet, Smoking: Not Just Harmful to Your Lungs and Heart, Why Vaccines Are Important for Everyone, Urinary Tract Infection in Women (DC), Dysuria (GEN) Additional Instructions: Follow up with Dr. Rosas within 1 week upon discharge Take medications as prescribed to you Discontinue recreational usage of heroin and suboxone If symptoms worsen or recur, please go to your nearest emergency department. Referrals: Jorge Luis Rosas MD [Primary Care Provider] - <Sydney Mccartney - Last Filed: 08/09/17 17:12> Provider - Provider Date of Admission: 08/06/17 14:39 Attending physician: Sydney Mccartney MD Primary care physician: Jorge Luis Rosas [facility] Course - Lab Results Lab Results: Micro Results 08/06/17 15:00 Blood Blood Culture - Preliminary NO GROWTH AFTER 3 DAYS 08/07/17 08:00 Naris MRSA Culture (Admit) - Final MRSA NOT DETECTED 08/06/17 15:15 Urine,Clean Catch Urine Culture - Final 10-50,000 CFU/ML. MULTIPLE SPECIES. PROBABLE CONTAMINATION. Most Recent Lab Values WBC 5.6 10^3/ul (4.5-11.0) 08/09/17 06:30 RBC 3.87 10^6/uL (3.5-6.1) 08/09/17 06:30 Hgb 11.7 g/dL (12.0-16.0) L 08/09/17 06:30 Hct 34.3 % (36.0-48.0) L 08/09/17 06:30 MCV 88.6 fl (80.0-105.0) 08/09/17 06:30 MCH 30.2 pg (25.0-35.0) 08/09/17 06:30 MCHC 34.1 g/dl (31.0-37.0) 08/09/17 06:30 RDW 13.2 % (11.5-14.5) 08/09/17 06:30 Plt Count 290 10^3/uL (120.0-450.0) 08/09/17 06:30 MPV 9.3 fl (7.0-11.0) 08/09/17 06:30 Gran % 35.2 % (50.0-68.0) L 08/09/17 06:30 Lymph % (Auto) 52.8 % (22.0-35.0) H 08/09/17 06:30 [place] % (Auto) 6.8 % (1.0-6.0) H 08/09/17 06:30 Eos % (Auto) 4.8 % (1.5-5.0) 08/09/17 06:30 Baso % (Auto) 0.4 % (0.0-3.0) 08/09/17 06:30 Gran # 1.98 (1.4-6.5) 08/09/17 06:30 Lymph # (Auto) 3.0 (1.2-3.4) 08/09/17 06:30 [place] # (Auto) 0.4 (0.1-0.6) 08/09/17 06:30 Eos # (Auto) 0.3 (0.0-0.7) 08/09/17 06:30 Baso # (Auto) 0.02 K/mm3 (0.0-2.0) 08/09/17 06:30 PT 12.9 SECONDS (9.4-12.5) H 08/06/17 13:37 INR 1.12 (0.93-1.08) H 08/06/17 13:37 APTT 26.1 Seconds (25.1-36.5) 08/06/17 13:37 pCO2 41 mm/Hg (35-45) 08/07/17 05:30 pO2 102.0 mm/Hg (80-100) H 08/07/17 05:30 HCO3 26.0 mmol/L (21-28) 08/07/17 05:30 ABG pH 7.41 (7.35-7.45) 08/07/17 05:30 ABG Total CO2 27.3 mmol.L (22-28) 08/07/17 05:30 ABG O2 Saturation 99.2 % (95-98) H 08/07/17 05:30 ABG Base Excess 1.2 mmol/L (-2.0-3.0) 08/07/17 05:30 ABG Potassium 3.4 mmol/L (3.6-5.2) L 08/07/17 05:30 VBG pH 7.37 (7.32-7.43) 08/06/17 21:00 VBG pCO2 51.0 (40-60) 08/06/17 21:00 VBG HCO3 29.5 mmol/l (21-28) H 08/06/17 21:00 VBG Total CO2 31.1 mmol.L (22-28) H 08/06/17 21:00 VBG O2 Sat (Calc) 46.7 % (40-65) 08/06/17 21:00 VBG Base Excess 3.1 mmol/L (0.0-2.0) H 08/06/17 21:00 VBG Potassium 4.3 mmol/L (3.6-5.2) 08/06/17 21:00 Sodium 140.0 mmol/L (132-148) 08/07/17 05:30 Chloride 111.0 mmol/L (98-107) H 08/07/17 05:30 Glucose 92 mg/dl (65-105) 08/07/17 05:30 Lactate 0.6 mmol/L (0.7-2.1) L 08/07/17 05:30 FiO2 28.0 % 08/07/17 05:30 Sodium 143 mmol/L (132-148) 08/09/17 06:30 Potassium 4.4 mmol/L (3.6-5.0) 08/09/17 06:30 Chloride 103 mmol/L (98-107) 08/09/17 06:30 Carbon Dioxide 30 mmol/L (21-33) 08/09/17 06:30 Anion Gap 15 (10-20) 08/09/17 06:30 BUN 10 mg/dL (7-21) 08/09/17 06:30 Creatinine 0.8 mg/dl (0.7-1.2) 08/09/17 06:30 Est GFR ( Amer) > 60 08/09/17 06:30 Est GFR (Non-Af Amer) > 60 08/09/17 06:30 POC Glucose (mg/dL) 78 mg/dL (65-110) 08/07/17 05:52 Random Glucose 105 mg/dL (70-110) 08/09/17 06:30 Hemoglobin A1c 5.1 % (4.2-6.5) 08/06/17 13:37 Calcium 9.6 mg/dL (8.4-10.5) 08/09/17 06:30 Magnesium 2.1 mg/dL (1.7-2.2) 08/09/17 06:30 Total Bilirubin 1.0 mg/dL (0.2-1.3) 08/09/17 06:30 AST 110 U/L (14-36) H D 08/09/17 06:30 ALT 59 U/L (7-56) H 08/09/17 06:30 Alkaline Phosphatase 83 U/L (38-126) 08/09/17 06:30 Lactate Dehydrogenase 842 U/L (333-699) H 08/06/17 13:37 Total Creatine Kinase 285 U/L (35-230) H 08/07/17 05:15 CK-MB (CK-2) 0.7 ng/mL (0.0-3.6) 08/07/17 05:15 CK-MB (CK-2) % Cancelled 08/07/17 05:15 Troponin I 0.04 ng/mL 08/07/17 01:10 Total Protein 8.3 g/dL (5.8-8.3) 08/09/17 06:30 Albumin 4.5 g/dL (3.0-4.8) 08/09/17 06:30 Globulin 3.8 gm/dL 08/09/17 06:30 Albumin/Globulin Ratio 1.2 (1.1-1.8) 08/09/17 06:30 Triglycerides 67 mg/dL (35-160) 08/07/17 05:15 Cholesterol 180 mg/dL (130-200) 08/07/17 05:15 LDL Cholesterol Direct 86 mg/dL (0-129) 08/07/17 05:15 HDL Cholesterol 57 mg/dL (29-60) 08/07/17 05:15 Procalcitonin 0.08 NG/ML (0.19-0.49) L 08/06/17 16:30 Thyroxine (T4) 8.1 ug/dL (5.5-11.0) 08/06/17 13:37 Total T3 1.09 ng/mL (0.97-1.69) 08/06/17 13:37 TSH 3rd Generation 0.76 mIU/mL (0.46-4.68) 08/06/17 13:37 Prolactin 38.5 ng/mL (3.0-18.9) H 08/06/17 16:30 Arterial Blood Potassium 3.4 mmol/L (3.6-5.2) L 08/07/17 05:30 Venous Blood Potassium 4.3 mmol/L (3.6-5.2) 08/06/17 21:00 Urine Color Yellow (YELLOW) 08/06/17 15:15 Urine Appearance Sl cloudy (CLEAR) 08/06/17 15:15 Urine pH 6.0 (4.7-8.0) 08/06/17 15:15 Ur Specific [place] <= 1.005 (1.005-1.035) 08/06/17 15:15 Urine Protein Negative mg/dL (<30 mg/dL) 08/06/17 15:15 Urine Glucose (UA) 100 mg/dL (NEGATIVE) H 08/06/17 15:15 Urine Ketones Negative mg/dL (NEGATIVE) 08/06/17 15:15 Urine Blood Trace-lysed (NEGATIVE) H 08/06/17 15:15 Urine Nitrate Negative (NEGATIVE) 08/06/17 15:15 Urine Bilirubin Negative (NEGATIVE) 08/06/17 15:15 Urine Urobilinogen 0.2 E.U./dL (<1 E.U./dL) 08/06/17 15:15 Ur Leukocyte Esterase Small [place]/uL (NEGATIVE) H 08/06/17 15:15 Urine RBC 1 - 3 /hpf (0-2) 08/06/17 15:15 Urine WBC 10 - 15 /hpf (0-6) 08/06/17 15:15 Ur Epithelial Cells 4 - 5 /hpf (0-5) 08/06/17 15:15 Urine Bacteria Mod (NEG) 08/06/17 15:15 Salicylates < 1 mg/dL (2.0-20.0) L 08/06/17 13:37 Urine Opiates Screen Positive (NEGATIVE) H 08/06/17 15:15 Urine Methadone Screen Negative (NEGATIVE) 08/06/17 15:15 Acetaminophen < 10.0 ug/ml (10.0-20.0) L 08/06/17 13:37 Ur Barbiturates Screen Negative (NEGATIVE) 08/06/17 15:15 Ur Phencyclidine Scrn Negative (NEGATIVE) 08/06/17 15:15 Ur Amphetamines Screen Negative (NEGATIVE) 08/06/17 15:15 U Benzodiazepines Scrn Negative (NEGATIVE) 08/06/17 15:15 U Oth Cocaine Metabols Negative (NEGATIVE) 08/06/17 15:15 U Cannabinoids Screen Negative (NEGATIVE) 08/06/17 15:15 Alcohol, Quantitative < 10 mg/dL (0-10) 08/06/17 13:37 Hepatitis A IgM Ab Negative (NEGATIVE) 08/06/17 16:30 Hep Bs Antigen Negative (NEGATIVE) 08/06/17 16:30 Hep B Core IgM Ab Negative (NEGATIVE) 08/06/17 16:30 Hepatitis C Antibody Negative (NEGATIVE) 08/06/17 16:30 Discharge Plan - Follow Up Plan Patient education suggested?: Yes Attending/Attestation - Attestation I have personally seen and examined this patient.: Yes I have fully participated in the care of the patient.: Yes I have reviewed all pertinent clinical information, including history, physical exam and plan: Yes Notes (Text): 08/09/17 17:11 56 year old female with past medical history of hypertension, substance abuse and alcohol abuse who presented with altered mental status and SIRS with elevated lactic acid and leukocytosis. Symptoms likely related to substance abuse. She was counselled on risks of continued substance and alcohol abuse. Her mental status improved to baseline. CT head was negative for acute findings. EEG was negative as well. She was on iv fluids and antibiotics. Her lactic acid and leukocytosis improved. Antibiotics were discontinued. Her LFTs fluctuated, likely secondary to ETOH +/- medications (antibiotics). Patient is discharged home to follow up with her pmd. Monitor LFTs with pmd as outpatient. Counselled on risks of continued alcohol and substance abuse. Sydney Mccartney MD Hospitalist.
--- NOTE | 2017-08-08 17:35 | CP.PCM.PN ---
Subjective - Date & Time of Evaluation Date of Evaluation: 08/08/17 Time of Evaluation: 17:33 - Subjective Subjective: Infectious Disease Follow Up: August 08, 2017 56 yo female found by boyfriend in altered mental status kneeling the bathroom with dilated pupils. Bag of heroin found next to patient at that time. Patient was given Narcan by EMS and again in ER. The patient has been mostly uncooperative, confused, and agitated. As per boyfriend, the patient was in her usual state of health on the morning of admission. The patient may have had some chest pain for the past few weeks. Patient is awake and alert now. She is adamant that her children not know about any of her drug abuse. Objective - Vital Signs/Intake and Output Vital Signs (last 24 hours): Temp Pulse Resp BP Pulse Ox 99.2 F 65 20 138/81 99 08/08/17 14:00 08/08/17 14:00 08/08/17 14:00 08/08/17 14:00 08/08/17 14:00 Intake and Output: 08/08/17 08/08/17 06:59 18:59 Intake Total 1160 Balance 1160 - Medications Medications: Current Medications Amlodipine Besylate (Norvasc) 10 mg PO DAILY [facility] Last Admin: 08/08/17 11:14 Dose: 10 mg Aspirin (Aspirin Chewable) 81 mg PO DAILY [facility] Last Admin: 08/08/17 11:14 Dose: 81 mg Enoxaparin Sodium (Lovenox) 40 mg SC DAILY [facility] PRN Reason: Protocol Last Admin: 08/08/17 11:15 Dose: 40 mg Lactated Ringer's (Lactated Ringer's) 1,000 mls @ 75 mls/hr IV .[id number] [facility] Lorazepam (Ativan) 2 mg IVP Q6H PRN; Protocol PRN Reason: Agitation Pantoprazole Sodium (Protonix Ec Tab) 40 mg PO ACB [facility] Polyethylene Glycol (Miralax) 17 gm PO DAILY [facility] Last Admin: 08/08/17 11:15 Dose: Not Given - Labs Labs: 08/08/17 06:30 08/08/17 06:30 PT 12.9 SECONDS (9.4-12.5) H 08/06/17 13:37 INR 1.12 (0.93-1.08) H 08/06/17 13:37 APTT 26.1 Seconds (25.1-36.5) 08/06/17 13:37 - Constitutional Appears: Non-toxic, No Acute Distress - Head Exam Head Exam: ATRAUMATIC, NORMOCEPHALIC - Eye Exam Eye Exam: EOMI, PERRL Pupil Exam: NORMAL ACCOMODATION, PERRL - ENT Exam ENT Exam: Mucous Membranes Moist, Normal External Ear Exam, TM's Normal Bilaterally - Neck Exam Neck Exam: Full ROM, Normal Inspection - Respiratory Exam Respiratory Exam: Clear to Ausculation Bilateral, NORMAL BREATHING PATTERN. absent: Rales, Rhonchi, Wheezes - Cardiovascular Exam Cardiovascular Exam: REGULAR RHYTHM, RRR, +S1, +S2 - GI/Abdominal Exam GI & Abdominal Exam: Soft, Normal Bowel Sounds. absent: Distended, Tenderness - Extremities Exam Extremities Exam: Full ROM, Normal Inspection - Neurological Exam Neurological Exam: Alert, Awake, CN II-XII Intact, Oriented x3 - Psychiatric Exam Psychiatric exam: Normal Affect, Normal Mood - Skin Skin Exam: Intact, Normal Color Assessment and Plan - Assessment and Plan (Free Text) Assessment: 56 yo female found in altered mental status by boyfriend with bag of heroin nearby. The patient has leukocytosis, hypokalemia, elevates tranaminases, lactic acidosis. Started on Rocephin. Chest X-ray with no signs of active disease. CT abdomen with cholelithiasis but no signs of acute cholecystitis. Opiates positive on urine drug screen. Supportive care. Temperature up to 100.0 F. Cannot rule sepsis vs. aftereffects of excessive heroin ingestion and subsequent withdrawal. Maintain Rocephin for now. Can stop at third day of administration. Third day is today. Stop antibiotics. Cleared from ID perspective for discharge from hospital. Thank you for allowing me to participate in the care of the patient, we will follow with you.
[2017-08-09 07:09] LABS: BASO # 0.02 K/mm3 (0.0-2.0); BASO % 0.4 % (0.0-3.0); EOS # 0.3 (0.0-0.7); EOS % 4.8 % (1.5-5.0); GRAN # 1.98 (1.4-6.5); GRAN % 35.2 % (50.0-68.0); HEMOGLOBIN 11.7 g/dL (12.0-16.0); LYMPH % 52.8 % (22.0-35.0); MEAN CELL VOLUME 88.6 fl (80.0-105.0); MEAN CORPUSCULAR HEMOGLOBIN 30.2 pg (25.0-35.0); MEAN CORPUSCULAR HGB CONC 34.1 g/dl (31.0-37.0); MEAN PLATELET VOLUME 9.3 fl (7.0-11.0); MONO # 0.4 (0.1-0.6); MONO % 6.8 % (1.0-6.0); RBC 3.87 10^6/uL (3.5-6.1); RED CELL DISTRIBUTION WIDTH 13.2 % (11.5-14.5); WHITE BLOOD COUNT 5.6 10^3/ul (4.5-11.0)
[2017-08-09] MEDS: Pantoprazole 40 mg EC Tab PO SCH ×2 (07:41→08:11)
[2017-08-09 07:42] LABS: ALB/GLOB RATIO 1.2 (1.1-1.8); ALBUMIN 4.5 g/dL (3.0-4.8); ALT/SGPT 59 U/L (7-56); AST/SGOT 110 U/L (14-36); BLOOD UREA NITROGEN 10 mg/dL (7-21); CALCIUM 9.6 mg/dL (8.4-10.5); GFR AFRICAN-AMERICAN > 60; GFR NON-AFRICAN AMERICAN > 60
[2017-08-09 08:08] VITALS: O2SAT 99
--- NOTE | 2017-08-09 09:08 | CARD ---
APPROVED REPORT EXAM: Two-dimensional and M-mode echocardiogram with Doppler and color Doppler. Other Information Quality : AverageRhythm : INDICATION HBP, SINUS TACHY 2D DIMENSIONS Left Atrium (2D)3.5 (1.6-4.0cm)IVSd1.1 (0.7-1.1cm) LVDd3.1 (3.9-5.9cm)PWd1.1 (0.7-1.1cm) LVDs2.3 (2.5-4.0cm)FS (%) 25.2 % LVEF (%)51.0 (>50%) M-Mode DIMENSIONS Aortic Root2.60 (2.2-3.7cm)Aortic Cusp Exc.1.80 (1.5-2.0cm) Aortic Valve AoV Peak Hzphwcjv189.0cm/s Mitral Valve E/A ratio0.0 TDI E/Lateral E'0.0E/Medial E'0.0 Tricuspid Valve TR Peak [id number] [id number] Peak Gr.12mmHg [id number] LEFT VENTRICLE The left ventricle is normal size. There is normal left ventricular wall thickness. The left ventricular function is normal. The left ventricular ejection fraction is within the normal range. There is normal LV segmental wall motion. RIGHT VENTRICLE The right ventricle is normal size. ATRIA The left atrium size is normal. The right atrium size is normal. The interatrial septum is intact with no evidence for an atrial septal defect. AORTIC VALVE The aortic valve is normal in structure. MITRAL VALVE The mitral valve is normal in structure. TRICUSPID VALVE The tricuspid valve is normal in structure. There is mild tricuspid regurgitation. PULMONIC VALVE The pulmonic valve is not well visualized. GREAT VESSELS The aortic root is normal in size. PERICARDIAL EFFUSION There is no pericardial effusion. <Conclusion> The left ventricle is normal size. There is normal left ventricular wall thickness. The left ventricular function is normal. There is mild tricuspid regurgitation.
[2017-08-09] MEDS: POLYETHYLENE GLYCOL 3350 17 GM/Dose PACKET PO SCH (09:26)
[2017-08-09] MEDS: Enoxaparin 40 mg Syringe SC SCH (09:26)
--- NOTE | 2017-08-09 14:22 | PCM.EEG ---
Electroencephalogram Report - Electroencephalogram Report Procedure Date: 08/08/17 Interpretation: Indication: History of Seizures. Medications were reviewed. Technical: This is a digitally recorded electroencephalogram. The international 10-20 electrode placement system is used for scalp electrode placement. Eighteen channels of scalp EEG are recorded Another channel was used for for ECG. The data are stored digitally and reviewed in reformatted montages for optimal display. Background: 8 to 10 hertz alpha activity was seen. Maximal over the posterior head region. These activities are symmetric on both sides. Impression: Normal EEG.
[2017-08-09 16:11] VITALS: BP 117/73; PULSE 59; RESP 18; TEMP 98.5
--- NOTE | 2017-08-09 19:25 | CP.PCM.PN ---
Subjective - Date & Time of Evaluation Date of Evaluation: 08/09/17 Time of Evaluation: 18:30 - Subjective Subjective: Infectious Disease Follow Up: August 09, 2017 56 yo female found by boyfriend in altered mental status kneeling the bathroom with dilated pupils. Bag of heroin found next to patient at that time. Patient was given Narcan by EMS and again in ER. The patient has been mostly uncooperative, confused, and agitated. As per boyfriend, the patient was in her usual state of health on the morning of admission. The patient may have had some chest pain for the past few weeks. Patient is awake and alert now. She is adamant that her children not know about any of her drug abuse. Objective - Vital Signs/Intake and Output Vital Signs (last 24 hours): Temp Pulse Resp BP Pulse Ox 98.5 F 59 L 18 117/73 99 08/09/17 14:00 08/09/17 14:00 08/09/17 14:00 08/09/17 14:00 08/09/17 14:00 Intake and Output: 08/09/17 08/10/17 18:59 06:59 Intake Total 660 Balance 660 - Labs Labs: 08/09/17 06:30 08/09/17 06:30 PT 12.9 SECONDS (9.4-12.5) H 08/06/17 13:37 INR 1.12 (0.93-1.08) H 08/06/17 13:37 APTT 26.1 Seconds (25.1-36.5) 08/06/17 13:37 - Constitutional Appears: Non-toxic, No Acute Distress - Head Exam Head Exam: ATRAUMATIC, NORMOCEPHALIC - Eye Exam Eye Exam: EOMI, PERRL Pupil Exam: NORMAL ACCOMODATION, PERRL - ENT Exam ENT Exam: Mucous Membranes Moist, Normal External Ear Exam, TM's Normal Bilaterally - Neck Exam Neck Exam: Full ROM, Normal Inspection - Respiratory Exam Respiratory Exam: Clear to Ausculation Bilateral, NORMAL BREATHING PATTERN. absent: Rales, Rhonchi, Wheezes - Cardiovascular Exam Cardiovascular Exam: REGULAR RHYTHM, RRR, +S1, +S2 - GI/Abdominal Exam GI & Abdominal Exam: Soft, Normal Bowel Sounds. absent: Distended, Tenderness - Extremities Exam Extremities Exam: Full ROM, Normal Inspection - Neurological Exam Neurological Exam: Alert, Awake, CN II-XII Intact, Oriented x3 - Psychiatric Exam Psychiatric exam: Normal Affect, Normal Mood - Skin Skin Exam: Intact, Normal Color Assessment and Plan - Assessment and Plan (Free Text) Assessment: 56 yo female found in altered mental status by boyfriend with bag of heroin nearby. The patient has leukocytosis, hypokalemia, elevates tranaminases, lactic acidosis. Started on Rocephin. Chest X-ray with no signs of active disease. CT abdomen with cholelithiasis but no signs of acute cholecystitis. Opiates positive on urine drug screen. Supportive care. Temperature up to 100.0 F. Cannot rule sepsis vs. aftereffects of excessive heroin ingestion and subsequent withdrawal. Maintain Rocephin for now. Can stop at third day of administration. Third day is today. Stop antibiotics. Cleared from ID perspective for discharge from hospital. Thank you for allowing me to participate in the care of the patient, we will follow with you.
== END 2017-08-09 18:28 | disposition home or self-care (01) | DRG 582 ==
LOC: ED 13:09 → ERH 14:39 → CCU 16:37 → 5RSO 08-07 13:57
PROVIDERS: ADMIT Internal Medicine; ATTEND Internal Medicine
DX: T40.2X1A Poisoning by other opioids, accidental (unintentional), initial encounter (principal); A41.9 Sepsis, unspecified organism; E87.2 Acidosis; N39.0 Urinary tract infection, site not specified; E87.6 Hypokalemia; F11.10 Opioid abuse, uncomplicated; I10 Essential (primary) hypertension; K59.00 Constipation, unspecified; K80.20 Calculus of gallbladder without cholecystitis without obstruction; F10.10 Alcohol abuse, uncomplicated; Y90.0 Blood alcohol level of less than 20 mg/100 ml; Z82.49 Family history of ischemic heart disease and other diseases of the circulatory system

== ENCOUNTER 2017-09-18 20:26 | Emergency (ER) | payer MEDICAID ==
[2017-09-18 20:26] VITALS: BMI 30.3
[2017-09-18 21:18] LABS: HEMOGLOBIN 11.8 g/dL (12.0-16.0); MEAN CELL VOLUME 87.9 fl (80.0-105.0); MEAN CORPUSCULAR HEMOGLOBIN 30.3 pg (25.0-35.0); MEAN CORPUSCULAR HGB CONC 34.5 g/dl (31.0-37.0); MEAN PLATELET VOLUME 9.6 fl (7.0-11.0); RBC 3.89 10^6/uL (3.5-6.1); RED CELL DISTRIBUTION WIDTH 13.2 % (11.5-14.5); WHITE BLOOD COUNT 5.2 10^3/ul (4.5-11.0)
[2017-09-18 21:24] LABS: ALB/GLOB RATIO 1.3 (1.1-1.8); ALBUMIN 4.8 g/dL (3.0-4.8); ALT/SGPT 44 U/L (7-56); AST/SGOT 59 U/L (14-36); BLOOD UREA NITROGEN 16 mg/dL (7-21); CALCIUM 9.8 mg/dL (8.4-10.5); GFR AFRICAN-AMERICAN > 60; GFR NON-AFRICAN AMERICAN > 60; URIC ACID 4.8 mg/dL (2.5-6.2)
--- NOTE | 2017-09-18 21:50 | ED PDOC ---
Arrival/HPI - General Chief Complaint: Lower Extremity Problem/Injury Time Seen by Provider: 09/18/17 20:49 Historian: Patient - History of Present Illness Narrative History of Present Illness (Text): 09/18/17 20:50 Jennifer Nielsen is a 57 year old female, whose past medical history includes hypertension on Amlodipine and substance abuse, who presents to the Emergency department complaining of left ankle swelling. Patient also complaining of associated vague discomfort to the area, denies any history of known trauma although recollects possibly bumping the area. Patient notes she does have a history of arthritis. Patient denies any fever, chills, chest pain, shortness of breath, calf pain, or any other complaints. Symptom Onset: Gradual Symptom Course: Unchanged Activities at Onset: Light Context: Home Past Medical History - Provider Review Nursing Documentation Reviewed: Yes - Infectious Disease Hx of Infectious Diseases: None - Reproductive Menopause: Yes - Cardiac Hx Cardiac Disorders: Yes (chest pain) Hx Hypertension: Yes - Pulmonary Hx Respiratory Disorders: No - Neurological Hx Neurological Disorder: No - HEENT Hx HEENT Disorder: No - Renal Hx Renal Disorder: No - Endocrine/Metabolic Hx Endocrine Disorders: No - Hematological/Oncological Hx Blood Disorders: No - Integumentary Hx Dermatological Disorder: Yes Other/Comment: dark skin discolorations ble - Musculoskeletal/Rheumatological Hx Musculoskeletal Disorders: Yes Hx Unsteady Gait: Yes - Gastrointestinal Hx Gastrointestinal Disorders: Yes (obese) - Genitourinary/Gynecological Hx Genitourinary Disorders: No - Psychiatric Hx Psychophysiologic Disorder: Yes Hx Substance Use: Yes (heroine) Other/Comment: heroine abuse, occasional beer - Anesthesia Hx Anesthesia: No Family/Social History - Physician Review Nursing Documentation Reviewed: Yes Family/Social History: Unknown Family HX Smoking Status: Unknown If Ever Smoked Hx Alcohol Use: No Hx Substance Use: Yes (heroine) Allergies/Home Meds Allergies/Adverse Reactions: Allergies No Known Allergies Allergy (Verified 09/18/17 20:40) Review of Systems - Physician Review All systems were reviewed & negative as marked: Yes - Review of Systems Constitutional: Normal. absent: Fevers Eyes: Normal ENT: Normal Respiratory: Normal. absent: SOB, Cough Cardiovascular: Normal. absent: Chest Pain Gastrointestinal: Normal. absent: Abdominal Pain, Diarrhea, Nausea, Vomiting Genitourinary Female: Normal. absent: Dysuria, Frequency, Hematuria, Urine Output Changes Musculoskeletal: Arthralgias ( ankle swelling). absent: Back Pain, Neck Pain Skin: Normal. absent: Rash Neurological: Normal. absent: Headache, Dizziness Endocrine: Normal Hemo/Lymphatic: Normal Psychiatric: Normal Physical Exam Vital Signs Reviewed: Yes Vital Signs Temp Pulse Resp BP Pulse Ox 09/19/17 00:48 98.0 F 82 16 142/85 99 09/18/17 20:37 99.5 F 89 18 155/81 H 100 Temperature: Afebrile Blood Pressure: Hypertensive Pulse: Regular Respiratory Rate: Normal Appearance: Positive for: Well-Appearing, Non-Toxic, Comfortable Pain Distress: None Mental Status: Positive for: Alert and Oriented X 3 - Systems Exam Head: Present: Atraumatic, Normocephalic Pupils: Present: PERRL Extroacular Muscles: Present: EOMI Conjunctiva: Present: Normal Ears: Present: Normal, NORMAL TM, Normal Canal. No: Erythema, TM Bulging, Fluid , TM Perf Mouth: Present: Moist Mucous Membranes Pharnyx: Present: Normal. No: ERYTHEMA, EXUDATE, TONSILS ENLARGED, Peritonsilar Swelling, Uvular Deviation, Muffled/Hoarse Voice, Strider, Soft Palate/Uvular Edema Nose (External): Present: Atraumatic Nose (Internal): Present: Normal Inspection Neck: Present: Normal Range of Motion. No: Meningeal Signs, MIDLINE TENDERNESS , Paraspinal Tenderness Respiratory/Chest: Present: Clear to Auscultation, Good Air Exchange. No: Respiratory Distress, Accessory Muscle Use Cardiovascular: Present: Regular Rate and Rhythm, Normal S1, S2. No: Murmurs Abdomen: No: Tenderness, Distention, Peritoneal Signs Back: Present: Normal Inspection. No: CVA Tenderness, Midline Tenderness, Paraspinal Tenderness Upper Extremity: Present: Normal Inspection. No: Cyanosis, Edema Lower Extremity: Present: Edema (Some edematous, non-pitting, swelling to left ankle), NORMAL PULSES, Normal ROM (Full ROM), Neurovascularly Intact. No: CALF TENDERNESS, Cyanosis, Da's Sign, Tenderness, Swelling (No evidence of right ankle swelling), Erythema (No overlying erythema), Deformity, Temperature Abnormalties (No warmth) Neurological: Present: GCS=15, CN II-XII Intact, Speech Normal, Motor Func Grossly Intact, Normal Sensory Function, Normal Cerebellar Funct Skin: Present: Warm, Dry, Normal Color. No: Rashes Psychiatric: Present: Alert, Oriented x 3, Normal Insight, Normal Concentration Medical Decision Making ED Course and Treatment: 09/18/17 20:50 Impression: 57 year old female complaining of ankle swelling. Differential Diagnosis included but are not limited to: Plan: -- US Duplex Lower Extremities -- XR Left Ankle -- Labs, uric acid -- Reassess and disposition Prior Visits: Notes and results from previous visits were reviewed. Progress Notes: 09/18/17 22:12 US Duplex Lower Extremities negative for DVT. 09/19/17 00:07 XR Left Ankle reviewed, shows avulsion fracture of left medial malleolus. - Lab Interpretations Lab Results: 09/18/17 21:09 09/18/17 21:09 Lab Results 09/18/17 21:09: WBC 5.2, RBC 3.89, Hgb 11.8 L, Hct 34.2 L, MCV 87.9, MCH 30.3, MCHC 34.5, RDW 13.2, Plt Count 285, MPV 9.6 09/18/17 21:09: Sodium 139, Potassium 4.2, Chloride 102, Carbon Dioxide 27, Anion Gap 14, BUN 16, Creatinine 0.8, Est GFR ( Amer) > 60, Est GFR (Non- Af Amer) > 60, Random Glucose 130 H, Uric Acid 4.8, Calcium 9.8, Total Bilirubin 0.6, AST 59 H D, ALT 44, Alkaline Phosphatase 93, Total Protein 8.6 H , Albumin 4.8, Globulin 3.7, Albumin/Globulin Ratio 1.3 I have reviewed the lab results: Yes - RAD Interpretation Radiology Orders: 09/18/17 21:50 ANKLE LEFT 3 VIEWS ROUTINE [RAD] Stat 09/18/17 21:53 DUPLEX LOWER EXTRM VEIN BILAT [US] Stat Vice President Business Development: ED Physician - Scribe Statement The provider has reviewed the documentation as recorded by the Kervin Grimm Provider Scribe Attestation: All medical record entries made by the Scribe were at my direction and personally dictated by me. I have reviewed the chart and agree that the record accurately reflects my personal performance of the history, physical exam, medical decision making, and the department course for this patient. I have also personally directed, reviewed, and agree with the discharge instructions and disposition. Disposition/Present on Arrival - Present on Arrival Any Indicators Present on Arrival: No History of DVT/PE: No History of Uncontrolled Diabetes: No Urinary Catheter: No History of Decub. Ulcer: No History Surgical Site Infection Following: None - Disposition Have Diagnosis and Disposition been Completed?: Yes Diagnosis: Avulsion injury of ankle region Disposition: HOME/ ROUTINE Disposition Time: 00:16 Patient Plan: Discharge Condition: GOOD Discharge Instructions (ExitCare): Avulsion Fracture (DC) Additional Instructions: Avoid bearing weight on the affected area/keep elevated/use crutches/follow up with the orthopedist this week Referrals: Jorge Luis Rosas MD [Primary Care Provider] - Follow up with primary [facility] [place] [Outside] - Follow up with primary Mckay Castellon DO [Staff Provider] - Follow up with primary Forms: [employer] [facility] ([employer])
[2017-09-19 00:49] VITALS: BP 142/85; PULSE 82; RESP 16; TEMP 98; O2SAT 99
--- NOTE | 2017-09-19 10:48 | RAD ---
Date of service: 09/18/2017 PROCEDURE: Left Ankle Radiographs. HISTORY: swelling COMPARISON: None FINDINGS: BONES: Plantar and Achilles Tendon insertion calcaneal spurs. Well corticated osseous excrescence adjacent to the distal tibia. No adjacent soft tissue swelling identified. JOINTS: Normal. No osteoarthritis. Ankle mortise maintained. Talar dome intact SOFT TISSUES: Normal. OTHER FINDINGS: None. IMPRESSION: No acute findings related to/accounting for the clinical presentation. Additional benign and/or incidental findings described above.
--- NOTE | 2017-09-19 11:38 | US ---
HISTORY: Leg pain and swelling. Evaluate for DVT PHYSICIAN(S): Blaine Ponce MD. TECHNIQUE: Duplex sonography and color-flow Doppler with graded compression were used to evaluate the deep venous systems of both lower extremities. The exam is somewhat limited by edema. FINDINGS: The visualized deep venous systems of both lower extremities are sonographically normal and compressible. Normal wave forms and augmentation are seen. There is no sonographic evidence for deep venous thrombosis in the visualized segments of both lower extremities. IMPRESSION: No sonographic evidence for deep venous thrombosis in the visualized segments of both lower extremities.
== END 2017-09-19 00:49 | disposition home or self-care (01) ==
LOC: ED 20:26
DX: S96.892A Other specified injury of other specified muscles and tendons at ankle and foot level, left foot, initial encounter (principal); X58.XXXA Exposure to other specified factors, initial encounter; Y92.9 Unspecified place or not applicable; I10 Essential (primary) hypertension